=== PATIENT | female | born 1935 | race Caucasian/White ===

== ENCOUNTER 2017-01-25 17:28 | Inpatient (IN) | payer BC, OTHER ==
[2017-01-25] MEDS ORDERED: ASPIRIN COATED 81 MG TABLET.EC PO ONE (17:56)
[2017-01-25] MEDS ORDERED: ASPIRIN 81 MG CHEWABLE TABLETS ONE (18:01)
--- NOTE | 2017-01-25 18:07 | PDOC ---
Attending Attestation - Resident Resident Name: Shivam Abebe - ED Attending Attestation I have performed the following: I have examined & evaluated the patient, The case was reviewed & discussed with the resident, I agree w/resident's findings & plan, Exceptions are as noted - HPI HPI: 01/25/17 18:00 81 yo female dev cp 1 hour prior to arrival.She took 2 SL NTG and then felt weak and was hypotensive when EMS arrived.She received IVF and her SBP was normal upon arrival and she was no longer having any chest pain or dizziness. HPI -she was going down her stairs at home ,dev left parasternal chest pain, nonradiating. It was 10/10 initially.She was sweaty when it happened, She took 2 SL NTG but then felt dizzy.lightheaded and sat down. PMH CAD,cardiac stents ekg nsr @ 79, no signs of ischemia 01/25/17 18:10 - Physicial Exam PE: 01/25/17 19:13 wnwd alert 81 female with no complaints currently.Her SL NTG resolved her chest pain HEENT-nontraumatic normocephalic/eyes brandee,wears eyeglasses/oropharynx no exudates neck supple lungs cta b/l cvs +holosytolic murmer,[id number] abd soft,nontender extremities-no edema neuro axox3,moving all extremities - Medical Decision Making 01/25/17 19:[address] Wynn requests Hospitalist admit for OBS telemetry/Dr Cori Robert (cards) agrees w OBS telemetry
[2017-01-25] MEDS ORDERED: ONDANSETRON 4 MG/2 ML VIAL ONE (18:12)
--- NOTE | 2017-01-25 18:39 | PDOC ---
History of Present Illness - General Chief Complaint: Chest Pain Stated Complaint: CHEST PAIN Time Seen by Provider: 01/25/17 17:34 History Source: Patient, EMS, Family - History of Present Illness Initial Comments: 01/25/17 18:18 The patient is an 81F with a PMH of CAD s/p 1 stent, HTN, DM who presents to the ED via EMS after an episode of CP. The patient states that she was going up the stairs and experienced CP. The pain was retrosternal, not associated with nausea or SOB, but was associated with diaphoresis. She describes the pain as a tightness, 10/10 in severity, does not radiate. The patient states that she then took 2 nitro and as she was going down the stairs, felt lightheaded. She sat down and was found by her family to be dozing into space. EMS was called. BP was 80/40 on arrival. They gave her 1 L of fluid and her BP became 148/86. Past History - Past Medical History Allergies/Adverse Reactions: Allergies Allergy/AdvReac Type Severity Reaction Status Date / Time No Known Allergies Allergy Verified 01/25/17 17:50 Home Medications: Ambulatory Orders Amlodipine Besylate [Norvasc -] 10 mg PO DAILY 01/25/17 Atorvastatin Ca [Lipitor] 40 mg PO HS 01/25/17 Docusate Sodium [Colace -] 100 mg PO DAILY 01/25/17 Doxylamine Succinate [Unisom Sleep Aid] 25 mg PO HS 01/25/17 Esomeprazole Magnesium [Nexium 24Hr] 20 mg PO DAILY 01/25/17 Levothyroxine [Synthroid -] 100 mcg PO DAILY 01/25/17 Losartan Potassium 100 mg PO DAILY 01/25/17 Metoprolol Succinate [Toprol Xl -] 50 mg PO DAILY 01/25/17 Nitroglycerin 0.4 mg SL PRN PRN 01/25/17 Sitagliptin Phos/Metformin HCl [Janumet 50-500 mg Tablet] 1 each PO DAILY Cardiac Disorders: Yes (cardiac stent.) Diabetes: Yes HTN: Yes Hypercholesterolemia: Yes - Surgical History Cardiac Surgery: Yes (cardiac stent) - Psycho/Social/Smoking Cessation Hx Anxiety: No Suicidal Ideation: No Smoking History: Never smoked Have you smoked in the past 12 months: No Information on smoking cessation initiated: No Hx Alcohol Use: No Drug/Substance Use Hx: No Substance Use Type: None Review of Systems - Review of Systems Able to Perform ROS?: Yes Is the patient limited Sammarinese proficient: No Constitutional: No: Chills, Fever HEENTM: No: Blurred Vision Respiratory: No: Cough, Shortness of Breath, Wheezing Cardiac (ROS): No: Chest Pain, Lightheadedness, Palpitations ABD/GI: No: Nausea, Vomiting : No: Burning, Dysuria Neurological: No: Headache, Numbness, Tingling, Weakness *Physical Exam - Vital Signs Last Vital Signs Temp Pulse Resp BP Pulse Ox 97.2 F L 78 18 173/64 100 01/25/17 17:28 01/25/17 17:28 01/25/17 17:28 01/25/17 17:28 01/25/17 17:28 - Physical Exam General Appearance: Yes: Nourished, Appropriately Dressed HEENT: positive: Normal Voice, Hearing Grossly Normal Respiratory/Chest: positive: Lungs Clear, Normal Breath Sounds. negative: Chest Tender, Respiratory Distress, Decreased Breath Sounds, Paradoxal Breathing , Rhonchi, Stridor, Wheezing, Hyperresonant Cardiovascular: positive: Regular Rhythm, Regular Rate, S1, S2. negative: Diastolic Murmur, Systolic Murmur Gastrointestinal/Abdominal: positive: Flat, Soft. negative: Tender, Distended, Guarding, Rebound, Tenderness Integumentary: positive: Dry, Warm. negative: Cold, Clammy Neurologic: positive: manager electronic II-XII NML intact, Fully Oriented, Alert, Normal Mood/ Affect, Normal Response, Motor Strength 5/5, Respond to painful stimul, Responsive, Finger to Nose (normal). negative: Abnormal Cranial NS, EOM Palsy, Facial Droop, Numbness, Sensory Deficit, Confused, Disoriented, Depressed Affect Heart Score/ECG Review - ECG Impressions Normal ECG: Yes ED Treatment Course - LABORATORY CBC & Chemistry Diagram: 01/25/17 18:00 01/25/17 18:00 - Medications Given in the ED: ED Medications Discontinued Medications Generic Name Dose Route Start Last Admin Trade Name Freq PRN Reason Stop Dose Admin Aspirin 162 mg 01/25/17 17:56 01/25/17 18:02 Ecotrin - PO 01/25/17 17:57 162 mg ONCE ONE Administration Medical Decision Making - Medical Decision Making 01/25/17 18:41 The patient is an 81F with a PMH of CAD s/p stent, HTN, DM who presents after a hypotensive episode 2/2 nitro administration. Will order labs to r/o ACS. Low suspicion for stroke with a benign neurologic exam and no FND. Will monitor the patient and speak with her human resources support specialist Dr. Santa and her PCP Dr. Cantu. 01/25/17 18:45 Dr. Santa wants patient admitted for obs tele. Hospitalist paged. 01/25/17 20:10 Labs WNL. K = 3.2 Will replenish with k-dur. Hospitalist accepts admission for tele obs. Order placed. Patient signed out. *DC/Admit/Observation/Transfer Diagnosis at time of Disposition: Chest pain Qualifiers: Chest pain type: unspecified Qualified Code(s): R07.9 - Chest pain, unspecified - Discharge Dispostion Admit: Yes - Referrals Referrals: Tapan Davalos MD [Primary Care Provider] -
[2017-01-25 19:05] LABS: BASOPHIL 0.6 % (0-2.0); EOSINOPHIL 4.1 % (0-4.5); MCH 28.6 pg (25.7-33.7); MCHC 33.5 g/dl (32.0-36.0); MEAN CELL VOLUME 85.6 fl (80-96); MEAN PLT VOLUME 8.8 fl (7.5-11.1); NEUTROPHILS 67.8 % (42.8-82.8); PLATELET COUNT 239 K/MM3 (134-434); RDW 14.4 % (11.6-15.6); WHITE BLOOD COUNT 6.6 K/mm3 (4.0-10.0)
[2017-01-25 19:17] LABS: INR 1.07 (0.82-1.09); PROTHROMBIN TIME (PATIENT) 11.8 SEC (9.98-11.88)
[2017-01-25 19:27] LABS: ALBUMIN 3.4 g/dl (3.4-5.0); ANION GAP 7 (8-16); BILIRUBIN,TOTAL 0.3 mg/dL (0.2-1.0); CALCIUM 9.3 mg/dL (8.5-10.1); CO2 30 mmol/L (21-32); CPK 82 IU/L (26-192); CREATININE 1.3 mg/dL (0.55-1.02); GLUCOSE,RANDOM 234 mg/dL (74-106); SGOT/AST 19 U/L (15-37); SGPT/ALT 14 U/L (12-78); TOT PROT 7.9 g/dl (6.4-8.2)
[2017-01-25 19:29] LABS: ALK PHOS 106 U/L (45-117); TROPONIN I < 0.02 ng/ml (0.00-0.05)
[2017-01-25] MEDS ORDERED: POTASSIUM CHLORIDE TABS 20 MEQ TABLET.ER (FP) PO ONE ×2 (20:08→20:09)
--- NOTE | 2017-01-25 20:16 | PN ---
Teaching Attending Note Name of Resident: Milli Campos ATTENDING PHYSICIAN STATEMENT I saw and evaluated the patient. I reviewed the resident's note and discussed the case with the resident. I agree with the resident's findings and plan as documented. SUBJECTIVE: 81 yo F with pmhx of CAD s/p 1 stent (5 years ago), HTN, DM who presents after chest pain this am. States she had a chest tightness, which felt like squeezing in nature. States she took two nitro oen after another. Notes relief of chest pain. States she has not been taking any of her medications for 3-4 weeks, because she felt that she didn't need them. Notes shortness of breath with exertion. States she had a recent stress test 3-4 months ago, which was normal according to the patient. OBJECTIVE: Physical: VS: Vital Signs Period Temp Pulse Resp BP Sys/Patel Pulse Ox Last 24 Hr 97.2 F 75-80 18-18 134-173/58-67 98-100 GEN: NAD, resting in bed, AA0X3 HEENT: NCAT, PERRL, Throat without any erythema or exudates CARD: RRR S1, S2 II/ JESSIKA RESP: CTAB ABD: BSX4, NTD to palpatio EXT: - C/C/E CBCD WBC 6.6 K/mm3 (4.0-10.0) D 01/25/17 18:00 RBC 4.34 M/mm3 (3.60-5.2) 01/25/17 18:00 Hgb 12.4 GM/dL (10.7-15.3) 01/25/17 18:00 Hct 37.1 % (32.4-45.2) 01/25/17 18:00 MCV 85.6 fl (80-96) 01/25/17 18:00 MCHC 33.5 g/dl (32.0-36.0) 01/25/17 18:00 RDW 14.4 % (11.6-15.6) 01/25/17 18:00 Plt Count 239 K/MM3 (134-434) 01/25/17 18:00 MPV 8.8 fl (7.5-11.1) 01/25/17 18:00 CMP Sodium 137 mmol/L (136-145) 01/25/17 18:00 Potassium 3.2 mmol/L (3.5-5.1) L 01/25/17 18:00 Chloride 100 mmol/L (98-107) 01/25/17 18:00 Carbon Dioxide 30 mmol/L (21-32) 01/25/17 18:00 Anion Gap 7 (8-16) L 01/25/17 18:00 BUN 16 mg/dL (7-18) 01/25/17 18:00 Creatinine 1.3 mg/dL (0.55-1.02) H D 01/25/17 18:00 Creat Clearance w eGFR 39.31 (>60) 01/25/17 18:00 Random Glucose 234 mg/dL (74-106) H D 01/25/17 18:00 Calcium 9.3 mg/dL (8.5-10.1) 01/25/17 18:00 Total Bilirubin 0.3 mg/dL (0.2-1.0) D 01/25/17 18:00 AST 19 U/L (15-37) 01/25/17 18:00 ALT 14 U/L (12-78) 01/25/17 18:00 Alkaline Phosphatase 106 U/L (45-117) D 01/25/17 18:00 Total Protein 7.9 g/dl (6.4-8.2) 01/25/17 18:00 Albumin 3.4 g/dl (3.4-5.0) 01/25/17 18:00 CARDIAC ENZYMES Creatine Kinase 82 IU/L (26-192) 01/25/17 18:00 Troponin I < 0.02 ng/ml (0.00-0.05) 01/25/17 18:00 EKG- NSR- No acute ST-T Changes CXR- N0 acute process- prelim read ASSESSMENT AND PLAN: 81 F with pmhx of CAD (Stent), HTN, DM, HLD who presents with chest pain being admtited for ACS rule out 1.) Chest Pain - RO ACS - HEART 5 - TRend trop/ekg - Consider Echo if not already done outpt. - Cardio consult - Lipid panel - ASA, 02, BB, Morphine/Nitro prn pain 2.) DM - FS -RAISS - Chk. A1c - Hold home meds 3.) HTN - Can resume home meds tomorrow 4.) HLD - Chk. Lipid panel - C/W Statin 5.) Hypothyriodism - CHk. TSH, FT4 - Resume Levothyroxine 6.) GERD - Protonix 7.) MARY KATE - Gentle Hydration - Recheck, Hold Metformin - Avoid Nephrotoxins 8.) Dvt PPX - Mod Risk - Heparin [address] in Obs-Tele
[2017-01-25] MEDS ORDERED: PANTOPRAZOLE SODIUM 100 ML IVPB ONE ×2 (20:56→21:07)
[2017-01-25] MEDS ORDERED: PANTOPRAZOLE SODIUM 40 MG VIAL ONE (21:12)
--- NOTE | 2017-01-25 21:22 | HP ---
CHIEF COMPLAINT: " Left sided chest pain" PCP: Dr. Davalos Poem Writer: Dr. Santa HISTORY OF PRESENT ILLNESS: Patient is an 81-year-old female with significant past medical history of CAD s/ p 1 stent, Hypertension, Hyperlipidemia, Diabetes Mellitus, Hypothyroidism, constipation, low back pain presented to the ED via EMS with the chief complaints of Left sided chest pain. As per the patient, chest pain started this morning, located in the left side, 8/10 in intensity, non radiating, pressure type, associated with SOB, tingling and numbness of right arm and mouth. Since chest pain was persistent she took 2 Nitro that only relieved her pain slightly. Then she started having dizziness, blurring of vision. Her daughter then called 911. When EMS arrived, her BP was 80/ 40 mmHg and blood sugar was 290 mg/dl as per the daughter. She was given 1 L of NS and her BP improved. Denies palpitation, abdominal pain, nausea or vomiting, LOC, headache. Patient's counter clerk is Dr. Santa, stress test was done 3 months ago which was normal as per her daughter. Patient also mentions to have low back pain that started several weeks ago, work up hasn't been done. Daughter mentions that patient is non compliant with her medications, hasn't taken medications since 3-4 weeks. Patient has trouble sleeping at night especially because of her heart burn. Endoscopy and colonoscopy was done 15 years ago which she says was normal. ER course was notable for: (1) Afebrile, hemodynamically stable, troponin x 1 negative, hypokalemia 3.2 (2) CXR-official read pending; EKG: No significant ST changes (3) IV NS; Aspirin 162 mg Recent Travel: None PAST MEDICAL HISTORY: CAD s/p 1 stent, Hypertension, Hyperlipidemia, Diabetes Mellitus, Hypothyroidism, constipation, low back pain presented PAST SURGICAL HISTORY: As mentioned above OCCUPATION: Used to be a staff at [employer] Social History: Smoking: Denies Alcohol: Denies Drugs: Denies Family History: Unknown Allergies No Known Allergies Allergy (Verified 01/25/17 17:50) HOME MEDICATIONS: Home Medications Medication Instructions Recorded Amlodipine Besylate [Norvasc -] 10 mg PO DAILY 01/25/17 Atorvastatin Ca [Lipitor] 40 mg PO HS 01/25/17 Docusate Sodium [Colace -] 100 mg PO DAILY 01/25/17 Doxylamine Succinate [Unisom Sleep 25 mg PO HS 01/25/17 Aid] Esomeprazole Magnesium [Nexium 20 mg PO DAILY 01/25/17 24Hr] Levothyroxine [Synthroid -] 100 mcg PO DAILY 01/25/17 Losartan Potassium 100 mg PO DAILY 01/25/17 Metoprolol Succinate [Toprol Xl -] 50 mg PO DAILY 01/25/17 Nitroglycerin 0.4 mg SL PRN PRN 01/25/17 Sitagliptin Phos/Metformin HCl 1 each PO DAILY 01/25/17 [Janumet 50-500 mg Tablet] REVIEW OF SYSTEMS CONSTITUTIONAL: Absent: fever, chills, diaphoresis, generalized weakness, malaise, loss of appetite, weight change HEENT: Absent: rhinorrhea, nasal congestion, throat pain, throat swelling, difficulty swallowing, mouth swelling, ear pain, eye pain, visual changes CARDIOVASCULAR: Present: chest pain, Absent: syncope, palpitations, irregular heart rate, lightheadedness, peripheral edema RESPIRATORY: Present: shortness of breath, Absent: cough, dyspnea with exertion, orthopnea, wheezing, stridor, hemoptysis GASTROINTESTINAL: Absent: abdominal pain, abdominal distension, nausea, vomiting, diarrhea, constipation, melena, hematochezia GENITOURINARY: Absent: dysuria, frequency, urgency, hesitancy, hematuria, flank pain, genital pain MUSCULOSKELETAL: Present: back pain, Absent: myalgia, arthralgia, joint swelling, neck pain SKIN: Absent: rash, itching, pallor HEMATOLOGIC/IMMUNOLOGIC: Absent: easy bleeding, easy bruising, lymphadenopathy, frequent infections ENDOCRINE: Absent: unexplained weight gain, unexplained weight loss, heat intolerance, cold intolerance NEUROLOGIC: Present: dizziness, Absent: headache, focal weakness or paresthesias, unsteady gait, seizure, mental status changes, bladder or bowel incontinence PSYCHIATRIC: Absent: anxiety, depression, suicidal or homicidal ideation, hallucinations. PHYSICAL EXAMINATION Vital Signs - 24 hr 01/25/17 01/25/17 20:47 20:51 Pulse Rate [ 80 Apical] Respiratory 18 18 Rate Blood Pressure 168/67 [Arm] O2 Sat by Pulse 100 98 Oximetry (%) GENERAL: Elderly female, sitting comfortably in bed, Awake, alert, and fully oriented, in no acute distress. HEAD: Normal with no signs of trauma. EYES: EOM intact, no pallor or icterus. EARS, NOSE, THROAT: Ears normal. Moist mucous membranes. NECK: Supple. LUNGS: B/L Breath sounds equal, clear to auscultation bilaterally. No wheezes, and no crackles. No accessory muscle use. HEART: Regular rate and rhythm, normal S1 and S2 with soft systolic murmur left and right second ICS. ABDOMEN: Soft, nontender, not distended, normoactive bowel sounds, no guarding, no rebound, no masses. No hepatomegaly or splenomegaly. MUSCULOSKELETAL: Normal range of motion at all joints. No bony deformities or tenderness. No CVA tenderness. UPPER EXTREMITIES: 2+ pulses, warm, well-perfused. No cyanosis. No clubbing. No peripheral edema. LOWER EXTREMITIES: 2+ pulses, warm, well-perfused. No calf tenderness. No peripheral edema. NEUROLOGICAL: No facial droop; Power 5/5 in all ext; Reflexes intact; Cranial nerves II-XII intact. Normal speech. Gait not observed. PSYCHIATRIC: Cooperative. Good eye contact. Appropriate mood and affect. SKIN: Warm, dry, normal turgor, no rashes or lesions noted, normal capillary refill. ASSESSMENT/PLAN: Patient is an 81-year-old female with significant past medical history of CAD s/ p 1 stent, Hypertension, Hyperlipidemia, Diabetes Mellitus, Hypothyroidism, constipation, low back pain presented to the ED via EMS with the chief complaints of Left sided chest pain. # Chest pain- R/O ACS Presented with left sided chest pain, pressure type; associated with dizziness, blurring of vision, tingling and numbness of right arm and mouth; not relieved by nitro On arrival, afebrile, hemodynamically stable In the ED, received IV NS; Aspirin 162 mg Chest pain has now resolved Placed on observation Troponin x 1 negative----> repeat troponin at midnight Continuous cardiac monitoring ECHO in am if patient hasn't recently done at her counter clerk Dr. Santa consult requested # Acute Kidney Injury likely prerenal Creatinine 1.3, baseline 0.9 in 2014 Gentle hydration Hold Nephrotoxic drugs. Will repeat creatinine in AM, if MARY KATE continues, would consider a renal ultrasound and urine electrolytes. # Hypokalemia K-3.2, repleted and will repeat in AM Magnesium pending # Hypertension-Now stable Continue home medications from tomorrow: Losartan 100mg Daily; Metoprolol 50mg Daily and Amlodipine 10mg Daily Patient was hypotensive after receiving 2 Nitro, hence holding BP meds today. # Hyperlipidemia Continue Atorvastatin 40mg HS Lipid panel in am # Diabetes Mellitus A1c ordered for AM. Hold Janumet Insulin sliding scale, BGM Watch for hypoglycemic episodes. # Hypothyroidism Continue Levothyroxine 100 mcg TSH ordered for AM. # Constipation Continue Docusate, encourage plenty of oral fluids and high fibre diet # Low back pain If pain continues, would consider imaging of the back as patient has never had any work up done in the past. # Non compliance to home meds Counselled patient, she understands the risks of not taking medication and agrees to be compliant. # FEN IV NS @ 83mls.hr Electrolytes: Hypokalemia, repleted Diabetic diet. # Prophylaxis For DVT: On Hepairn 5000 IU sq For GI: IV Protonix 40mg daily for heart burn # Code Status: Full Code # Dispo: Placed in observation in Tele. If ACS is ruled out, possible discharge in 1-2 days. Illness, Investigation and Plan of care explained to the patient. She verbalized understanding. Case seen and discussed with Dr. Timmons. Visit type - Emergency Visit Emergency Visit: Yes ED Registration Date: 01/25/17 Care time: The patient presented to the Emergency Department on the above date and was hospitalized for further evaluation of their emergent condition. - New Patient This patient is new to me today: Yes Date on this admission: 01/25/17 - Critical Care Critical Care patient: No
[2017-01-25] MEDS ORDERED: NITROGLYCERIN SUBLINGUAL 1/150 0.4 MG TAB SL PRN (21:26)
[2017-01-25] MEDS ORDERED: SODIUM CHLORIDE 1,000 ML IV SCH (21:30)
[2017-01-25] MEDS ORDERED: ATORVASTATIN CA 40 MG TABLET (FP) PO SCH (22:00)
[2017-01-25] MEDS: INSULIN SLIDING SCALE (NOVOLOG) 1 VIAL SQ SCH (22:17)
[2017-01-25] MEDS ORDERED: MAGNESIUM OXIDE 400 MG TABLET (FP) PO ONE (23:19)
[2017-01-26 01:08] VITALS: BMI 24.9
[2017-01-26] MEDS: HEPARIN NA (PORCINE) 5,000 UNITS/ML 1ML VIAL SQ SCH ×3 (06:16→22:09)
[2017-01-26] MEDS: LEVOTHYROXINE NA 100 MCG TABLET (FP) PO SCH (06:17)
[2017-01-26] MEDS: INSULIN SLIDING SCALE (NOVOLOG) 1 VIAL SQ SCH ×4 (06:17→22:15)
[2017-01-26 07:36] LABS: INR 1.03 (0.82-1.09); PROTHROMBIN TIME (PATIENT) 11.3 SEC (9.98-11.88)
[2017-01-26 07:56] LABS: MAGNESIUM 1.8 mg/dL (1.8-2.4)
[2017-01-26 07:58] LABS: CHOLESTEROL 283 mg/dL (50-200)
[2017-01-26] MEDS ORDERED: MAGNESIUM OXIDE 400 MG TABLET (FP) PO ONE (08:30)
[2017-01-26 08:37] LABS: ALBUMIN 3.1 g/dl (3.4-5.0); ANION GAP 5 (8-16); BILIRUBIN,TOTAL 0.3 mg/dL (0.2-1.0); CALCIUM 8.9 mg/dL (8.5-10.1); CO2 28 mmol/L (21-32); CREATININE 0.9 mg/dL (0.55-1.02); GLUCOSE,RANDOM 137 mg/dL (74-106); SGOT/AST 18 U/L (15-37); SGPT/ALT 10 U/L (12-78); TOT PROT 7.2 g/dl (6.4-8.2)
[2017-01-26 08:45] LABS: ALK PHOS 94 U/L (45-117); TROPONIN I < 0.02 ng/ml (0.00-0.05)
[2017-01-26] MEDS: METOPROLOL SUCCINATE 50 MG TAB.SR.24H (FP) PO SCH (09:08)
[2017-01-26] MEDS: LOSARTAN POTASSIUM 50 MG TABLET (FP) PO SCH (09:08)
[2017-01-26] MEDS: DOCUSATE SODIUM 100 MG CAPSULE (FP) PO SCH (09:08)
[2017-01-26] MEDS: amLODIPine BESYLATE 10 MG TABLET (FP) PO SCH (09:08)
[2017-01-26] MEDS ORDERED: PANTOPRAZOLE SODIUM 40 MG in SODIUM CHLORIDE 100 ML IVPB SCH (10:00)
--- NOTE | 2017-01-26 12:15 | PN ---
Progress Note (short form) - Note Progress Note: PULMONARY CONSULTATION DICTATED 01/26/17 IMP CHEST PAIN SYNDROME R/O CARDIAC ASHD S/P STENT HTN DM HLD HYPOTHYROIDISM PLAN CE O2 CARDIOLOG[address] EV[address] RAPP Problem List - Problems (1) Chest pain Code(s): R07.9 - CHEST PAIN, UNSPECIFIED Qualifiers: Chest pain type: unspecified Qualified Code(s): R07.9 - Chest pain, unspecified (2) ASHD (arteriosclerotic heart disease) Code(s): I25.10 - ATHSCL HEART DISEASE OF [place] CORONARY ARTERY W/O ANG PCTRS (3) HTN (hypertension) Code(s): I10 - ESSENTIAL (PRIMARY) HYPERTENSION (4) Diabetes Code(s): E11.9 - TYPE 2 DIABETES MELLITUS WITHOUT COMPLICATIONS (5) HLD (hyperlipidemia) Code(s): E78.5 - HYPERLIPIDEMIA, UNSPECIFIED (6) Hypothyroid Code(s): E03.9 - HYPOTHYROIDISM, UNSPECIFIED
--- NOTE | 2017-01-26 13:57 | EKG ---
Test Reason : Blood Pressure : / mmHG Vent. Rate : 079 BPM Atrial Rate : 079 BPM P-R Int : 202 ms QRS Dur : 092 ms QT Int : 410 ms P-R-T Axes : 052 045 080 degrees QTc Int : 470 ms NORMAL SINUS RHYTHM POSSIBLE LEFT ATRIAL ENLARGEMENT BORDERLINE ECG WHEN COMPARED WITH ECG OF 17-JAN-2009 13:45, NO SIGNIFICANT CHANGE WAS FOUND Confirmed by JERICHO CHANDLER MD ([id number]) on 01/26/2017 1:56:34 PM Referred By: Confirmed By:JERICHO CHANDLER MD
--- NOTE | 2017-01-26 16:33 | PN ---
Physical Exam: SUBJECTIVE: Patient seen and examined at the bedside with her daughter in attendance. As per patient's daughter, patient is non-compliant with all her home medications including Synthroid Patient reports feeling better, denies chest pain or shortness of breath. OBJECTIVE: Patient seen with her daughter at the bedside TSH elevated @ 85.5, likely secondary to Synthroid non compliance. Will not increase Synthroid but since patient is non compliant with her meds, she will need close VNS follow up for medication compliance. This is being set up. Vital Signs Period Temp Pulse Resp BP Sys/Patel Pulse Ox Last 24 Hr 97.9 F-98.7 F 62-80 14-18 145-196/60-80 98-100 GENERAL: The patient is awake, alert, and fully oriented, in no acute distress. HEAD: Normal with no signs of trauma. EYES: PERRL, extraocular movements intact, sclera anicteric, conjunctiva clear. No ptosis. ENT: Ears normal, nares patent, oropharynx clear without exudates, moist mucous membranes. NECK: Trachea midline, full range of motion, supple. LUNGS: Breath sounds equal, clear to auscultation bilaterally, no wheezes, no crackles, no accessory muscle use. HEART: Regular rate and rhythm, S1, S2 without murmur, rub or gallop. ABDOMEN: Soft, nontender, nondistended, normoactive bowel sounds, no guarding, no rebound, no hepatosplenomegaly, no masses. EXTREMITIES: 2+ pulses, warm, well-perfused, no edema. NEUROLOGICAL: . Normal speech, gait not observed. PSYCH: Normal mood, normal affect. SKIN: Warm, dry, normal turgor, no rashes or lesions noted Laboratory Results - last 24 hr 01/25/17 01/25/17 01/25/17 22:14 23:45 Unknown PT with INR INR Sodium Potassium Chloride Carbon Dioxide Anion Gap BUN Creatinine Creat Clearance w eGFR POC Glucometer 215 Random Glucose Hemoglobin A1c % Calcium Phosphorus Magnesium 1.7 L Total Bilirubin AST ALT Alkaline Phosphatase Troponin I < 0.02 Total Protein Albumin Triglycerides Cholesterol Total LDL Cholesterol HDL Cholesterol TSH 01/26/17 01/26/17 01/26/17 05:35 05:35 05:35 PT with INR 11.30 INR 1.03 Sodium 138 Potassium 3.7 Chloride 105 Carbon Dioxide 28 Anion Gap 5 L BUN 12 D Creatinine 0.9 D Creat Clearance w eGFR > 60 POC Glucometer Random Glucose 137 H D Hemoglobin A1c % 8.5 H D Calcium 8.9 Phosphorus 3.0 Magnesium 1.8 Total Bilirubin 0.3 AST 18 ALT 10 L D Alkaline Phosphatase 94 Troponin I < 0.02 Total Protein 7.2 Albumin 3.1 L Triglycerides 270 H D Cholesterol 283 H D Total LDL Cholesterol 176 H HDL Cholesterol 50 D TSH 85.50 H D 01/26/17 01/26/17 01/26/17 05:35 05:35 05:35 PT with INR INR Sodium Cancelled Potassium Cancelled Chloride Cancelled Carbon Dioxide Cancelled Anion Gap Cancelled BUN Cancelled Creatinine Cancelled Creat Clearance w eGFR Cancelled POC Glucometer 135 Random Glucose Cancelled Hemoglobin A1c % Calcium Cancelled Phosphorus Magnesium Total Bilirubin Cancelled AST Cancelled ALT Cancelled Alkaline Phosphatase Cancelled Troponin I Cancelled Total Protein Cancelled Albumin Cancelled Triglycerides Cholesterol Total LDL Cholesterol HDL Cholesterol TSH 01/26/17 11:56 PT with INR INR Sodium Potassium Chloride Carbon Dioxide Anion Gap BUN Creatinine Creat Clearance w eGFR POC Glucometer 170 Random Glucose Hemoglobin A1c % Calcium Phosphorus Magnesium Total Bilirubin AST ALT Alkaline Phosphatase Troponin I Total Protein Albumin Triglycerides Cholesterol Total LDL Cholesterol HDL Cholesterol TSH Active Medications Generic Name Dose Route Start Last Admin Trade Name Freq PRN Reason Stop Dose Admin Amlodipine Besylate 10 mg 01/26/17 10:00 01/26/17 09:08 Norvasc - PO 10 mg DAILY LILLIAN Administration Atorvastatin Calcium 40 mg 01/25/17 22:00 01/25/17 22:14 Lipitor - PO 40 mg HS LILLIAN Administration Docusate Sodium 100 mg 01/26/17 10:00 01/26/17 09:08 Colace - PO 100 mg DAILY LILLIAN Administration Heparin Sodium (Porcine) 5,000 unit 01/26/17 06:00 01/26/17 14:08 Heparin - SQ 5,000 unit TID LILLIAN Administration Pantoprazole Sodium 40 mg/ 100 mls @ 200 mls/hr 01/26/17 10:00 01/26/17 10:32 Sodium Chloride IVPB 200 mls/hr DAILY LILLIAN Administration Insulin Aspart 1 vial 01/25/17 22:00 01/26/17 12:00 Novolog Vial Sliding Scale - SQ 2 units ACHS LILLIAN Administration Protocol Levothyroxine Sodium 100 mcg 01/26/17 07:00 01/26/17 06:17 Synthroid - PO 100 mcg DAILY@0700 LILLIAN Administration Losartan Potassium 100 mg 01/26/17 10:00 01/26/17 09:08 Cozaar - PO 100 mg DAILY LILLIAN Administration Metoprolol Succinate 50 mg 01/26/17 10:00 01/26/17 09:08 Toprol Xl - PO 50 mg DAILY LILLIAN Administration Nitroglycerin 0.4 mg 01/25/17 21:26 Nitrostat - SL PRN PRN chest pain ASSESSMENT/PLAN: Patient is an 81-year-old female with significant past medical history of CAD s/ p 1 stent, hypertension, hyperlipidemia, diabetes mellitus, hypothyroidism, constipation and low back pain. She presented to the ED on 01/25/17 with left sided chest pain. On admission she described her chest pain to be located in the left side, 8/10 in intensity, non radiating, pressure type, associated with SOB, tingling and numbness of right arm and mouth. At home she took 2 Nitro SL that only relieved her pain slightly. Then she started having dizziness, blurring of vision. Her daughter then called 911. When EMS arrived, her BP was 80/ 40 mmHg and blood sugar was 290 mg/dl as per the daughter. She was bloused with IVF and her BP improved. On exam, she denies any further chest pain, shortness of breath or discomfort. Cardiology: Chest pain - R/O ACS - acute A/P: Received NS bolus for hypotension and ASA 162mg Chest pain has now resolved, tolerating room air, appears comfortable at rest Troponin x 3 negative Continuous cardiac monitoring Echo shows LA mod dilated, mild tricuspid regurg, nodular thickening and calcification of the aortic valve w/o evidence of stenosis EKG: SR with possible left atrial enlargement, unchanged EKG when compared to EKG in 2009 Cardiology consulted Hypertension - chronic A/P: On Losartan 100mg Daily, Metoprolol 50mg Daily, Amlodipine 10mg Daily BP elevated this morning, likely secondary to IVF, IVF d/cd Monitor BP Hyperlipidemia: A/P: Elevated lipid panel likely secondary to med non compliance Increase Lipitor to 60mg at HS Endocrine: Diabetes Mellitus - chronic A/P: hmg a1c 8.5 Continue Novolog, on home metformin Hypothyroidism A/P: Continue Levothyroxine 100 mcg TSH elevated likely secondary to home medication non compliance Repeat TSH in 6 weeks F.E.N. Fluids: tolerating PO Electrolytes: monitor electrolytes Nutrition: diabetic diet Prophylaxis: DVT: On Hepairn 5000 IU sq GI: IV Protonix 40mg daily for heart burn Dispo: Placed in observation in Tele. Discharge likely tomorrow once cleared by cardiology. Full code. Visit type - Emergency Visit Emergency Visit: Yes ED Registration Date: 01/25/17 Care time: The patient presented to the Emergency Department on the above date and was hospitalized for further evaluation of their emergent condition. - New Patient This patient is new to me today: Yes Date on this admission: 01/26/17 - Critical Care Critical Care patient: No - Discharge Referral Referred to [facility] No
--- NOTE | 2017-01-26 18:59 | CONS ---
DATE OF CONSULTATION: 01/26/2017 PULMONARY CONSULTATION REFERRING PHYSICIAN: Gaby Amaral N.P. HISTORY OF PRESENT ILLNESS: The patient is an 81-year-old [place] female, past medical history ASHD status post stent, hypertension, non-insulin dependent diabetes mellitus, nonsmoker, admitted to [facility] complaining of chest pain. Patient states she was doing well until yesterday admission when she states she was very active, going up and down the stairs, at which time she experienced chest pain. Describes the pain as pressure like in character, nonradiating, not associated nausea, vomiting, but did have diaphoreses. She states that the pain was 10/10 in severity. She states that she took 2 nitroglycerin when she was going down the stairs and suddenly felt lightheaded. Apparently the patient sat down, the family found her dozing, disoriented. EMS was called. Patient was noted to be hypotensive with blood pressure of 80/40. She was administered normal saline with good clinical response and blood pressure went up to 148/86. She denies any shortness of breath, denies any cough or hemoptysis. She is a nonsmoker. There is no history of occupational exposure to chemicals or fumes. There is no history of recent travel DVT or PE in the past. PAST MEDICAL HISTORY: Again includes ASHD status post stent. Diabetes. Hypertension. SOCIAL HISTORY: Again , nonsmoker. No occupational exposures. 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 MEDICATION: Prior to admission include Norvasc, Lipitor, Colace, Unisom sleep aid, Nexium, Synthroid, Toprol XL, losartan. CURRENT MEDICATIONS: Include Cozaar, heparin, Toprol XL, Colace, Norvasc, Lipitor, Novolog, Nitrostat, pantoprazole, and Synthroid. REVIEW OF SYSTEMS: No orthopnea, no PND. Positive chest pain. No cough. No hemoptysis. No abdominal pain. No nausea. No vomiting . No lower extremity edema. PHYSICAL EXAMINATION: General: The patient is an elderly white female, awake, alert, in no acute distress. Vital signs: She is currently afebrile. Blood pressure 156/74, respiratory rate 14, O2 saturation 98% on room air. HEENT: Head is normocephalic, atraumatic. Neck: Supple. Heart: Regular. S1, S2. Chest: Clear. Abdomen: Soft. Bowel sounds positive. Extremities: No cyanosis, edema. LABORATORY: WBC 6.6, hemoglobin 12.4, hematocrit 37.1, platelet count of 239,000, INR 1.03. Hemoglobin A1c is 8.5, troponin 0.02, cholesterol 283, triglycerides 270, [id number]. Chest x-ray, no infiltrates and no effusions. IMPRESSION: 1. Chest pain syndrome, unstable angina. 2. Atherosclerotic heart disease status post stent. 3. Hypertension. 4. Diabetes. PLAN: Cardiac enzymes. Cardiology evaluation. Continue anticoagulation. Continue current medications. Cardiology consultation. ROXY RAPP M.D. JUDY/[id number]
[2017-01-26] MEDS ORDERED: ACETAMINOPHEN 325 MG TABLET (FP) PO PRN (20:45)
[2017-01-26 21:54] LABS: BASOPHIL 0.6 % (0-2.0); EOSINOPHIL 2.7 % (0-4.5); MCH 28.5 pg (25.7-33.7); MCHC 33.8 g/dl (32.0-36.0); MEAN CELL VOLUME 84.3 fl (80-96); MEAN PLT VOLUME 9.1 fl (7.5-11.1); NEUTROPHILS 79.3 % (42.8-82.8); PLATELET COUNT 232 K/MM3 (134-434); RDW 14.4 % (11.6-15.6)
[2017-01-26] MEDS ORDERED: ATORVASTATIN CA 20 MG TABLET (FP) PO SCH (22:00)
--- NOTE | 2017-01-26 22:11 | CONS ---
DATE OF CONSULTATION: 01/26/2017 TIME OF CONSULTATION: 5 p.m. REQUESTING PHYSICIAN: Consultation requested by hospitalist. REASON FOR CONSULTATION: Cardiology consultation. CHIEF COMPLAINT: 1. Chest pain. 2. Lightheadedness. Dizziness. Associated visual disturbances. HISTORY OF PRESENT ILLNESS: The patient is an 81-year-old female with longstanding history of coronary artery disease, angina pectoris, status post PCI/stenting, non-insulin dependent diabetes mellitus, hypertension, hypertensive cardiovascular disease, hypercholesterolemia, hypothyroidism on replacement therapy, developed sudden onset of anterior pressure-like chest discomfort with picking up on Thursday morning. Pain was promptly relieved by sublingual nitroglycerin. Patient later in the day went out with her daughter and was doing up and down stairs when she suddenly developed recurrence of anterior pressure-like chest pain, took sublingual nitroglycerin without effect, took a second nitroglycerin and after a few minutes started to feel lightheaded, was unsteady, and noticed that her vision was becoming hazy and she sat down. Symptoms persisted, paramedics were called, and was found to be hypotensive and was given IV fluids. She states that the pain subsided after the second nitroglycerin and she did experience paresthesias involving her hand and her lips. There is no history of palpitations, no history of syncope. According to her daughter, she has been mostly pain free in the recent past. There is no history of dyspnea either at rest or with exertion. No history of paroxysmal nocturnal dyspnea or orthopnea. PAST HISTORY: As mentioned in the history of present illness. SURGICAL HISTORY: According to her daughter, she has had no surgeries . SOCIAL HISTORY: She is a , retired [employer] employee, has 2 daughters and a son. Daughter has high blood pressure. No history of smoking or alcohol use. FAMILY HISTORY: Father in his late 70s related to cancer of the bone, mother of pancreatic cancer also in her late 60s. She has 2 brothers and a sister, one of the brothers is hypertensive. ALLERGIES: None reported. MEDICATION: Current medications are as follows. 1. Losartan 100 mg p.o. daily. 2. Metoprolol succinate 50 mg p.o. daily. 3. Amlodipine besylate 10 mg p.o. daily. 4. Lipitor 60 mg p.o. daily at bedtime. 5. Novolog insulin via sliding scale. 6. Nitrostat 0.4 mg sublingually p.r.n. with chest discomfort. 7. 40 mg p.o. daily. 8. Levothyroxine 100 mcg p.o. daily. REVIEW OF SYSTEMS: Constitutional: No history of chills, fever, or night sweats. No history of unintentional weight loss. HEENT: No history of intermittent occipital headaches, history of visual disturbance during current episode. No history of diplopia. No history of epistaxis, hoarseness, tinnitus or deafness reported. Cardiovascular: See history of present illness. Respiratory: No history of cough, expectoration or hemoptysis. No history of tuberculosis. Gastrointestinal: No history of nausea, vomiting, melena or hematemesis. History of epigastric discomfort, no history of change in bowel habits. Neurological: No history of seizures or syncope, no history of focal weakness. See history of present illness. Musculoskeletal: History of arthritis involving the spine. No history of myalgias. Endocrine: See history of present illness. No history of polyuria or polydipsia. No history of intolerance to cold or warm weather. Urinary System: History of increasing frequency, no history of dysuria or hematuria reported. Hematological System: No history of ecchymosis, anemia, or bleeding. PHYSICAL EXAMINATION: General: An 81-year-old alert female was in no acute distress, no pallor, cyanosis, clubbing, or jaundice. Vital signs: Weight 136.3 pounds. Blood pressure 162/78 mmHg, pulse 62 beats per minute and regular, respirations 18 per minute. Patient was afebrile. Oxygen saturation was 98%. Neck: Supple. No jugulovenous distention. Carotids were 2+, upstrokes were normal, no bruits were heard, and no thyromegaly was present. Heart: PMI was in the 5th intercostal space, no heaves or thrills. S1 and S2 were normal. Ejection systolic murmur grade 2/6 was heard at the second right intercostal space and at the left sternal border, ending in early systole. There was a decrescendo apical systolic murmur grade 2/6. No diastolic murmur or gallops were heard. Lungs: Clear on auscultation. Abdomen: Soft. Slightly protuberant, nontender, no hepatosplenomegaly or palpable masses were felt. No bruits were heard, and bowel sounds were active. Extremities: No calf tenderness or dependent edema, femoral pulses were 2+. Posterior tibial pulses could not be palpated. Dorsalis pedis pulse on the left was 1+, on the right was 2+. LABORATORY DATA: CBC: WBC count 6600, hemoglobin 12.4 g/dL. Platelet count 239,000. Differential were grossly normal. Chemistry: Glucose was 135, hemoglobin A1c was 8.5%. Lab data on January 25, 2017, chemistry: sodium 137, potassium 3.2, chloride 100, CO2 of 30 mmol/L. Random glucose was 234. Repeat basic metabolic panel: sodium 138, potassium 3.7, chloride 105, CO2 of 28 mmol/L. BUN 12, creatinine 1.3 mg/dL. Glucose 137 mg/dL. Hemoglobin A1c was 8.5%. Magnesium on admission was 1.7, followup was 1.8. Total cholesterol was 287, triglycerides 270, LDL cholesterol 176, HDL cholesterol 50 mg/dL. TSH 85.50. ECG dated January 25, normal sinus rhythm, slow R wave progression V1 to V3, nonspecific T wave abnormalities. Compared to ECG of January 17, 2009, no significant changes were reported. Echocardiogram, interpretation summary: The left ventricle is normal in size. Left ventricular systolic function is normal. No regional wall motion abnormalities noted. The left atrium is moderately dilated. There is moderate mitral annular calcification. Focal calcification of the anterior mitral leaflet. There is mild tricuspid regurgitation. Nodular thickening and calcification of the aortic valve without evidence of stenosis. No aortic regurgitation is present. There is no pericardial effusion. X-ray chest, impression: No acute pathology. No significant change since January 13, 2009. IMPRESSION: 1. Coronary artery disease, status post percutaneous coronary intervention/stenting, recurrence of angina pectoris. 2. Hypertension, hypertensive cardiovascular disease. 3. Severe hypothyroidism. 4. Non-insulin dependent diabetes mellitus. Poorly controlled. 5. Hypercholesterolemia. 6. Mitral valvular disease. 7. Aortic valve sclerosis. 8. Systolic murmurs secondary to 7. 9. Poor compliance. 10. Dyslipidemia type 2B. RECOMMENDATION: 1. Increase the dose of Toprol to 100 mg p.o. daily as her blood pressure is not controlled. 2. Consider adding lower dose isosorbide nitrate. 3. Consider ENT evaluation in view of significant elevation of TSH. 4. Dipyridamole Myoview stress test. 5. Follow up ECG. 6. Risk modifications. 7. Further suggestions would depend upon the results of the above mentioned tests. 8. Prognosis guarded. Thank you for your referral. GWEN HAMM M.D. CAPRI/[id number]
[2017-01-26 22:20] LABS: ANION GAP 8 (8-16); CALCIUM 8.5 mg/dL (8.5-10.1); CO2 26 mmol/L (21-32); CREATININE 0.9 mg/dL (0.55-1.02); GLUCOSE,RANDOM 169 mg/dL (74-106)
[2017-01-26 22:45] LABS: URINE APPEARANCE CLEAR; URINE BILIRUBIN NEGATIVE (NEGATIVE); URINE BLOOD NEGATIVE (NEGATIVE); URINE COLOR DKYELLOW; URINE GLUCOSE (UA) 1+ (NEGATIVE); URINE KETONE NEGATIVE (NEGATIVE); URINE LEUK ESTERASE TRACE (NEGATIVE); URINE NITRITE NEGATIVE (NEGATIVE); URINE PROTEIN NEGATIVE (NEGATIVE); URINE UROBILINOGEN NEGATIVE mg/dL (0.2-1.0)
[2017-01-26 22:57] LABS: URINE BACTERIA RARE /hpf (NONE SEEN); URINE RBC 1 /hpf (0-3); URINE WBC 9 /hpf (3-5)
[2017-01-27] MEDS: LEVOTHYROXINE NA 100 MCG TABLET (FP) PO SCH (06:06)
[2017-01-27] MEDS: HEPARIN NA (PORCINE) 5,000 UNITS/ML 1ML VIAL SQ SCH (06:06)
[2017-01-27] MEDS: INSULIN SLIDING SCALE (NOVOLOG) 1 VIAL SQ SCH ×4 (06:06→21:17)
[2017-01-27 08:04] LABS: BASOPHIL 0.6 % (0-2.0); EOSINOPHIL 5.6 % (0-4.5); MCH 28.1 pg (25.7-33.7); MEAN CELL VOLUME 85.2 fl (80-96); MEAN PLT VOLUME 9.4 fl (7.5-11.1); NEUTROPHILS 67.6 % (42.8-82.8); PLATELET COUNT 223 K/MM3 (134-434); RDW 14.7 % (11.6-15.6); WHITE BLOOD COUNT 5.6 K/mm3 (4.0-10.0)
[2017-01-27 08:11] LABS: ALK PHOS 147 U/L (45-117); ANION GAP 9 (8-16); BILIRUBIN,TOTAL 2.7 mg/dL (0.2-1.0); CALCIUM 8.7 mg/dL (8.5-10.1); CO2 28 mmol/L (21-32); CREATININE 1.1 mg/dL (0.55-1.02); GLUCOSE,RANDOM 140 mg/dL (74-106); SGOT/AST 228 U/L (15-37); SGPT/ALT 81 U/L (12-78); TOT PROT 6.9 g/dl (6.4-8.2)
[2017-01-27] MEDS ORDERED: SODIUM CHLORIDE 500 ML IV STA (08:15)
[2017-01-27] MEDS ORDERED: POTASSIUM CHLORIDE ORAL LIQUID 20 MEQ/15 ML PO ONE (08:30)
[2017-01-27] MEDS: LOSARTAN POTASSIUM 50 MG TABLET (FP) PO SCH (09:41)
[2017-01-27] MEDS: amLODIPine BESYLATE 10 MG TABLET (FP) PO SCH (09:42)
[2017-01-27] MEDS: DOCUSATE SODIUM 100 MG CAPSULE (FP) PO SCH (09:42)
--- NOTE | 2017-01-27 09:59 | PN ---
Physical Exam: SUBJECTIVE: Patient seen and examined at the bedside. Patient febrile overnight 101.5 Patient denies any fever/chills, coughing or shortness of breath Denies any abdominal pain, diarrhea or nausea. Denies any urinary burning or frequency OBJECTIVE: Fever of 101.5 overnight > blood and urine cultures ordered. Lungs clear to auscultation, no coughing, no respiratory symptoms, chest xray negative, lactic acid 1.6 UA: normal ph, wbc 9 AST, ALT and Bili elevated, will stop Lipitor, Liver u/s pending For stress test today TSH elevated @ 85.5, likely secondary to Synthroid non compliance. Will not increase Synthroid but since patient is non compliant with her meds, she will need close VNS follow up for medication compliance. This is being set up. Vital Signs Period Temp Pulse Resp BP Sys/Patel Pulse Ox Last 24 Hr 98.1 F-101.5 F 56-78 14-20 105-196/49-80 97-98 GENERAL: The patient is awake, alert, and fully oriented, in no acute distress. HEAD: Normal with no signs of trauma. EYES: PERRL, extraocular movements intact, sclera anicteric, conjunctiva clear. No ptosis. ENT: Ears normal, nares patent, oropharynx clear without exudates, moist mucous membranes. NECK: Trachea midline, full range of motion, supple. LUNGS: Breath sounds equal, clear to auscultation bilaterally, no wheezes, no crackles, no accessory muscle use. HEART: Regular rate and rhythm, S1, S2 without murmur, rub or gallop. ABDOMEN: Soft, nontender, nondistended, normoactive bowel sounds, no guarding, no rebound, no hepatosplenomegaly, no masses. EXTREMITIES: 2+ pulses, warm, well-perfused, no edema. NEUROLOGICAL: . Normal speech, gait not observed. PSYCH: Normal mood, normal affect. SKIN: Warm, dry, normal turgor, no rashes or lesions noted Laboratory Results - last 24 hr 01/26/17 01/26/17 01/26/17 11:56 16:34 21:30 WBC 7.0 RBC 4.13 Hgb 11.8 Hct 34.9 MCV 84.3 MCH 28.5 MCHC 33.8 RDW 14.4 Plt Count 232 MPV 9.1 Neutrophils % 79.3 Lymphocytes % 11.6 D Monocytes % 5.8 Eosinophils % 2.7 Basophils % 0.6 Sodium Potassium Chloride Carbon Dioxide Anion Gap BUN Creatinine Creat Clearance w eGFR POC Glucometer 170 177 Random Glucose Lactic Acid Calcium Total Bilirubin AST ALT Alkaline Phosphatase Total Protein Albumin Urine Color Urine Appearance Urine pH Ur Specific [place] Urine Protein Urine Glucose (UA) Urine Ketones Urine Blood Urine Nitrite Urine Bilirubin Urine Urobilinogen Urine RBC Urine WBC Ur Epithelial Cells Urine Bacteria 01/26/17 01/26/17 01/26/17 21:30 22:15 22:30 WBC RBC Hgb Hct MCV MCH MCHC RDW Plt Count MPV Neutrophils % Lymphocytes % Monocytes % Eosinophils % Basophils % Sodium 133 L Potassium 3.5 Chloride 99 Carbon Dioxide 26 Anion Gap 8 BUN 12 Creatinine 0.9 Creat Clearance w eGFR POC Glucometer 167 Random Glucose 169 H D Lactic Acid Calcium 8.5 Total Bilirubin AST ALT Alkaline Phosphatase Total Protein Albumin Urine Color Dkyellow Urine Appearance Clear Urine pH 7.0 Ur Specific [place] 1.015 Urine Protein Negative Urine Glucose (UA) 1+ H Urine Ketones Negative Urine Blood Negative Urine Nitrite Negative Urine Bilirubin Negative Urine Urobilinogen Negative Urine RBC 1 Urine WBC 9 Ur Epithelial Cells Few Urine Bacteria Rare 01/27/17 01/27/17 01/27/17 05:35 05:35 05:58 WBC 5.6 RBC 4.28 Hgb 12.0 Hct 36.4 MCV 85.2 MCH 28.1 MCHC 33.0 RDW 14.7 Plt Count 223 MPV 9.4 Neutrophils % 67.6 Lymphocytes % 18.7 D Monocytes % 7.5 Eosinophils % 5.6 H D Basophils % 0.6 Sodium 135 L Potassium 3.4 L Chloride 98 Carbon Dioxide 28 Anion Gap 9 BUN 15 D Creatinine 1.1 H D Creat Clearance w eGFR 47.67 POC Glucometer 129 Random Glucose 140 H Lactic Acid Calcium 8.7 Total Bilirubin 2.7 H D AST 228 H D ALT 81 H D Alkaline Phosphatase 147 H D Total Protein 6.9 Albumin 3.0 L Urine Color Urine Appearance Urine pH Ur Specific [place] Urine Protein Urine Glucose (UA) Urine Ketones Urine Blood Urine Nitrite Urine Bilirubin Urine Urobilinogen Urine RBC Urine WBC Ur Epithelial Cells Urine Bacteria 01/27/17 09:21 WBC RBC Hgb Hct MCV MCH MCHC RDW Plt Count MPV Neutrophils % Lymphocytes % Monocytes % Eosinophils % Basophils % Sodium Potassium Chloride Carbon Dioxide Anion Gap BUN Creatinine Creat Clearance w eGFR POC Glucometer Random Glucose Lactic Acid 1.6 Calcium Total Bilirubin AST ALT Alkaline Phosphatase Total Protein Albumin Urine Color Urine Appearance Urine pH Ur Specific [place] Urine Protein Urine Glucose (UA) Urine Ketones Urine Blood Urine Nitrite Urine Bilirubin Urine Urobilinogen Urine RBC Urine WBC Ur Epithelial Cells Urine Bacteria Active Medications Generic Name Dose Route Start Last Admin Trade Name Freq PRN Reason Stop Dose Admin Acetaminophen 650 mg 01/26/17 20:45 01/26/17 22:10 Tylenol - PO 650 mg Q6H PRN Administration FEVER OR PAIN Amlodipine Besylate 10 mg 01/26/17 10:00 01/27/17 09:42 Norvasc - PO 10 mg DAILY LILLIAN Administration Atorvastatin Calcium 60 mg 01/26/17 22:00 01/26/17 22:09 Lipitor - PO 60 mg HS LILLIAN Administration Docusate Sodium 100 mg 01/26/17 10:00 01/27/17 09:42 Colace - PO 100 mg DAILY LILLIAN Administration Heparin Sodium (Porcine) 5,000 unit 01/26/17 06:00 01/27/17 06:06 Heparin - SQ 5,000 unit TID LILLIAN Administration Pantoprazole Sodium 40 mg/ 100 mls @ 200 mls/hr 01/26/17 10:00 01/26/17 10:32 Sodium Chloride IVPB 200 mls/hr DAILY LILLIAN Administration Insulin Aspart 1 vial 01/25/17 22:00 01/27/17 06:06 Novolog Vial Sliding Scale - SQ Not Given ACHS [facility] Protocol Levothyroxine Sodium 100 mcg 01/26/17 07:00 01/27/17 06:06 Synthroid - PO 100 mcg DAILY@0700 LILLIAN Administration Losartan Potassium 100 mg 01/26/17 10:00 01/27/17 09:41 Cozaar - PO 100 mg DAILY [facility]ILLIAN Administration Metoprolol Succinate 50 mg 01/26/17 10:00 01/26/17 09:08 Toprol Xl - PO 50 mg DAILY [facility]ILLIAN Administration Nitroglycerin 0.4 mg 01/25/17 21:26 Nitrostat - SL PRN PRN chest pain ASSESSMENT/PLAN: Patient is an 81-year-old female with significant past medical history of CAD s/ p 1 stent, hypertension, hyperlipidemia, diabetes mellitus, hypothyroidism, constipation and low back pain. She presented to the ED on 01/25/17 with left sided chest pain. On admission she described her chest pain to be located in the left side, 8/10 in intensity, non radiating, pressure type, associated with SOB, tingling and numbness of right arm and mouth. At home she took 2 Nitro SL that only relieved her pain slightly. Then she started having dizziness, blurring of vision. Her daughter then called 911. When EMS arrived, her BP was 80/40 mmHg and blood sugar was 290 mg/dl as per the daughter. She was bloused with IVF and her BP improved. On exam, she denies any further chest pain, shortness of breath or discomfort. Cardiology: Chest pain - R/O ACS - acute A/P: In ED received NS bolus for hypotension and ASA 162mg Chest pain has now resolved, tolerating room air, appears comfortable at rest Troponin x 3 negative, Continuous cardiac monitoring Echo shows LA mod dilated, mild tricuspid regurg, nodular thickening and calcification of the aortic valve w/o evidence of stenosis EKG: SR with possible left atrial enlargement, unchanged EKG when compared to EKG in 2008 Cardiology following/stress test ordered Hypertension - controlled A/P: On Losartan 100mg Daily, Metoprolol 50mg Daily, Amlodipine 10mg Daily Monitor BP Hyperlipidemia: A/P: Elevated lipid panel likely secondary to med non compliance Increased Lipitor to 60mg yesterday, Lipitor now on hold secondary to elevated ast/alt and bili GI: Elevated Ast/Alt/Bili A/P: Abdominal exam negative Lipitor d/c for elevated liver enzymes, Protonix also stopped for elevated ast/ alt (dose given this morning) Liver ultrasound now, trend liver enzymes If elevation continues, consider GI consult Fever of Unknown Origin - acute A/P: Febrile overnight: tmax 101.5F, chest xray negative, wbc within normal limits, not hypotensive, not tachycardic No signs of systemic sepsis, but will need close monitoring blood and urine cultures sent, UA with WBC 9, no signs of urinary urgency/ frequency/burning Will swab for influenza Monitor labs and cultures Endocrine: Diabetes Mellitus - chronic A/P: hmg a1c 8.5 Continue Novolog Hypothyroidism/elevated TSH A/P: Continue Levothyroxine 100 mcg TSH elevated likely secondary to home medication non compliance Will not increase home Synthroid dose as daughter confirmed that patient was not taking this medication at home Repeat TSH in 6 weeks F.E.N. Fluids: tolerating PO Nutrition: diabetic diet Electrolyte Imbalance: A/P: mild hyponatremia this morning, now resolved after 500cc bolus of NS Monitor CMP in am. Hypokalemia - now resolved A/P: Given Kdur 40meq x 1 Monitor CMP in a.m. Prophylaxis: DVT: On Hepairn 5000 IU sq GI: deferred Dispo: Patient was initially OBS but transitioned to inpatient. Full code. Visit type - Emergency Visit Emergency Visit: Yes ED Registration Date: 01/25/17 Care time: The patient presented to the Emergency Department on the above date and was hospitalized for further evaluation of their emergent condition. - New Patient This patient is new to me today: No - Critical Care Critical Care patient: No - Discharge Referral Referred to [facility] No
--- NOTE | 2017-01-27 10:20 | PN ---
Progress Note, Physician History of Present Illness: pulmonary alert,feeling better,-cp,-sob - Current Medication List Current Medications: Active Medications Acetaminophen (Tylenol -) 650 mg PO Q6H PRN PRN Reason: FEVER OR PAIN Last Admin: 01/26/17 22:10 Dose: 650 mg Amlodipine Besylate (Norvasc -) 10 mg PO DAILY [facility] Last Admin: 01/27/17 09:42 Dose: 10 mg Atorvastatin Calcium (Lipitor -) 60 mg PO HS [facility] Last Admin: 01/26/17 22:09 Dose: 60 mg Docusate Sodium (Colace -) 100 mg PO DAILY [facility] Last Admin: 01/27/17 09:42 Dose: 100 mg Heparin Sodium (Porcine) (Heparin -) 5,000 unit SQ TID [facility] Last Admin: 01/27/17 06:06 Dose: 5,000 unit Pantoprazole Sodium 40 mg/ (Sodium Chloride) 100 mls @ 200 mls/hr IVPB DAILY [facility] Last Admin: 01/26/17 10:32 Dose: 200 mls/hr Insulin Aspart (Novolog Vial Sliding Scale -) 1 vial SQ ACHS [facility] PRN Reason: Protocol Last Admin: 01/27/17 06:06 Dose: Not Given Levothyroxine Sodium (Synthroid -) 100 mcg PO DAILY@0700 [facility] Last Admin: 01/27/17 06:06 Dose: 100 mcg Losartan Potassium (Cozaar -) 100 mg PO DAILY [facility] Last Admin: 01/27/17 09:41 Dose: 100 mg Metoprolol Succinate (Toprol Xl -) 50 mg PO DAILY [facility] Last Admin: 01/26/17 09:08 Dose: 50 mg Nitroglycerin (Nitrostat -) 0.4 mg SL PRN PRN PRN Reason: chest pain - Objective Vital Signs: Vital Signs Temperature 98.2 F 01/27/17 06:00 Pulse Rate 64 01/27/17 06:00 Respiratory Rate 20 01/27/17 06:00 Blood Pressure 129/68 01/27/17 06:00 O2 Sat by Pulse Oximetry (%) 97 01/26/17 21:00 Constitutional: Yes: Well Nourished, Calm Eyes: Yes: WNL HENT: Yes: WNL Neck: Yes: WNL Cardiovascular: Yes: Regular Rate and Rhythm, S1, S2 Respiratory: Yes: CTA Bilaterally Gastrointestinal: Yes: Normal Bowel Sounds, Soft Extremities: Yes: WNL Edema: No Labs: CBC, BMP 01/27/17 05:35 INR, PTT INR 1.03 (0.82-1.09) 01/26/17 05:35 Problem List - Problems (1) Chest pain Code(s): R07.9 - CHEST PAIN, UNSPECIFIED Qualifiers: Chest pain type: unspecified Qualified Code(s): R07.9 - Chest pain, unspecified (2) ASHD (arteriosclerotic heart disease) Code(s): I25.10 - ATHSCL HEART DISEASE OF [place] CORONARY ARTERY W/O ANG PCTRS (3) HTN (hypertension) Code(s): I10 - ESSENTIAL (PRIMARY) HYPERTENSION (4) Diabetes Code(s): E11.9 - TYPE 2 DIABETES MELLITUS WITHOUT COMPLICATIONS (5) HLD (hyperlipidemia) Code(s): E78.5 - HYPERLIPIDEMIA, UNSPECIFIED (6) Hypothyroid Code(s): E03.9 - HYPOTHYROIDISM, UNSPECIFIED Assessment/Plan IMP CHEST PAIN SYNDROME R/O CARDIAC ASHD S/P STENT HTN DM HLD HYPOTHYROIDISM PLAN CARDIAC W/U IN PROGRESS O2 TOPROL ENDO EVAL DR RAPP Problem List - Problems (1) Chest pain Code(s): R07.9 - CHEST PAIN, UNSPECIFIED Qualifiers: Chest pain type: unspecified Qualified Code(s): R07.9 - Chest pain, unspecified (2) ASHD (arteriosclerotic heart disease) Code(s): I25.10 - ATHSCL HEART DISEASE OF [place] CORONARY ARTERY W/O ANG PCTRS (3) HTN (hypertension) Code(s): I10 - ESSENTIAL (PRIMARY) HYPERTENSION (4) Diabetes Code(s): E11.9 - TYPE 2 DIABETES MELLITUS WITHOUT COMPLICATIONS (5) HLD (hyperlipidemia) Code(s): E78.5 - HYPERLIPIDEMIA, UNSPECIFIED (6) Hypothyroid Code(s): E03.9 - HYPOTHYROIDISM, UNSPECIFIED
[2017-01-27 10:45] LABS: ALBUMIN 2.7 g/dl (3.4-5.0); ALK PHOS 134 U/L (45-117); ANION GAP 7 (8-16); BILIRUBIN,TOTAL 2.7 mg/dL (0.2-1.0); CO2 26 mmol/L (21-32); GLUCOSE,RANDOM 183 mg/dL (74-106); SGOT/AST 204 U/L (15-37); SGPT/ALT 77 U/L (12-78); TOT PROT 6.5 g/dl (6.4-8.2)
[2017-01-27] MEDS ORDERED: DIPYRIDAMOLE 50 MG/10 ML VIAL IVPB ONE (12:30)
--- NOTE | 2017-01-27 16:26 | CONSULT ---
Consult Consult Specialty:: Endocrinology Referred by:: Dr Knowles Reason for Consultation:: Hypothyroidism - History of Present Illness Chief Complaint: Chest Pain History of Present Illness: This is an 81 y/o female with history of CAD s/p 1 stent, Hypertension, Hyperlipidemia, Diabetes Mellitus, Hypothyroidism, constipation, low back pain who presented to the ED via EMS with complaints of Left sided chest pain which started in the morning. She took 2 Nitro which relieved her pain slightly. Then she started having dizziness, blurring of vision. Her daughter then called 911. When EMS arrived, her BP was 80/ 40 mmHg and blood sugar was 290 mg/dl as per the daughter. She was given 1 L of NS with improvement in blood pressure. Pt found to have high TSH and referred for management. Pt says she hasn't taken Synthroid for the last 3 weeks as she has been not been staying at her home. - History Source History Provided By: Patient, Medical Record Limitations to Obtaining History: Poor Historian - Past Medical History ...: No Endocrine: Yes: Diabetes Mellitus, Hypothyroidism - Alcohol/Substance Use Hx Alcohol Use: No - Smoking History Smoking history: Never smoked Have you smoked in the past 12 months: No Home Medications - Allergies Allergies/Adverse Reactions: Allergies Allergy/AdvReac Type Severity Reaction Status Date / Time No Known Allergies Allergy Verified 01/25/17 17:50 - Home Medications Home Medications: Ambulatory Orders Amlodipine Besylate [Norvasc -] 10 mg PO DAILY 01/25/17 Atorvastatin Ca [Lipitor] 40 mg PO HS 01/25/17 Docusate Sodium [Colace -] 100 mg PO DAILY 01/25/17 Doxylamine Succinate [Unisom Sleep Aid] 25 mg PO HS 01/25/17 Esomeprazole Magnesium [Nexium 24Hr] 20 mg PO DAILY 01/25/17 Levothyroxine [Synthroid -] 100 mcg PO DAILY 01/25/17 Losartan Potassium 100 mg PO DAILY 01/25/17 Metoprolol Succinate [Toprol Xl -] 50 mg PO DAILY 01/25/17 Nitroglycerin 0.4 mg SL PRN PRN 01/25/17 Sitagliptin Phos/Metformin HCl [Janumet 50-500 mg Tablet] 1 each PO DAILY Review of Systems - Review of Systems Constitutional: reports: No Symptoms Eyes: reports: No Symptoms HENT: reports: No Symptoms Neck: reports: No Symptoms Cardiovascular: reports: No Symptoms Respiratory: reports: No Symptoms Gastrointestinal: reports: No Symptoms Genitourinary: reports: No Symptoms Musculoskeletal: reports: No Symptoms Neurological: reports: No Symptoms Endocrine: reports: No Symptoms Physical Exam Vital Signs: Vital Signs Temperature 98.2 F 01/27/17 10:00 Pulse Rate 61 01/27/17 10:00 Respiratory Rate 18 01/27/17 10:00 Blood Pressure 145/67 01/27/17 10:00 O2 Sat by Pulse Oximetry (%) 97 01/26/17 21:00 Constitutional: Yes: No Distress, Calm Eyes: Yes: Conjunctiva Clear, EOM Intact HENT: Yes: Atraumatic, Normocephalic Neck: Yes: Supple, Trachea Midline Cardiovascular: Yes: Regular Rate and Rhythm Respiratory: Yes: Regular, CTA Bilaterally Gastrointestinal: Yes: Normal Bowel Sounds, Soft Musculoskeletal: Yes: WNL Extremities: Yes: WNL Edema: No Neurological: Yes: Alert, Oriented Imaging - Results Chest X-ray: Report Reviewed Ultrasound: Report Reviewed Problem List - Problems (1) ASHD (arteriosclerotic heart disease) Code(s): I25.10 - ATHSCL HEART DISEASE OF [place] CORONARY ARTERY W/O ANG PCTRS (2) Chest pain Code(s): R07.9 - CHEST PAIN, UNSPECIFIED Qualifiers: Chest pain type: unspecified Qualified Code(s): R07.9 - Chest pain, unspecified (3) Diabetes Code(s): E11.9 - TYPE 2 DIABETES MELLITUS WITHOUT COMPLICATIONS (4) HLD (hyperlipidemia) Code(s): E78.5 - HYPERLIPIDEMIA, UNSPECIFIED (5) HTN (hypertension) Code(s): I10 - ESSENTIAL (PRIMARY) HYPERTENSION (6) Hypothyroid Code(s): E03.9 - HYPOTHYROIDISM, UNSPECIFIED Assessment/Plan AP: T2DM Hypothyroidism secondary to noncompliance with medication CAD Chest Pain Choledocholithiasis BGM QACHS Novolog SS coverage Increase LT4 to 125mcg Qd for now Discussed case with pt and daughter at bedside. Explained increased perioperative complications if pt needs anesthesia or surgery as she currently has severe hypothyroidism. If emergent procedure requiring anesthesia and or surgery is necessary, will start IV thyroid hormone replacement provided stress test is normal. Will F/U
--- NOTE | 2017-01-27 16:50 | CON.GI ---
Consult Consult Specialty:: Gastroenterology Referred by:: HALEIGH Amaral Reason for Consultation:: Gallstones - History of Present Illness Chief Complaint: Chest and epigastric pain History of Present Illness: 81F is admitted for chest and epigastric pain. It is not related to exertion. It does occur after eating,. It does not radiate. No N/V. Sonogram revealed gallstones and a thickened GB wall. Sharan reports having had a fever. She has a h/o CAD with stenting and awaits the results of an EST. She does have elevations of her LFTs and reports sidra colored urine. Her TB is 2.9. She has never had an EGD or a colonoscopy. - History Source History Provided By: Patient Limitations to Obtaining History: No Limitations - Past Medical History Cardio/Vascular: Yes: CAD (with stenting), HTN, Hyperlipdemia Hepatobiliary: Yes: Cholelithiasis, Cholecystitis, Other (fatty liver) ...: No Endocrine: Yes: Diabetes Mellitus, Hypothyroidism - Past Surgical History Past Surgical History: Yes: None - Alcohol/Substance Use Hx Alcohol Use: No History of Substance Use: reports: None - Smoking History Smoking history: Never smoked Have you smoked in the past 12 months: No - Social History Usual Living Arrangement: Alone ADL: Independent Occupation: retired nurses aid Place of : Other ([employer]) Came to [place] (year[place] 22 History of Recent Travel: No Home Medications - Allergies Allergies/Adverse Reactions: Allergies Allergy/AdvReac Type Severity Reaction Status Date / Time No Known Allergies Allergy Verified 01/25/17 17:50 - Home Medications Home Medications: Ambulatory Orders Amlodipine Besylate [Norvasc -] 10 mg PO DAILY 01/25/17 Atorvastatin Ca [Lipitor] 40 mg PO HS 01/25/17 Docusate Sodium [Colace -] 100 mg PO DAILY 01/25/17 Doxylamine Succinate [Unisom Sleep Aid] 25 mg PO HS 01/25/17 Esomeprazole Magnesium [Nexium 24Hr] 20 mg PO DAILY 01/25/17 Levothyroxine [Synthroid -] 100 mcg PO DAILY 01/25/17 Losartan Potassium 100 mg PO DAILY 01/25/17 Metoprolol Succinate [Toprol Xl -] 50 mg PO DAILY 01/25/17 Nitroglycerin 0.4 mg SL PRN PRN 01/25/17 Sitagliptin Phos/Metformin HCl [Janumet 50-500 mg Tablet] 1 each PO DAILY Family Disease History - Family Disease History Family Disease History: CA: Father ( 63 of bone cancer), Mother ( 74 pancreatic cancer) Review of Systems - Review of Systems Constitutional: reports: Chills, Fever Eyes: reports: No Symptoms HENT: reports: No Symptoms Neck: reports: No Symptoms Cardiovascular: reports: Chest Pain Respiratory: reports: No Symptoms Gastrointestinal: reports: Abdominal Pain Musculoskeletal: reports: Joint Pain Physical Exam-GI Vital Signs: Vital Signs Temperature 98.2 F 01/27/17 10:00 Pulse Rate 61 01/27/17 10:00 Respiratory Rate 18 01/27/17 10:00 Blood Pressure 145/67 01/27/17 10:00 O2 Sat by Pulse Oximetry (%) 97 01/26/17 21:00 CBC,CMP WBC 5.6 K/mm3 (4.0-10.0) 01/27/17 05:35 RBC 4.28 M/mm3 (3.60-5.2) 01/27/17 05:35 Hgb 12.0 GM/dL (10.7-15.3) 01/27/17 05:35 Hct 36.4 % (32.4-45.2) 01/27/17 05:35 MCV 85.2 fl (80-96) 01/27/17 05:35 MCH 28.1 pg (25.7-33.7) 01/27/17 05:35 MCHC 33.0 g/dl (32.0-36.0) 01/27/17 05:35 RDW 14.7 % (11.6-15.6) 01/27/17 05:35 Plt Count 223 K/MM3 (134-434) 01/27/17 05:35 MPV 9.4 fl (7.5-11.1) 01/27/17 05:35 Neutrophils % 67.6 % (42.8-82.8) 01/27/17 05:35 Lymphocytes % 18.7 % (8-40) D 01/27/17 05:35 Monocytes % 7.5 % (3.8-10.2) 01/27/17 05:35 Eosinophils % 5.6 % (0-4.5) H D 01/27/17 05:35 Basophils % 0.6 % (0-2.0) 01/27/17 05:35 Sodium 136 mmol/L (136-145) 01/27/17 09:40 Potassium 4.4 mmol/L (3.5-5.1) D 01/27/17 09:40 Chloride 103 mmol/L (98-107) 01/27/17 09:40 Carbon Dioxide 26 mmol/L (21-32) 01/27/17 09:40 Anion Gap 7 (8-16) L 01/27/17 09:40 BUN 14 mg/dL (7-18) 01/27/17 09:40 Creatinine 1.0 mg/dL (0.55-1.02) 01/27/17 09:40 Creat Clearance w eGFR 53.21 (>60) 01/27/17 09:40 POC Glucometer 129 UNITS (()) 01/27/17 05:58 Random Glucose 183 mg/dL (74-106) H D 01/27/17 09:40 Hemoglobin A1c % 8.5 % (4.8-6.0) H D 01/26/17 05:35 Lactic Acid 1.6 mmol/L (0.4-2.0) 01/27/17 09:21 Calcium 8.0 mg/dL (8.5-10.1) L 01/27/17 09:40 Phosphorus 3.0 mg/dL (2.5-4.9) 01/26/17 05:35 Magnesium 1.8 mg/dL (1.8-2.4) 01/26/17 05:35 Total Bilirubin 2.7 mg/dL (0.2-1.0) H 01/27/17 09:40 AST 204 U/L (15-37) H 01/27/17 09:40 ALT 77 U/L (12-78) 01/27/17 09:40 Alkaline Phosphatase 134 U/L (45-117) H 01/27/17 09:40 Creatine Kinase 82 IU/L (26-192) 01/25/17 18:00 Troponin I < 0.02 ng/ml (0.00-0.05) 01/26/17 05:35 Total Protein 6.5 g/dl (6.4-8.2) 01/27/17 09:40 Albumin 2.7 g/dl (3.4-5.0) L 01/27/17 09:40 Triglycerides 270 mg/dL (35-160) H D 01/26/17 05:35 Cholesterol 283 mg/dL (50-200) H D 01/26/17 05:35 Total LDL Cholesterol 176 mg/dL (5-100) H 01/26/17 05:35 HDL Cholesterol 50 mg/dL (40-60) D 01/26/17 05:35 TSH 85.50 uIU/ml (0.358-3.74) H D 01/26/17 05:35 Current Medications Generic Name Dose Route Start Last Admin Trade Name Freq PRN Reason Stop Dose Admin Acetaminophen 650 mg 01/26/17 20:45 01/26/17 22:10 Tylenol - PO 650 mg Q6H PRN Administration FEVER OR PAIN Amlodipine Besylate 10 mg 01/26/17 10:00 01/27/17 09:42 Norvasc - PO 10 mg DAILY [facility] Administration Docusate Sodium 100 mg 01/26/17 10:00 01/27/17 09:42 Colace - PO 100 mg DAILY [facility] Administration Insulin Aspart 1 vial 01/25/17 22:00 01/27/17 06:06 Novolog Vial Sliding Scale - SQ Not Given ACHS [facility] Protocol Levothyroxine Sodium 125 mcg 01/28/17 07:00 Synthroid - PO DAILY@0700 [facility] Losartan Potassium 100 mg 01/26/17 10:00 01/27/17 09:41 Cozaar - PO 100 mg DAILY [facility] Administration Metoprolol Succinate 50 mg 01/26/17 10:00 01/26/17 09:08 Toprol Xl - PO 50 mg DAILY [facility] Administration Nitroglycerin 0.4 mg 01/25/17 21:26 Nitrostat - SL PRN PRN chest pain Constitutional: Yes: Calm Eyes: Yes: Sclera Icterus HENT: Yes: Normocephalic Neck: Yes: Trachea Midline Cardiovascular: Yes: Regular Rate and Rhythm Respiratory: Yes: CTA Bilaterally Gastrointestinal Inspection: Yes: WNL ...Auscultate: Yes: Normoactive Bowel Sounds ...Palpate: Yes: Soft, Other (mild right epigastric tenderness) ...Rectal Exam: Yes: Deferred (until unstable angina is excluded) Extremities: Yes: WNL Edema: No Labs: INR, PTT INR 1.03 (0.82-1.09) 01/26/17 05:35 Imaging - Results Ultrasound: Report Reviewed ( Show Printer-Friendly Version without images Patient Name: Sharan Stephens : 1935 ID: [id number] Study Date: 11:44 [facility] Name: [facility] STEPH[facility] DEPARTMENT OF RADIOLOGY Phys: Gaby Amaral NP : 1935 Age: 81 Sex: F [facility] Acct: [id number] Loc: J [address] [facility] Exam Date: 01/27/17 Status: [place] [address] Unit Number: [id number] EXAM#: TYPE/EXAM : RESULT: [id number] US/ABDOMEN US -LIMITED HISTORY PROVIDED: Elevated liver function tests. Real time examination of the abdomen demonstrates the following: The gallbladder is thick-walled with a trace amount of pericholecystic fluid. There are multiple echogenic foci within the gallbladder that are nonmobile and do not exhibit posterior shadowing. Therefore, these foci are consistent with polyps. The riveter pneumatic denies a positive Delvalle's sign. If acute cholecystitis is clinically suspected, a follow-up HIDA scan may be warranted. There is no evidence of intra or extrahepatic biliary duct dilatation. The liver is normal in size. It is slightly hyperechoic in texture suspicious for diffuse fatty infiltration. No discrete intrahepatic masses are identified. The pancreas is normal in size and texture with no pancreatic masses identified. The spleen is not enlarged. There is no evidence of hydronephrosis or acute renal abnormalities. There is no evidence of AAA. The IVC is patent. IMPRESSION: 1. Thick-walled gallbladder with pericholecystic fluid and multiple gallbladder polyps. Clinical correlation and follow-up recommended. 2. Probable mild diffuse fatty infiltration of the liver. Please see above discussion. Reported By: Clint Walsh MD 01/27/17 1253 Gaby Menendez Technologist: Cheyenne Dia Transcribed Date/Time : 01/27/17 1253 Sales Account Representative: Clint Walsh Printed Date/Time: [ rep prt dt last] [ rep prt tm last] By: [ rep prt user last] Signed by: Clint Walsh Signed on: 27-Jan-2017 12:55) Problem List - Problems (1) Cholecystitis with cholelithiasis Code(s): K80.10 - CALCULUS OF GALLBLADDER W CHRONIC CHOLECYST W/O OBSTRUCTION (2) Jaundice Code(s): R17 - UNSPECIFIED JAUNDICE Assessment/Plan I believe that Sharan's pain is due to acute cholecystitis but given bilirubin and other LFTs elevations a CBD stones needs to eb excluded. I have discussed the likely need for an ERCP. I explained the risks associated with ERCP including perforation, hemorrhage and pancreatitis leading to multisystem failure with Sharan and her daughter. She has granted an informed consent. I will pursue an MRCP to exclude a CBD stones. I will obtain blood cultures and start antibiotics to protect against ascending cholangitis and sepsis. I await the results of her EST as well. She will need cardiac clearance for the ERCP and subsequent cholecystectomy.
[2017-01-27] MEDS ORDERED: LEVOFLOXACIN 500 MG IVPB 100 ML IVPB ONE (17:15)
[2017-01-27] MEDS: METOPROLOL SUCCINATE 50 MG TAB.SR.24H (FP) PO SCH (17:22)
[2017-01-27] MEDS: METRONIDAZOLE 500 MG PREMIXED 100 ML IVPB SCH (17:48)
--- NOTE | 2017-01-27 18:20 | PN ---
Progress Note (short form) - Note Progress Note: 81 year old female admitted exertional chest pain,known case of CAD/s/p PCI/ stenting,angina pectoris,NIDDM,hypertension,poorly cotrolled and abnormal LFTS. Patient has had no further chest pain ,is normotensive.Had persantine myoview stress test that was normal. Active Medications Acetaminophen (Tylenol -) 650 mg PO Q6H PRN PRN Reason: FEVER OR PAIN Last Admin: 01/26/17 22:10 Dose: 650 mg Amlodipine Besylate (Norvasc -) 10 mg PO DAILY [facility] Last Admin: 01/27/17 09:42 Dose: 10 mg Docusate Sodium (Colace -) 100 mg PO DAILY [facility] Last Admin: 01/27/17 09:42 Dose: 100 mg Metronidazole (Flagyl 500mg Premixed Ivpb -) 100 mls @ 100 mls/hr IVPB Q8H-IV [facility] Last Admin: 01/27/17 17:48 Dose: 100 mls/hr Insulin Aspart (Novolog Vial Sliding Scale -) 1 vial SQ ACHS [facility] PRN Reason: Protocol Last Admin: 01/27/17 17:32 Dose: 4 units Levothyroxine Sodium (Synthroid -) 125 mcg PO DAILY@0700 [facility] Losartan Potassium (Cozaar -) 100 mg PO DAILY [facility] Last Admin: 01/27/17 09:41 Dose: 100 mg Metoprolol Succinate (Toprol Xl -) 50 mg PO DAILY [facility] Last Admin: 01/27/17 17:22 Dose: 50 mg Nitroglycerin (Nitrostat -) 0.4 mg SL PRN PRN PRN Reason: chest pain Pt. is in no distress,no pallor or cyanosis. Vital Signs Temperature 98.2 F 01/27/17 10:00 Pulse Rate 61 01/27/17 10:00 Respiratory Rate 18 01/27/17 10:00 Blood Pressure 145/67 01/27/17 10:00 O2 Sat by Pulse Oximetry (%) 97 01/26/17 21:00 NECK:Supple,noJVD,carotids 2+ upstrokes were normal,no bruits were heard , no thyromegaly. HEART:PMI in the 5th ICS,no heaves or thrills,S1& S2 were normal,JESSIKA II/ at the 2nd Rt.ICS,grade II/ descrescendo systolic murmur at the apex.No diastolic murmur or gallops heard. LUNGS:Clear on auscultation. ADBDOMEN:Soft,nontender,no organomegaly or palpable masses. EXTREMITIES:No calf tenderness or dependent edema. LAB DATA:Dipyridamole myoview stress test:No ischemia was detected.(detailed report to follow). Impression: 1.CAD,s/p PCI/Stenting,angina pectoris. 2.NIDDM. 3.Hypertension,poorly controlled. 4.Hypercholestrolemia. 5.Aortic valvular disease. 6.Poor compliance. 7.Abdominal pain,etiology is to be determined. Recommendations: 1.Continue current therapy. 2.Workup for abdominal pain in progress. 3.Counceled regarding diet and takinf her medications as prescribed
[2017-01-28] MEDS: METRONIDAZOLE 500 MG PREMIXED 100 ML IVPB SCH ×3 (01:31→17:52)
[2017-01-28] MEDS: LEVOTHYROXINE NA 125 MCG TABLET (FP) PO SCH (06:01)
[2017-01-28] MEDS: INSULIN SLIDING SCALE (NOVOLOG) 1 VIAL SQ SCH ×4 (06:01→23:09)
[2017-01-28 08:06] LABS: BASOPHIL 0.7 % (0-2.0); EOSINOPHIL 8.7 % (0-4.5); MCH 28.3 pg (25.7-33.7); MCHC 32.9 g/dl (32.0-36.0); MEAN CELL VOLUME 86.1 fl (80-96); MEAN PLT VOLUME 8.9 fl (7.5-11.1); NEUTROPHILS 61.2 % (42.8-82.8); PLATELET COUNT 222 K/MM3 (134-434); RDW 14.7 % (11.6-15.6)
[2017-01-28 08:20] LABS: BILIRUBIN,DIRECT 1.5 mg/dL (0.0-0.2)
[2017-01-28 08:23] LABS: BILIRUBIN,DIRECT 1.7 mg/dL (0.0-0.2)
[2017-01-28 08:53] LABS: ANION GAP 11 (8-16); CALCIUM 8.7 mg/dL (8.5-10.1); CO2 25 mmol/L (21-32); GLUCOSE,RANDOM 143 mg/dL (74-106)
[2017-01-28 08:56] LABS: ALK PHOS 154 U/L (45-117); BILIRUBIN,TOTAL 3.1 mg/dL (0.2-1.0); SGOT/AST 126 U/L (15-37); SGPT/ALT 58 U/L (12-78); TOT PROT 7.1 g/dl (6.4-8.2)
[2017-01-28 09:04] LABS: BILIRUBIN,DIRECT 2.4 mg/dL (0.0-0.2); C-REACTIVE PROTEIN 3.8 MG/DL (0.00-0.3)
--- NOTE | 2017-01-28 09:35 | PN ---
Progress Note (short form) - Note Progress Note: GI NOte: MRCP reveals that the stone has passes so will defer ERCP. Elevated bilirubin may reflect the cholecystitis. Advise proceeding with cholecystectomy if cardiologically cleared. Problem List - Problems (1) Cholecystitis with cholelithiasis Code(s): K80.10 - CALCULUS OF GALLBLADDER W CHRONIC CHOLECYST W/O OBSTRUCTION (2) Jaundice Code(s): R17 - UNSPECIFIED JAUNDICE
[2017-01-28] MEDS: LOSARTAN POTASSIUM 50 MG TABLET (FP) PO SCH (09:43)
[2017-01-28] MEDS: DOCUSATE SODIUM 100 MG CAPSULE (FP) PO SCH (09:44)
[2017-01-28] MEDS: amLODIPine BESYLATE 10 MG TABLET (FP) PO SCH (09:44)
[2017-01-28] MEDS: METOPROLOL SUCCINATE 50 MG TAB.SR.24H (FP) PO SCH (09:44)
[2017-01-28] MEDS: LEVOFLOXACIN 500 MG IVPB 100 ML IVPB SCH (09:45)
--- NOTE | 2017-01-28 11:45 | PN ---
Physical Exam: SUBJECTIVE: Patient seen and examined she feels "clear" now. Denies cp, abd pain , nausea, vomiting. daughter at bedside. OBJECTIVE: Vital Signs Period Temp Pulse Resp BP Sys/Patel Pulse Ox Last 24 Hr 98.3 F-98.5 F 67-78 18-18 123-153/52-96 98 PE Neuro: alert, awake, cn 2-12intact Pulm: L base rhonci, R clear CV: s1 s2 rrr 3/6 systolic murmur Abd: no RUQ or pain, s nt nd +bs Ext: warm, no le edema CBCD WBC 4.0 K/mm3 (4.0-10.0) 01/28/17 05:46 RBC 4.36 M/mm3 (3.60-5.2) 01/28/17 05:46 Hgb 12.4 GM/dL (10.7-15.3) 01/28/17 05:46 Hct 37.6 % (32.4-45.2) 01/28/17 05:46 MCV 86.1 fl (80-96) 01/28/17 05:46 MCHC 32.9 g/dl (32.0-36.0) 01/28/17 05:46 RDW 14.7 % (11.6-15.6) 01/28/17 05:46 Plt Count 222 K/MM3 (134-434) 01/28/17 05:46 MPV 8.9 fl (7.5-11.1) 01/28/17 05:46 CMP Sodium 140 mmol/L (136-145) 01/28/17 05:46 Potassium 3.9 mmol/L (3.5-5.1) 01/28/17 05:46 Chloride 104 mmol/L (98-107) 01/28/17 05:46 Carbon Dioxide 25 mmol/L (21-32) 01/28/17 05:46 Anion Gap 11 (8-16) 01/28/17 05:46 BUN 13 mg/dL (7-18) 01/28/17 05:46 Creatinine 1.0 mg/dL (0.55-1.02) 01/28/17 05:46 Creat Clearance w eGFR 53.21 (>60) 01/28/17 05:46 Calcium 8.7 mg/dL (8.5-10.1) 01/28/17 05:46 Total Bilirubin 3.1 mg/dL (0.2-1.0) H 01/28/17 05:46 AST 126 U/L (15-37) H D 01/28/17 05:46 ALT 58 U/L (12-78) D 01/28/17 05:46 Alkaline Phosphatase 154 U/L (45-117) H 01/28/17 05:46 Total Protein 7.1 g/dl (6.4-8.2) 01/28/17 05:46 Albumin 3.0 g/dl (3.4-5.0) L 01/28/17 05:46 01/26/17 01/28/17 01/28/17 05:35 05:46 05:46 Total Bilirubin 3.1 H Direct Bilirubin C-Reactive Protein Total Amylase TSH 85.50 H D Pending Free T4 0.82 D 01/28/17 05:46 Total Bilirubin Direct Bilirubin 2.4 H D C-Reactive Protein 3.8 H Total Amylase 60 TSH Free T4 Active Medications Generic Name Dose Route Start Last Admin Trade Name Freq PRN Reason Stop Dose Admin Acetaminophen 650 mg 01/26/17 20:45 01/26/17 22:10 Tylenol - PO 650 mg Q6H PRN Administration FEVER OR PAIN Amlodipine Besylate 10 mg 01/26/17 10:00 01/28/17 09:44 Norvasc - PO 10 mg DAILY [facility] Administration Docusate Sodium 100 mg 01/26/17 10:00 01/28/17 09:44 Colace - PO 100 mg DAILY [facility] Administration Metronidazole 100 mls @ 100 mls/hr 01/27/17 18:00 01/28/17 09:37 Flagyl 500mg Premixed Ivpb - IVPB 100 mls/hr Q8H-IV [facility] Administration Levofloxacin 100 mls @ 100 mls/hr 01/28/17 10:00 01/28/17 09:45 Levaquin 500 Mg Premixed Ivpb - IVPB 100 mls/hr DAILY [facility] Administration Insulin Aspart 1 vial 01/28/17 07:00 01/28/17 06:01 Novolog Vial Sliding Scale - SQ Not Given TIDAC [facility] Protocol Insulin Aspart 1 vial 01/27/17 22:00 01/27/17 21:17 Novolog Vial Sliding Scale - SQ Not Given HS [facility] Protocol Levothyroxine Sodium 125 mcg 01/28/17 07:00 01/28/17 06:01 Synthroid - PO Not Given DAILY@0700 [facility] Losartan Potassium 100 mg 01/26/17 10:00 01/28/17 09:43 Cozaar - PO 100 mg DAILY [facility] Administration Metoprolol Succinate 50 mg 01/26/17 10:00 01/28/17 09:44 Toprol Xl - PO 50 mg DAILY [facility] Administration Nitroglycerin 0.4 mg 01/25/17 21:26 Nitrostat - SL PRN PRN chest pain Imaging: ECHO: LA mod dilated, mild tricuspid regurg, nodular thickening and calcification of the aortic valve w/o evidence of stenosis Assessment: 81 year old female with pmhx CAD s/p stent 5 years ago, HTN, HLD, DM II, hypothyroidism, admitted with chest pain, sob, and numbness and RUE tingling. Plan: 1. Acute choleycystitis - MRCP shows passed stone, no ERCP - Will need cholecystectomy, however due to elevates TSH levels, unless emergent would hold off on surgery until levels decreased in 4 weeks per d/w endocrine - Continue levaquin (day 2) - Continue flagyl (day 2) - Will discuss with Dr. Hermosillo, as has been cleared by cardiology - Surgery Consulted 2. Chest Pain - ACS ruled out - Continue ASA - Stress test negative for ischemia - Likely due to elevated blood pressure 3. HTN - BP stable currently - Losartan 100mg qday - Toprol xl 50mg qday - Amlodipine 10mg qday 4. HLD - Lipid panel noted - Increase lipitor 80mg HS once LFT's improved 5. DM II - ISS, BGM - Hgb a1c 8.5 - PO meds on hold 6. Hypothyroidism - Increased Synthroid 125mcg daily - T4 wnl indicating subclinical hypothyroid - Awaiting TSH level from today Visit type - Emergency Visit Emergency Visit: Yes ED Registration Date: 01/27/17 Care time: The patient presented to the Emergency Department on the above date and was hospitalized for further evaluation of their emergent condition. - New Patient This patient is new to me today: Yes Date on this admission: 01/28/17 - Critical Care Critical Care patient: No
--- NOTE | 2017-01-28 12:14 | PN ---
Progress Note, Physician History of Present Illness: pulmonary alert,nad,-cp,-sob - Current Medication List Current Medications: Active Medications Acetaminophen (Tylenol -) 650 mg PO Q6H PRN PRN Reason: FEVER OR PAIN Last Admin: 01/26/17 22:10 Dose: 650 mg Amlodipine Besylate (Norvasc -) 10 mg PO DAILY [facility] Last Admin: 01/28/17 09:44 Dose: 10 mg Docusate Sodium (Colace -) 100 mg PO DAILY [facility] Last Admin: 01/28/17 09:44 Dose: 100 mg Metronidazole (Flagyl 500mg Premixed Ivpb -) 100 mls @ 100 mls/hr IVPB Q8H-IV [facility] Last Admin: 01/28/17 09:37 Dose: 100 mls/hr Levofloxacin (Levaquin 500 Mg Premixed Ivpb -) 100 mls @ 100 mls/hr IVPB DAILY [facility] Last Admin: 01/28/17 09:45 Dose: 100 mls/hr Insulin Aspart (Novolog Vial Sliding Scale -) 1 vial SQ TIDAC [facility] PRN Reason: Protocol Last Admin: 01/28/17 06:01 Dose: Not Given Insulin Aspart (Novolog Vial Sliding Scale -) 1 vial SQ HS [facility] PRN Reason: Protocol Last Admin: 01/27/17 21:17 Dose: Not Given Levothyroxine Sodium (Synthroid -) 125 mcg PO DAILY@0700 [facility] Last Admin: 01/28/17 06:01 Dose: Not Given Losartan Potassium (Cozaar -) 100 mg PO DAILY [facility] Last Admin: 01/28/17 09:43 Dose: 100 mg Metoprolol Succinate (Toprol Xl -) 50 mg PO DAILY [facility] Last Admin: 01/28/17 09:44 Dose: 50 mg Nitroglycerin (Nitrostat -) 0.4 mg SL PRN PRN PRN Reason: chest pain - Objective Vital Signs: Vital Signs Temperature 98.5 F 01/28/17 06:00 Pulse Rate 67 01/28/17 06:00 Respiratory Rate 18 01/28/17 06:00 Blood Pressure 123/59 01/28/17 06:00 O2 Sat by Pulse Oximetry (%) 98 01/27/17 21:00 Constitutional: Yes: Well Nourished, Calm Eyes: Yes: WNL HENT: Yes: WNL Neck: Yes: WNL Cardiovascular: Yes: Regular Rate and Rhythm, S1, S2 Respiratory: Yes: CTA Bilaterally Gastrointestinal: Yes: Normal Bowel Sounds, Soft Extremities: Yes: WNL Edema: No Labs: CBC, BMP 01/28/17 05:46 01/28/17 05:46 INR, PTT INR 1.03 (0.82-1.09) 01/26/17 05:35 - ....Imaging MRI: Report Reviewed Problem List - Problems (1) Chest pain Code(s): R07.9 - CHEST PAIN, UNSPECIFIED Qualifiers: Qualified Code(s): R07.9 - Chest pain, unspecified (2) ASHD (arteriosclerotic heart disease) Code(s): I25.10 - ATHSCL HEART DISEASE OF [place] CORONARY ARTERY W/O ANG PCTRS (3) HTN (hypertension) Code(s): I10 - ESSENTIAL (PRIMARY) HYPERTENSION (4) Diabetes Code(s): E11.9 - TYPE 2 DIABETES MELLITUS WITHOUT COMPLICATIONS (5) HLD (hyperlipidemia) Code(s): E78.5 - HYPERLIPIDEMIA, UNSPECIFIED (6) Hypothyroid Code(s): E03.9 - HYPOTHYROIDISM, UNSPECIFIED Assessment/Plan IMP ACUTE CHOLECYSTITIS CHEST PAIN SYNDROME Resolved ASHD S/P STENT HTN DM HLD HYPOTHYROIDISM PLAN O2 TOPROL MONITOR LFTS SURGERY CONSULT DR GUME RAPP Problem List - Problems (1) Chest pain Code(s): R07.9 - CHEST PAIN, UNSPECIFIED Qualifiers: Chest pain type: unspecified Qualified Code(s): R07.9 - Chest pain, unspecified (2) ASHD (arteriosclerotic heart disease) Code(s): I25.10 - ATHSCL HEART DISEASE OF [place] CORONARY ARTERY W/O ANG PCTRS (3) HTN (hypertension) Code(s): I10 - ESSENTIAL (PRIMARY) HYPERTENSION (4) Diabetes Code(s): E11.9 - TYPE 2 DIABETES MELLITUS WITHOUT COMPLICATIONS (5) HLD (hyperlipidemia) Code(s): E78.5 - HYPERLIPIDEMIA, UNSPECIFIED (6) Hypothyroid Code(s): E03.9 - HYPOTHYROIDISM, UNSPECIFIED
--- NOTE | 2017-01-28 18:17 | PN ---
Progress Note (short form) - Note Progress Note: 81 year old female with H/O CaD,PCI/Stenting,hypertension,NIDDM,abdominal pain,h /o severe hypothyroidism,diagnosed to have GB disease. No chest pain or discomfort,no SUAREZ,PND or orthopnea, no further abdominal discomfort.Patient is being considered for cholecystectomy. Active Medications Acetaminophen (Tylenol -) 650 mg PO Q6H PRN PRN Reason: FEVER OR PAIN Last Admin: 01/26/17 22:10 Dose: 650 mg Amlodipine Besylate (Norvasc -) 10 mg PO DAILY [facility] Last Admin: 01/28/17 09:44 Dose: 10 mg Docusate Sodium (Colace -) 100 mg PO DAILY [facility] Last Admin: 01/28/17 09:44 Dose: 100 mg Metronidazole (Flagyl 500mg Premixed Ivpb -) 100 mls @ 100 mls/hr IVPB Q8H-IV [facility] Last Admin: 01/28/17 17:52 Dose: 100 mls/hr Levofloxacin (Levaquin 500 Mg Premixed Ivpb -) 100 mls @ 100 mls/hr IVPB DAILY [facility] Last Admin: 01/28/17 09:45 Dose: 100 mls/hr Insulin Aspart (Novolog Vial Sliding Scale -) 1 vial SQ TIDAC [facility] PRN Reason: Protocol Last Admin: 01/28/17 17:39 Dose: Not Given Insulin Aspart (Novolog Vial Sliding Scale -) 1 vial SQ HS [facility] PRN Reason: Protocol Last Admin: 01/27/17 21:17 Dose: Not Given Levothyroxine Sodium (Synthroid -) 125 mcg PO DAILY@0700 [facility] Last Admin: 01/28/17 06:01 Dose: Not Given Losartan Potassium (Cozaar -) 100 mg PO DAILY [facility] Last Admin: 01/28/17 09:43 Dose: 100 mg Metoprolol Succinate (Toprol Xl -) 50 mg PO DAILY [facility] Last Admin: 01/28/17 09:44 Dose: 50 mg Nitroglycerin (Nitrostat -) 0.4 mg SL PRN PRN PRN Reason: chest pain 81 year old female in no distress, no pallor,cyanosis,clubbing or jaundice. Vital Signs 01/28/17 01/28/17 14:45 18:00 Temperature 97.9 F 98.6 F Pulse Rate 69 74 Respiratory 18 Rate Blood Pressure 155/66 139/87 NECK:Supple,noJVD,carotids equal,no bruits or thyromegaly. HEART:PMI in the 5th ICS,JESSIKA II/ 2nd right ICS,ending in early systole and II/ decrescendo systolic murmur at the apex.No diastolic murmur or gallops. LUNGS:Clear on auscultation. EXTERMITIES:NO pedal edema or calf tenderness. CBC, BMP 01/28/17 05:46 01/28/17 05:46 IMPRESSION: 1.CAD,anginapectoris,S/P PCI/Stenting 2.NIDDM. 3.Hypertension/HCVD. 4.Cholecystitis, Recommendation 1.Continue current therapy. 2.If surgery is being contemplated, there appears to be no absolute contraindication to the surgical procedure. 3.F/U CBC and CMP.
[2017-01-29] MEDS: METRONIDAZOLE 500 MG PREMIXED 100 ML IVPB SCH ×3 (03:20→18:05)
[2017-01-29] MEDS: LEVOTHYROXINE NA 125 MCG TABLET (FP) PO SCH (06:11)
[2017-01-29 08:03] LABS: BASOPHIL 0.8 % (0-2.0); EOSINOPHIL 8.6 % (0-4.5); MCH 28.4 pg (25.7-33.7); MCHC 32.7 g/dl (32.0-36.0); MEAN CELL VOLUME 86.8 fl (80-96); MEAN PLT VOLUME 8.8 fl (7.5-11.1); NEUTROPHILS 45.3 % (42.8-82.8); PLATELET COUNT 267 K/MM3 (134-434); RDW 14.8 % (11.6-15.6); WHITE BLOOD COUNT 6.3 K/mm3 (4.0-10.0)
[2017-01-29 08:31] LABS: ALBUMIN 3.3 g/dl (3.4-5.0); ANION GAP 9 (8-16); BILIRUBIN,DIRECT 1.5 mg/dL (0.0-0.2); CALCIUM 9.3 mg/dL (8.5-10.1); CO2 25 mmol/L (21-32); CREATININE 1.2 mg/dL (0.55-1.02); SGOT/AST 102 U/L (15-37); SGPT/ALT 54 U/L (12-78); TOT PROT 7.8 g/dl (6.4-8.2)
[2017-01-29 08:37] LABS: ALK PHOS 192 U/L (45-117); AMYLASE 72 U/L (25-115); BILIRUBIN,TOTAL 1.9 mg/dL (0.2-1.0); GLUCOSE,RANDOM 147 mg/dL (74-106)
--- NOTE | 2017-01-29 09:11 | PN ---
Progress Note (short form) - Note Progress Note: Denies any complaints Vital Signs Period Temp Pulse Resp BP Sys/Patel Pulse Ox Last 24 Hr 97.9 F-98.6 F 69-74 18-20 133-155/57-87 98 PE: AOx3 Neck: Supple, No JVD HEENT: PERRL, EOMI Lungs: CTA CVS: S1S2 Abd: Benign EXt: No Edema Neuro: No focal deficit CMP Sodium 138 mmol/L (136-145) 01/29/17 05:47 Potassium 3.8 mmol/L (3.5-5.1) 01/29/17 05:47 Chloride 104 mmol/L (98-107) 01/29/17 05:47 Carbon Dioxide 25 mmol/L (21-32) 01/29/17 05:47 Anion Gap 9 (8-16) 01/29/17 05:47 BUN 10 mg/dL (7-18) D 01/29/17 05:47 Creatinine 1.2 mg/dL (0.55-1.02) H 01/29/17 05:47 Creat Clearance w eGFR 43.12 (>60) 01/29/17 05:47 POC Glucometer 136 UNITS (()) 01/29/17 06:11 Random Glucose 147 mg/dL (74-106) H 01/29/17 05:47 Hemoglobin A1c % 8.5 % (4.8-6.0) H D 01/26/17 05:35 Lactic Acid 1.6 mmol/L (0.4-2.0) 01/27/17 09:21 Calcium 9.3 mg/dL (8.5-10.1) 01/29/17 05:47 Phosphorus 3.0 mg/dL (2.5-4.9) 01/26/17 05:35 Magnesium 1.8 mg/dL (1.8-2.4) 01/26/17 05:35 Total Bilirubin 1.9 mg/dL (0.2-1.0) H D 01/29/17 05:47 Direct Bilirubin 1.5 mg/dL (0.0-0.2) H D 01/29/17 05:47 AST 102 U/L (15-37) H 01/29/17 05:47 ALT 54 U/L (12-78) 01/29/17 05:47 Alkaline Phosphatase 192 U/L (45-117) H D 01/29/17 05:47 Creatine Kinase 82 IU/L (26-192) 01/25/17 18:00 Troponin I < 0.02 ng/ml (0.00-0.05) 01/26/17 05:35 C-Reactive Protein 2.0 MG/DL (0.00-0.3) H D 01/29/17 05:47 Total Protein 7.8 g/dl (6.4-8.2) 01/29/17 05:47 Albumin 3.3 g/dl (3.4-5.0) L 01/29/17 05:47 Triglycerides 270 mg/dL (35-160) H D 01/26/17 05:35 Cholesterol 283 mg/dL (50-200) H D 01/26/17 05:35 Total LDL Cholesterol 176 mg/dL (5-100) H 01/26/17 05:35 HDL Cholesterol 50 mg/dL (40-60) D 01/26/17 05:35 Total Amylase 72 U/L (25-115) 01/29/17 05:47 Lipase 420 U/L (73-393) H 01/29/17 05:47 TSH 52.60 uIU/ml (0.358-3.74) H D 01/28/17 05:46 Free T4 0.82 ng/dl (0.76-1.46) D 01/28/17 05:46 Current Medications Generic Name Dose Route Start Last Admin Trade Name Freq PRN Reason Stop Dose Admin Acetaminophen 650 mg 01/26/17 20:45 01/26/17 22:10 Tylenol - PO 650 mg Q6H PRN Administration FEVER OR PAIN Amlodipine Besylate 10 mg 01/26/17 10:00 01/28/17 09:44 Norvasc - PO 10 mg DAILY [facility]IAN Administration Docusate Sodium 100 mg 01/26/17 10:00 01/28/17 09:44 Colace - PO 100 mg DAILY [facility] Administration Metronidazole 100 mls @ 100 mls/hr 01/27/17 18:00 01/29/17 03:20 Flagyl 500mg Premixed Ivpb - IVPB 100 mls/hr Q8H-IV [facility]IAN Administration Levofloxacin 100 mls @ 100 mls/hr 01/28/17 10:00 01/28/17 09:45 Levaquin 500 Mg Premixed Ivpb - IVPB 100 mls/hr DAILY [facility] Administration Insulin Aspart 1 vial 01/28/17 07:00 01/28/17 17:39 Novolog Vial Sliding Scale - SQ Not Given TIDAC [facility] Protocol Insulin Aspart 1 vial 01/27/17 22:00 01/28/17 23:09 Novolog Vial Sliding Scale - SQ Not Given HS [facility] Protocol Levothyroxine Sodium 125 mcg 01/28/17 07:00 01/29/17 06:11 Synthroid - PO 125 mcg DAILY@0700 [facility] Administration Losartan Potassium 100 mg 01/26/17 10:00 01/28/17 09:43 Cozaar - PO 100 mg DAILY [facility] Administration Metoprolol Succinate 50 mg 01/26/17 10:00 01/28/17 09:44 Toprol Xl - PO 50 mg DAILY [facility] Administration Nitroglycerin 0.4 mg 01/25/17 21:26 Nitrostat - SL PRN PRN chest pain AP: T2DM HYpothyroidism Cholelithiasis HTN Improving LFTs Improving TFT Continue LT4 125 If pt needs urgent procedure, she may go for it. Increased perioperative risks because of uncorrected hypothyroidism discussed with pt and daughter again today. Problem List - Problems (1) ASHD (arteriosclerotic heart disease) Code(s): I25.10 - ATHSCL HEART DISEASE OF [place] CORONARY ARTERY W/O ANG PCTRS (2) Chest pain Code(s): R07.9 - CHEST PAIN, UNSPECIFIED Qualifiers: Chest pain type: unspecified Qualified Code(s): R07.9 - Chest pain, unspecified (3) Diabetes Code(s): E11.9 - TYPE 2 DIABETES MELLITUS WITHOUT COMPLICATIONS (4) HLD (hyperlipidemia) Code(s): E78.5 - HYPERLIPIDEMIA, UNSPECIFIED (5) HTN (hypertension) Code(s): I10 - ESSENTIAL (PRIMARY) HYPERTENSION (6) Hypothyroid Code(s): E03.9 - HYPOTHYROIDISM, UNSPECIFIED
[2017-01-29] MEDS: INSULIN SLIDING SCALE (NOVOLOG) 1 VIAL SQ SCH ×3 (09:32→17:36)
[2017-01-29] MEDS: DOCUSATE SODIUM 100 MG CAPSULE (FP) PO SCH (09:33)
[2017-01-29] MEDS: LOSARTAN POTASSIUM 50 MG TABLET (FP) PO SCH (09:34)
[2017-01-29] MEDS: METOPROLOL SUCCINATE 50 MG TAB.SR.24H (FP) PO SCH (09:38)
[2017-01-29] MEDS: amLODIPine BESYLATE 10 MG TABLET (FP) PO SCH (09:38)
[2017-01-29] MEDS: LEVOFLOXACIN 500 MG IVPB 100 ML IVPB SCH (09:38)
[2017-01-29] MEDS ORDERED: MIDAZOLAM HCL 2 MG/2 ML SINGLE DOSE VIAL ONE (09:47)
[2017-01-29] MEDS ORDERED: ROCURONIUM BROMIDE 50 MG/5 ML VIAL ONE (09:47)
[2017-01-29] MEDS ORDERED: DEXAMETHASONE SOD PHOSPHATE 4 MG/1 ML VIAL ONE (09:47)
--- NOTE | 2017-01-29 11:00 | CONS ---
SURGICAL CONSULTATION DATE OF CONSULTATION: 01/28/2017 REFERRING PHYSICIAN: Jesus Knowles MD REASON FOR REFERRAL: Cholecystitis. BRIEF HISTORY: This is an 81-year-old female admitted with epigastric and chest pain. It was thought that her pain was not cardiac related but related to her gallbladder. She underwent an ultrasound of the abdomen, that demonstrated gallbladder wall to be thickened with a trace amount of pericholecystic fluid. There were multiple echogenic foci within the gallbladder, but they were non-mobile and did not exhibit posterior shadowing. Therefore, they were thought to be polyps. There were no obvious stones identified in the gallbladder. The patient also had a negative sonographic Delvalle's. In any event, given her blood work and her presentation, it was thought that she had calculous cholecystitis, and she was being ruled out for a CBD stone. She underwent an MRCP. The MRCP demonstrated no evidence of a CBD stone, and it was thought by GI that the patient had passed a stone. At this point, I have been asked to see this patient for consideration of a cholecystectomy. At the time of admission, the patient had a bilirubin of 2.7, and today's repeat is 3.1. Her initial AST was 204, and today is 126. At the time of admission, her alkaline phosphatase was 134. However, today, it is 154. PAST MEDICAL HISTORY: Significant for coronary artery disease status post stent, hypertension, hyperlipidemia, fatty liver, diabetes. PAST SURGICAL HISTORY: None. MEDICATIONS: Amlodipine, atorvastatin, Nexium, Synthroid, losartan, metoprolol, metformin. ALLERGIES: None. SOCIAL HISTORY: Patient denies tobacco and alcohol use. PHYSICAL EXAMINATION: HEENT: There is no obvious icterus. Abdomen: Soft. It is nontender, nondistended. No peritoneal findings. IMPRESSION/PLAN: History of right upper quadrant abdominal pain, epigastric pain, cholecystitis. This is an 81-year-old female admitted with upper abdominal pain that was thought to be related to her gallbladder. The ultrasound demonstrated no gallstones but multiple gallbladder polyps. The LFTs at the time of admission are more consistent with cholelithiasis and acute cholecystitis and a possible CBD stone. She underwent an MRCP that demonstrated no evidence of a stone, and it has been recommended that she undergo a laparoscopic cholecystectomy. It is thought at this time that the patient has passed a stone, and I would be happy to perform a laparoscopic cholecystectomy. However, the bilirubin has trended in the wrong direction. It is 3.1, and at the time of admission, it had been 2.7. Her alkaline phosphatase, which has also been elevated at the time of admission, however, is trending in the wrong direction and has become more elevated at 154. This may be related to her just passing the stone. However, a floating CBD stone cannot be entirely excluded, and therefore, I would hold on performing a laparoscopic cholecystectomy at this time until her LFTs are repeated and it demonstrates that the bilirubin as well as the alkaline phosphatase trend in the normalizing direction. We will continue to follow this patient. Thank you for allowing me to participate in the care of your patient. ELADIO DUNAWAY M.D. [id number] cc: MD Calvin Rodriguez MD Alysha Koorji, [facility] Titi Robert MD
[2017-01-29] MEDS ORDERED: NEOSTIGMINE METHYLSULFATE 0.5 MG/ML - 10 ML MDV ONE (11:30)
[2017-01-29] MEDS ORDERED: GLYCOPYRROLATE 0.2 MG/1 ML VIAL ONE (11:31)
[2017-01-29] MEDS ORDERED: ONDANSETRON 4 MG/2 ML VIAL IVPUSH PRN ×2 (12:03→12:54)
[2017-01-29] MEDS ORDERED: LACTATED RINGERS SOLUTION 1,000 ML IV SCH ×2 (12:15→12:54)
[2017-01-29] MEDS ORDERED: ACETAMINOPHEN 325 MG TABLET (FP) PO PRN ×2 (12:54→14:29)
[2017-01-29] MEDS ORDERED: NITROGLYCERIN SUBLINGUAL 1/150 0.4 MG TAB SL PRN (12:54)
--- NOTE | 2017-01-29 13:40 | OP ---
DATE OF OPERATION: 01/29/2017 PREOPERATIVE DIAGNOSIS: Acute cholecystitis. POSTOPERATIVE DIAGNOSIS: Acute cholecystitis. PROCEDURE PERFORMED: Laparoscopic cholecystectomy, peritoneal lavage. SURGEON: Marcel Harry M.D. ADMINISTRATIVE SUPPORT CLERK: None. ANESTHESIA: General. ANESTHESIOLOGIST: Timi Mesa M.D. ESTIMATED BLOOD LOSS: Minimal. SPECIMEN: Gallbladder. INDICATIONS FOR PROCEDURE: This is an 81-year-old female admitted to the hospital with epigastric and chest pain thought to be related to a biliary cause. Workup consistent with findings of acute cholecystitis, with thickened gallbladder wall, and pericholecystic fluid. The ultrasound demonstrated no obvious stones. However, the patient's clinical presentation and laboratory data suggest calculus cholecystitis with elevated bilirubin, alkaline phosphatase and AST. The trend over the next several days demonstrated the bilirubin as well as AST to trend down. However, the alkaline phosphatase remained mildly elevated, which would possibly suggest a floating stone versus catching the alkaline phosphatase on the up-trend and not prior to the down-trend. In any event, the patient is here today for a laparoscopic cholecystectomy. DESCRIPTION OF PROCEDURE: The patient was identified and appropriately positioned on the operating room table. After the placement of anesthesia, the abdomen was prepped and draped in the usual sterile fashion with ChloraPrep. An infraumbilical incision was made and deepened through the subcutaneous tissue. The fascia was divided sharply. The peritoneum was incised under direct vision. The structural needle was placed. Also under direct vision, the remaining 3 ports placed. The gallbladder was identified in the right upper quadrant. There was omentum that was plastered to the body and surrounding liver. The omentum was with blunt and sharp dissection as needed. The gallbladder was thick-walled and had changes consistent with acute cholecystitis. The gallbladder was reflected over the dome of the liver in standard fashion. Going from lateral to medial, the neck and infundibulum of the gallbladder were identified, followed by the cystic duct. Due to the possibility of the alkaline phosphatase being elevated secondary to a floating stone, the cystic duct was subsequently stapled and not clipped. An Endo [place] 2.5-mm stapler was used. The artery itself was clipped and then divided. The gallbladder itself was removed from the liver bed with electrocautery. Prior to complete removal, the liver was irrigated. The operative field was examined and noted to be hemostatic. The specimen was brought out through the umbilical port site. All ports were removed under direct vision. The port sites were hemostatic. The fascia at the umbilical port site was reapproximated with interrupted 0 Vicryl suture. All skin was closed with 4-0 subcuticular Biosyn followed by Dermabond. At the conclusion of the case, sponge and instrument counts were correct. ATTESTATION: Brief operative note handwritten on the preprinted form. Sharon FRAGOSO [id number]
[2017-01-29] MEDS ORDERED: morphine CARPU-JECT 2 MG/1 ML DISP.SYRIN IVPUSH PRN (14:30)
[2017-01-29] MEDS ORDERED: traMADol HCL 50 MG TABLET PO PRN (15:15)
--- NOTE | 2017-01-29 16:57 | PN ---
Physical Exam: SUBJECTIVE: Patient seen and examined after surgery. She is doing well, some pain reported OBJECTIVE: Vital Signs Period Temp Pulse Resp BP Sys/Patel Pulse Ox Last 24 Hr 97.7 F-98.6 F 59-79 15-20 127-168/47-87 98-100 PE Neuro: alert, awake, cn 2-12intact Pulm: clear anteriorly CV: s1 s2 rrr 3/6 systolic murmur Abd: x3 incision CDI, mild distention soft Ext: warm, no le edema Laboratory Results - last 24 hr 01/28/17 01/28/17 01/29/17 17:39 22:23 05:47 WBC RBC Hgb Hct MCV MCH MCHC RDW Plt Count MPV Neutrophils % Lymphocytes % Monocytes % Eosinophils % Basophils % Sodium 138 Potassium 3.8 Chloride 104 Carbon Dioxide 25 Anion Gap 9 BUN 10 D Creatinine 1.2 H Creat Clearance w eGFR 43.12 POC Glucometer 135 177 Random Glucose 147 H Calcium 9.3 Total Bilirubin 1.9 H D Direct Bilirubin 1.5 H D AST 102 H ALT 54 Alkaline Phosphatase 192 H D C-Reactive Protein 2.0 H D Total Protein 7.8 Albumin 3.3 L Total Amylase 72 Lipase 420 H 01/29/17 01/29/17 01/29/17 05:47 06:11 09:31 WBC 6.3 D RBC 4.43 Hgb 12.6 Hct 38.5 MCV 86.8 MCH 28.4 MCHC 32.7 RDW 14.8 Plt Count 267 D MPV 8.8 Neutrophils % 45.3 D Lymphocytes % 37.7 D Monocytes % 7.6 Eosinophils % 8.6 H Basophils % 0.8 Sodium Potassium Chloride Carbon Dioxide Anion Gap BUN Creatinine Creat Clearance w eGFR POC Glucometer 136 152 Random Glucose Calcium Total Bilirubin Direct Bilirubin AST ALT Alkaline Phosphatase C-Reactive Protein Total Protein Albumin Total Amylase Lipase Active Medications Generic Name Dose Route Start Last Admin Trade Name Freq PRN Reason Stop Dose Admin Acetaminophen 650 mg 01/29/17 14:29 Tylenol - PO Q4H PRN FEVER OR PAIN Amlodipine Besylate 10 mg 01/30/17 10:00 Norvasc - PO DAILY LILLIAN Docusate Sodium 100 mg 01/30/17 10:00 Colace - PO DAILY LILLIAN Fentanyl 25 mcg 01/29/17 14:34 01/29/17 12:55 Sublimaze Injection - IVPUSH 02/01/17 14:35 25 mcg [id number] PRN Administration PAIN Metronidazole 100 mls @ 100 mls/hr 01/29/17 18:00 Flagyl 500mg Premixed Ivpb - IVPB Q8H-IV LILLIAN Lactated Ringer's 1,000 mls @ 125 mls/hr 01/29/17 12:54 Lactated Ringers Solution IV ASDIR [facility]IAN Levofloxacin 50 mls @ 50 mls/hr 01/30/17 10:00 Levaquin 250 Mg Premixed Ivpb - IVPB DAILY [facility] Insulin Aspart 1 vial 01/29/17 16:30 Novolog Vial Sliding Scale - SQ TIDAC [facility] Protocol Insulin Aspart 1 vial 01/29/17 22:00 Novolog Vial Sliding Scale - SQ HS [facility] Protocol Levothyroxine Sodium 125 mcg 01/30/17 07:00 Synthroid - PO DAILY@0700 [facility] Losartan Potassium 100 mg 01/30/17 10:00 Cozaar - PO DAILY [facility] Metoprolol Succinate 50 mg 01/30/17 10:00 Toprol Xl - PO DAILY [facility] Morphine Sulfate 2 mg 01/29/17 14:30 01/29/17 14:51 Morphine Injection - IVPUSH 2 mg Q4H PRN Administration PAIN Nitroglycerin 0.4 mg 01/29/17 12:54 Nitrostat - SL PRN PRN chest pain Ondansetron HCl 4 mg 01/29/17 12:54 01/29/17 15:21 Zofran Injection IVPUSH 01/29/17 18:04 4 mg Q6H PRN Administration NAUSEA AND/OR VOMITING Tramadol HCl 50 mg 01/29/17 15:15 Ultram - PO Q6H PRN PAIN Imaging: ECHO: LA mod dilated, mild tricuspid regurg, nodular thickening and calcification of the aortic valve w/o evidence of stenosis Assessment: 81 year old female with pmhx CAD s/p stent 5 years ago, HTN, HLD, DM II, hypothyroidism, admitted with chest pain, sob, and numbness and RUE tingling. Plan: 1. Acute choleycystitis - Cholecystectomy today - Ultram prn pain - levaquin/flagyl (day 3) 2. Chest Pain - ACS ruled out - Continue ASA - Stress test negative for ischemia - Likely due to elevated blood pressure 3. HTN - BP stable currently - Losartan 100mg qday - Toprol xl 50mg qday - Amlodipine 10mg qday 4. HLD - Lipid panel noted - Increase lipitor 80mg HS once LFT's improved 5. DM II - ISS, BGM - Hgb a1c 8.5 - PO meds on hold 6. Hypothyroidism - Increased Synthroid 125mcg daily - T4 wnl indicating subclinical hypothyroid - Repeat TSH improved, will need close outpt follow up Visit type - Emergency Visit Emergency Visit: Yes ED Registration Date: 01/27/17 Care time: The patient presented to the Emergency Department on the above date and was hospitalized for further evaluation of their emergent condition. - New Patient This patient is new to me today: No - Critical Care Critical Care patient: No
[2017-01-29] MEDS ORDERED: PT OWN MED DRAWER 7, Y5N ONE (19:58)
[2017-01-29] MEDS ORDERED: INSULIN (NOVOLOG) ASPART 100 UNITS/ML 10ML VIAL ONE (21:45)
[2017-01-29] MEDS ORDERED: INSULIN SLIDING SCALE (NOVOLOG) 1 VIAL SQ SCH (22:00)
[2017-01-30 00:06] LABS: HEP B SURFACE AB Non Reactive (.)
[2017-01-30] MEDS: METRONIDAZOLE 500 MG PREMIXED 100 ML IVPB SCH ×3 (01:47→09:14)
[2017-01-30] MEDS: INSULIN SLIDING SCALE (NOVOLOG) 1 VIAL SQ SCH ×2 (06:51→11:51)
[2017-01-30] MEDS ORDERED: LEVOTHYROXINE NA 125 MCG TABLET (FP) PO SCH (07:00)
[2017-01-30 07:01] VITALS: PULSE 62
[2017-01-30 07:31] LABS: BASOPHIL 0.1 % (0-2.0); EOSINOPHIL 1.3 % (0-4.5); MCH 28.3 pg (25.7-33.7); MCHC 33.1 g/dl (32.0-36.0); MEAN CELL VOLUME 85.3 fl (80-96); MEAN PLT VOLUME 9.1 fl (7.5-11.1); NEUTROPHILS 73.1 % (42.8-82.8); PLATELET COUNT 209 K/MM3 (134-434); WHITE BLOOD COUNT 8.7 K/mm3 (4.0-10.0)
[2017-01-30 08:10] LABS: ALBUMIN 2.6 g/dl (3.4-5.0); ALK PHOS 152 U/L (45-117); ANION GAP 9 (8-16); BILIRUBIN,TOTAL 0.9 mg/dL (0.2-1.0); CALCIUM 8.5 mg/dL (8.5-10.1); CO2 23 mmol/L (21-32); GLUCOSE,RANDOM 129 mg/dL (74-106); SGOT/AST 76 U/L (15-37); SGPT/ALT 38 U/L (12-78); TOT PROT 6.3 g/dl (6.4-8.2)
[2017-01-30 08:41] VITALS: BP 130/56; TEMP 99
[2017-01-30] MEDS: amLODIPine BESYLATE 10 MG TABLET (FP) PO SCH ×2 (08:42→09:14)
[2017-01-30] MEDS: DOCUSATE SODIUM 100 MG CAPSULE (FP) PO SCH ×2 (08:42→09:14)
[2017-01-30] MEDS: METOPROLOL SUCCINATE 50 MG TAB.SR.24H (FP) PO SCH ×2 (08:42→10:18)
[2017-01-30] MEDS: LOSARTAN POTASSIUM 50 MG TABLET (FP) PO SCH ×2 (08:42→09:14)
[2017-01-30] MEDS: LEVOFLOXACIN 250 MG IVPB 50 ML IVPB SCH ×2 (08:43→09:14)
--- NOTE | 2017-01-30 09:21 | PN ---
Progress Note (short form) - Note Progress Note: Denies any complaints s/p Cholecystectomy Vital Signs Period Temp Pulse Resp BP Sys/Patel Pulse Ox Last 24 Hr 97.4 F-99.1 F 55-81 10-20 116-168/45-85 95-100 PE: AOx3 Neck: Supple, No JVD HEENT: PERRL, EOMI Lungs: CTA CVS: S1S2 Abd: Benign EXt: No Edema Neuro: No focal deficit CMP Sodium 138 mmol/L (136-145) 01/30/17 05:35 Potassium 4.2 mmol/L (3.5-5.1) 01/30/17 05:35 Chloride 106 mmol/L (98-107) 01/30/17 05:35 Carbon Dioxide 23 mmol/L (21-32) 01/30/17 05:35 Anion Gap 9 (8-16) 01/30/17 05:35 BUN 12 mg/dL (7-18) 01/30/17 05:35 Creatinine 1.0 mg/dL (0.55-1.02) 01/30/17 05:35 Creat Clearance w eGFR 53.21 (>60) 01/30/17 05:35 POC Glucometer 115 UNITS (()) 01/30/17 05:57 Random Glucose 129 mg/dL (74-106) H 01/30/17 05:35 Hemoglobin A1c % 8.5 % (4.8-6.0) H D 01/26/17 05:35 Lactic Acid 1.6 mmol/L (0.4-2.0) 01/27/17 09:21 Calcium 8.5 mg/dL (8.5-10.1) 01/30/17 05:35 Phosphorus 3.0 mg/dL (2.5-4.9) 01/26/17 05:35 Magnesium 1.8 mg/dL (1.8-2.4) 01/26/17 05:35 Total Bilirubin 0.9 mg/dL (0.2-1.0) D 01/30/17 05:35 Direct Bilirubin 1.5 mg/dL (0.0-0.2) H D 01/29/17 05:47 AST 76 U/L (15-37) H D 01/30/17 05:35 ALT 38 U/L (12-78) D 01/30/17 05:35 Alkaline Phosphatase 152 U/L (45-117) H D 01/30/17 05:35 Creatine Kinase 82 IU/L (26-192) 01/25/17 18:00 Troponin I < 0.02 ng/ml (0.00-0.05) 01/26/17 05:35 C-Reactive Protein 2.0 MG/DL (0.00-0.3) H D 01/29/17 05:47 Total Protein 6.3 g/dl (6.4-8.2) L 01/30/17 05:35 Albumin 2.6 g/dl (3.4-5.0) L D 01/30/17 05:35 Triglycerides 270 mg/dL (35-160) H D 01/26/17 05:35 Cholesterol 283 mg/dL (50-200) H D 01/26/17 05:35 Total LDL Cholesterol 176 mg/dL (5-100) H 01/26/17 05:35 HDL Cholesterol 50 mg/dL (40-60) D 01/26/17 05:35 Total Amylase 72 U/L (25-115) 01/29/17 05:47 Lipase 420 U/L (73-393) H 01/29/17 05:47 TSH 52.60 uIU/ml (0.358-3.74) H D 01/28/17 05:46 Free T4 0.82 ng/dl (0.76-1.46) D 01/28/17 05:46 Current Medications Generic Name Dose Route Start Last Admin Trade Name Freq PRN Reason Stop Dose Admin Acetaminophen 650 mg 01/29/17 14:29 Tylenol - PO Q4H PRN FEVER OR PAIN Amlodipine Besylate 10 mg 01/30/17 10:00 01/30/17 09:14 Norvasc - PO Not Given DAILY [facility] Docusate Sodium 100 mg 01/30/17 10:00 01/30/17 09:14 Colace - PO Not Given DAILY [facility] Fentanyl 25 mcg 01/29/17 14:34 01/29/17 12:55 Sublimaze Injection - IVPUSH 02/01/17 14:35 25 mcg [id number] PRN Administration PAIN Metronidazole 100 mls @ 100 mls/hr 01/29/17 18:00 09/22/17 09:14 Flagyl 500mg Premixed Ivpb - IVPB Not Given Q8H-IV [facility] Lactated Ringer's 1,000 mls @ 125 mls/hr 01/29/17 12:54 01/29/17 22:33 Lactated Ringers Solution IV 125 mls/hr ASDIR [facility] Administration Levofloxacin 50 mls @ 50 mls/hr 01/30/17 10:00 01/30/17 09:14 Levaquin 250 Mg Premixed Ivpb - IVPB Not Given DAILY [facility] Insulin Aspart 1 vial 01/29/17 16:30 01/30/17 06:51 Novolog Vial Sliding Scale - SQ Not Given TIDAC [facility] Protocol Insulin Aspart 1 vial 01/29/17 22:00 01/29/17 21:51 Novolog Vial Sliding Scale - SQ 2 unit HS [facility] Administration Protocol Levothyroxine Sodium 125 mcg 01/30/17 07:00 01/30/17 06:51 Synthroid - PO 125 mcg DAILY@0700 [facility] Administration Losartan Potassium 100 mg 01/30/17 10:00 01/30/17 09:14 Cozaar - PO Not Given DAILY [facility] Metoprolol Succinate 50 mg 01/30/17 10:00 Toprol Xl - PO DAILY [facility] Morphine Sulfate 2 mg 01/29/17 14:30 01/29/17 14:51 Morphine Injection - IVPUSH 2 mg Q4H PRN Administration PAIN Nitroglycerin 0.4 mg 01/29/17 12:54 Nitrostat - SL PRN PRN chest pain Tramadol HCl 50 mg 01/29/17 15:15 01/29/17 21:54 Ultram - PO 50 mg Q6H PRN Administration PAIN AP: S/P Cholecystectomy T2DM HYpothyroidism Cholelithiasis HTN Improving LFTs, Bilirubin normal Improving TFT Continue LT4 125 Restart Metformin at home once able to take regular food Problem List - Problems (1) ASHD (arteriosclerotic heart disease) Code(s): I25.10 - ATHSCL HEART DISEASE OF [place] CORONARY ARTERY W/O ANG PCTRS (2) Chest pain Code(s): R07.9 - CHEST PAIN, UNSPECIFIED Qualifiers: Chest pain type: unspecified Qualified Code(s): R07.9 - Chest pain, unspecified (3) Diabetes Code(s): E11.9 - TYPE 2 DIABETES MELLITUS WITHOUT COMPLICATIONS (4) HLD (hyperlipidemia) Code(s): E78.5 - HYPERLIPIDEMIA, UNSPECIFIED (5) HTN (hypertension) Code(s): I10 - ESSENTIAL (PRIMARY) HYPERTENSION (6) Hypothyroid Code(s): E03.9 - HYPOTHYROIDISM, UNSPECIFIED
--- NOTE | 2017-01-30 10:13 | PN ---
Progress Note (short form) - Note Progress Note: S: 81 year old female with history of CAD, s/p PCI/stenting, hypothyroidism, cholecystitis, NIDDM, underwent cholecystectomy. No history of chest pain or discomfort, no dyspnea, paroxysmal nocturnal dyspnea or orthopnea. Continues to tolerate her medicines, and no side effects have been reported. Active Medications Generic Name Dose Route Start Last Admin Trade Name Freq PRN Reason Stop Dose Admin Acetaminophen 650 mg 01/29/17 14:29 Tylenol - PO Q4H PRN FEVER OR PAIN Amlodipine Besylate 10 mg 01/30/17 10:00 01/30/17 09:14 Norvasc - PO Not Given DAILY [facility] Docusate Sodium 100 mg 01/30/17 10:00 01/30/17 09:14 Colace - PO Not Given DAILY [facility] Fentanyl 25 mcg 01/29/17 14:34 01/29/17 12:55 Sublimaze Injection - IVPUSH 02/01/17 14:35 25 mcg [id number] PRN Administration PAIN Metronidazole 100 mls @ 100 mls/hr 01/29/17 18:00 01/30/17 09:14 Flagyl 500mg Premixed Ivpb - IVPB Not Given Q8H-IV [facility] Lactated Ringer's 1,000 mls @ 125 mls/hr 01/29/17 12:54 01/29/17 22:33 Lactated Ringers Solution IV 125 mls/hr ASDIR [facility] Administration Levofloxacin 50 mls @ 50 mls/hr 01/30/17 10:00 01/30/17 09:14 Levaquin 250 Mg Premixed Ivpb - IVPB Not Given DAILY [facility] Insulin Aspart 1 vial 01/29/17 16:30 01/30/17 06:51 Novolog Vial Sliding Scale - SQ Not Given TIDAC [facility] Protocol Insulin Aspart 1 vial 01/29/17 22:00 01/29/17 21:51 Novolog Vial Sliding Scale - SQ 2 unit HS [facility] Administration Protocol Levothyroxine Sodium 125 mcg 01/30/17 07:00 01/30/17 06:51 Synthroid - PO 125 mcg DAILY@0700 [facility] Administration Losartan Potassium 100 mg 01/30/17 10:00 01/30/17 09:14 Cozaar - PO Not Given DAILY [facility] Metoprolol Succinate 50 mg 01/30/17 10:00 Toprol Xl - PO DAILY [facility] Morphine Sulfate 2 mg 01/29/17 14:30 01/29/17 14:51 Morphine Injection - IVPUSH 2 mg Q4H PRN Administration PAIN Nitroglycerin 0.4 mg 01/29/17 12:54 Nitrostat - SL PRN PRN chest pain Tramadol HCl 50 mg 01/29/17 15:15 01/29/17 21:54 Ultram - PO 50 mg Q6H PRN Administration PAIN O: 81 year old female was in no acute distress, no pallor, cyanosis, clubbing, or jaundice. Low grade temperature. Last Vital Signs Temp Pulse Resp BP Pulse Ox 99.0 F 62 18 130/56 97 01/30/17 08:41 01/30/17 08:41 01/30/17 08:41 01/30/17 08:41 01/29/17 21:00 Neck: Supple, no JVD, negative HJR, carotids were equal and upstrokes were normal, no thyromegaly appreciated. Heart: PMI was in the 5th intercostal space, no heaves or thrills, S1 and S2 were normal. JESSIKA II/ 2nd right ICS, ending in early systole. II/ decrescendo systolic murmur at the apex. No diastolic murmurs or gallops were appreciated. Lungs: Clear on auscultation bilaterally. Abdomen: Soft, nontender, surgical wound, no hepatosplenomegaly appreciated, and no palpable masses were felt. Extremities: No calf tenderness or dependent edema. Pulses are normal. Laboratory Results - last 24 hr 01/27/17 01/29/17 01/29/17 11:00 17:35 21:18 WBC RBC Hgb Hct MCV MCH MCHC RDW Plt Count MPV Neutrophils % Lymphocytes % Monocytes % Eosinophils % Basophils % Sodium Potassium Chloride Carbon Dioxide Anion Gap BUN Creatinine Creat Clearance w eGFR POC Glucometer 335 220 Random Glucose Calcium Total Bilirubin AST ALT Alkaline Phosphatase Total Protein Albumin Hep A IgM Ab Confirm Negative Hepatitis A Ab Total Positive H Hep Bs Antigen Negative Hep Bs Antibody Non reactive Hep B Core Total Ab Negative 01/30/17 01/30/17 01/30/17 05:35 05:35 05:57 WBC 8.7 D RBC 3.91 Hgb 11.0 D Hct 33.3 MCV 85.3 MCH 28.3 MCHC 33.1 RDW 15.0 Plt Count 209 D MPV 9.1 Neutrophils % 73.1 D Lymphocytes % 17.7 D Monocytes % 7.8 Eosinophils % 1.3 D Basophils % 0.1 Sodium 138 Potassium 4.2 Chloride 106 Carbon Dioxide 23 Anion Gap 9 BUN 12 Creatinine 1.0 Creat Clearance w eGFR 53.21 POC Glucometer 115 Random Glucose 129 H Calcium 8.5 Total Bilirubin 0.9 D AST 76 H D ALT 38 D Alkaline Phosphatase 152 H D Total Protein 6.3 L Albumin 2.6 L D Hep A IgM Ab Confirm Hepatitis A Ab Total Hep Bs Antigen Hep Bs Antibody Hep B Core Total Ab Impression: 1. Coronary artery disease, s/p PCI/stenting, stable angina pectoris. 2. NIDDM. 3. Hypertension, hypertensive cardiovascular disease. 4. Hypercholesterolemia. 5. S/p laparoscopic cholecystectomy. 6. Aortic valve sclerosis. Recommendations: 1. Continue current medications. 2. Increase ambulation. 3. Discharge when surgically stable. Attestation: Documentation prepared by Bere Sanchez, acting as medical records custodian for Titi Robert MD.
--- NOTE | 2017-01-30 10:43 | PN ---
Progress Note (short form) - Note Progress Note: surgery pt seen and examined. feels well. ambulating and voiding and tolerating diet. afebrile abd- soft, nt, incisons clean plan- surgically stable for d/c. elevated lfts per gi. will follow in about 2 weeks. ok to shower. no lifting. no need for narcotic or abx. [phone]
--- NOTE | 2017-01-30 11:45 | PN ---
Progress Note, Physician History of Present Illness: PULMONARY ALERT,NAD S/P LAP DEJAH,-RESP DISTRESS - Current Medication List Current Medications: Active Medications Acetaminophen (Tylenol -) 650 mg PO Q4H PRN PRN Reason: FEVER OR PAIN Amlodipine Besylate (Norvasc -) 10 mg PO DAILY [facility] Last Admin: 01/30/17 09:14 Dose: Not Given Docusate Sodium (Colace -) 100 mg PO DAILY [facility] Last Admin: 01/30/17 09:14 Dose: Not Given Fentanyl (Sublimaze Injection -) 25 mcg IVPUSH [id number] PRN PRN Reason: PAIN Stop: 02/01/17 14:35 Last Admin: 01/29/17 12:55 Dose: 25 mcg Metronidazole (Flagyl 500mg Premixed Ivpb -) 100 mls @ 100 mls/hr IVPB Q8H-IV [facility] Last Admin: 01/30/17 09:14 Dose: Not Given Lactated Ringer's (Lactated Ringers Solution) 1,000 mls @ 125 mls/hr IV ASDIR [facility] Last Admin: 01/29/17 22:33 Dose: 125 mls/hr Levofloxacin (Levaquin 250 Mg Premixed Ivpb -) 50 mls @ 50 mls/hr IVPB DAILY [facility] Last Admin: 01/30/17 09:14 Dose: Not Given Insulin Aspart (Novolog Vial Sliding Scale -) 1 vial SQ TIDAC LILLIAN PRN Reason: Protocol Last Admin: 01/30/17 06:51 Dose: Not Given Insulin Aspart (Novolog Vial Sliding Scale -) 1 vial SQ HS [facility] PRN Reason: Protocol Last Admin: 01/29/17 21:51 Dose: 2 unit Levothyroxine Sodium (Synthroid -) 125 mcg PO DAILY@0700 [facility] Last Admin: 01/30/17 06:51 Dose: 125 mcg Losartan Potassium (Cozaar -) 100 mg PO DAILY [facility] Last Admin: 01/30/17 09:14 Dose: Not Given Metoprolol Succinate (Toprol Xl -) 50 mg PO DAILY [facility] Last Admin: 01/30/17 10:18 Dose: Not Given Morphine Sulfate (Morphine Injection -) 2 mg IVPUSH Q4H PRN PRN Reason: PAIN Last Admin: 01/29/17 14:51 Dose: 2 mg Nitroglycerin (Nitrostat -) 0.4 mg SL PRN PRN PRN Reason: chest pain Tramadol HCl (Ultram -) 50 mg PO Q6H PRN PRN Reason: PAIN Last Admin: 01/29/17 21:54 Dose: 50 mg - Objective Vital Signs: Vital Signs Temperature 99.0 F 01/30/17 08:41 Pulse Rate 62 01/30/17 08:41 Respiratory Rate 18 01/30/17 10:00 Blood Pressure 130/56 01/30/17 08:41 O2 Sat by Pulse Oximetry (%) 98 01/30/17 10:00 Constitutional: Yes: Well Nourished, Calm Eyes: Yes: WNL HENT: Yes: WNL Neck: Yes: WNL Cardiovascular: Yes: Regular Rate and Rhythm, S1, S2 Respiratory: Yes: Diminished Gastrointestinal: Yes: Normal Bowel Sounds, Soft Extremities: Yes: WNL Edema: No Labs: CBC, BMP 01/30/17 05:35 01/30/17 05:35 INR, PTT INR 1.03 (0.82-1.09) 01/26/17 05:35 Problem List - Problems (1) Chest pain Code(s): R07.9 - CHEST PAIN, UNSPECIFIED Qualifiers: Chest pain type: unspecified Qualified Code(s): R07.9 - Chest pain, unspecified (2) ASHD (arteriosclerotic heart disease) Code(s): I25.10 - ATHSCL HEART DISEASE OF [place] CORONARY ARTERY W/O ANG PCTRS (3) HTN (hypertension) Code(s): I10 - ESSENTIAL (PRIMARY) HYPERTENSION (4) Diabetes Code(s): E11.9 - TYPE 2 DIABETES MELLITUS WITHOUT COMPLICATIONS (5) HLD (hyperlipidemia) Code(s): E78.5 - HYPERLIPIDEMIA, UNSPECIFIED (6) Hypothyroid Code(s): E03.9 - HYPOTHYROIDISM, UNSPECIFIED Assessment/Plan IMP ACUTE CHOLECYSTITIS S/P LAP CHOLECYSTECTOMY CHEST PAIN SYNDROME Resolved ASHD S/P STENT HTN DM HLD HYPOTHYROIDISM PLAN TOPROL MONITOR LFTS D/C HOME PER SURGERY INCENTVE SPIROMETER DR RAPP Problem List - Problems (1) Chest pain Code(s): R07.9 - CHEST PAIN, UNSPECIFIED Qualifiers: Chest pain type: unspecified Qualified Code(s): R07.9 - Chest pain, unspecified (2) ASHD (arteriosclerotic heart disease) Code(s): I25.10 - ATHSCL HEART DISEASE OF [place] CORONARY ARTERY W/O ANG PCTRS (3) HTN (hypertension) Code(s): I10 - ESSENTIAL (PRIMARY) HYPERTENSION (4) Diabetes Code(s): E11.9 - TYPE 2 DIABETES MELLITUS WITHOUT COMPLICATIONS (5) HLD (hyperlipidemia) Code(s): E78.5 - HYPERLIPIDEMIA, UNSPECIFIED (6) Hypothyroid Code(s): E03.9 - HYPOTHYROIDISM, UNSPECIFIED
--- NOTE | 2017-01-30 12:30 | DS ---
Physical Exam: SUBJECTIVE: Patient seen and examined. She has no complaints, ambulating well, denies fever, chills, nausea, vomiting. OBJECTIVE: Vital Signs Period Temp Pulse Resp BP Sys/Patel Pulse Ox Last 24 Hr 97.7 F-99.1 F 55-70 10-20 116-142/47-68 97-100 PE Neuro: alert, awake, cn 2-12intact Pulm: clear anteriorly CV: s1 s2 rrr 3/6 systolic murmur Abd: x3 incision CDI, mild distention soft Ext: warm, no le edema Laboratory Results - last 24 hr 01/29/17 01/29/17 01/30/17 17:35 21:18 05:35 WBC 8.7 D RBC 3.91 Hgb 11.0 D Hct 33.3 MCV 85.3 MCH 28.3 MCHC 33.1 RDW 15.0 Plt Count 209 D MPV 9.1 Neutrophils % 73.1 D Lymphocytes % 17.7 D Monocytes % 7.8 Eosinophils % 1.3 D Basophils % 0.1 Sodium Potassium Chloride Carbon Dioxide Anion Gap BUN Creatinine Creat Clearance w eGFR POC Glucometer 335 220 Random Glucose Calcium Total Bilirubin AST ALT Alkaline Phosphatase Total Protein Albumin 01/30/17 01/30/17 01/30/17 05:35 05:57 11:50 WBC RBC Hgb Hct MCV MCH MCHC RDW Plt Count MPV Neutrophils % Lymphocytes % Monocytes % Eosinophils % Basophils % Sodium 138 Potassium 4.2 Chloride 106 Carbon Dioxide 23 Anion Gap 9 BUN 12 Creatinine 1.0 Creat Clearance w eGFR 53.21 POC Glucometer 115 147 Random Glucose 129 H Calcium 8.5 Total Bilirubin 0.9 D AST 76 H D ALT 38 D Alkaline Phosphatase 152 H D Total Protein 6.3 L Albumin 2.6 L D HOSPITAL COURSE: Date of Admission:01/27/17 Date of Discharge: 01/30/17 Minutes to complete discharge: 37 Discharge Summary Reason For Visit: CHEST PAIN Current Active Problems ASHD (arteriosclerotic heart disease) (Acute) Chest pain (Acute) Cholecystitis with cholelithiasis (Acute) Diabetes (Acute) HLD (hyperlipidemia) (Acute) HTN (hypertension) (Acute) Hypothyroid (Acute) Jaundice (Acute) Hospital Course: Initial Hospital Course: Briefly, this 81 year old female with significant past medical history of CAD s/ p 1 stent, Hypertension, Hyperlipidemia, Diabetes Mellitus, Hypothyroidism, constipation, low back pain admitted with Left sided chest pain. CP started in AM, located in the left side, 8/10 in intensity, non radiating, pressure type, associated with SOB, tingling and numbness of right arm and mouth. She took 2 Nitro that only relieved her pain slightly. Then c/o dizziness, blurring of vision. Her daughter then called 911. When EMS arrived, her BP was 80/ 40 mmHg and blood sugar was 290 mg/dl as per the daughter. She was given 1 L of NS and her BP improved. Daughter mentions that patient is non compliant with her medications, hasn't taken medications since 3-4 weeks. Patient has trouble sleeping at night especially because of her heart burn. Endoscopy and colonoscopy was done 15 years ago which she says was normal. Imaging: ECHO: LA mod dilated, mild tricuspid regurg, nodular thickening and calcification of the aortic valve w/o evidence of stenosis Subsequent Hospital Course/Progress Note/DC summary: Assessment: 81 year old female with pmhx CAD s/p stent 5 years ago, HTN, HLD, DM II, hypothyroidism, admitted with chest pain, sob, and numbness and RUE tingling. Hospital course complicated by fever and elevated LFT's. MRCP showed stone had passed, due to rising bili pt underwent cholecystectomy 01/29/17. Plan: 1. Acute choleycystitis - s/p Cholecystectomy 01/29 - Office followup in 2 weeks for bx (referral enclosed) - No abx on dc - Clears for 3 days, daughter aware 2. Chest Pain - ACS ruled out - Continue ASA - Stress test negative for ischemia - Likely due to elevated blood pressure 3. HTN - Losartan 100mg qday - Toprol xl 50mg qday - Amlodipine 10mg qday 4. HLD - Lipid panel noted - Lipitor 40mg HS, increase per PCP once stable post op 5. DM II - Hgb a1c 8.5 - Resume home po meds 6. Hypothyroidism - Increased Synthroid 125mcg daily - T4 wnl indicating subclinical hypothyroid - Repeat TSH improved, will need close outpt follow up - Daughter aware to follow up in [address] Gunderson 7. GERD - Resume Nexium - Discussed diet control Dispo: - Home with above plan and follow up - Meds as above - Daughter and pt aware and agree to above plan Condition: Stable - Instructions Diet, Activity, Other Instructions: Please return to the ED for any new, persistent, or worsening symptoms. Follow up with your PCP in 1 week Clear liquids diet for 3 days Advance diet slowly with bland foods, low acid Take home medication as directed New synthroid dose: 125mcg daily, follow up with Dr Gunderson in 2 weeks Follow up with surgery Dr. Harry in 2 weeks (referral information enclosed) Referrals: Tapan Davalos MD [Primary Care Provider] - 1 Week Marcel Harry MD [Staff Physician] - 2 Weeks Ttii Robert MD [Staff Physician] - Johnson Lopez MD [Staff Physician] - 2 Weeks Disposition: HOME - Home Medications Comprehensive Discharge Medication List: Ambulatory Orders Amlodipine Besylate [Norvasc -] 10 mg PO DAILY 01/25/17 Atorvastatin Ca [Lipitor] 40 mg PO HS 01/25/17 Docusate Sodium [Colace -] 100 mg PO DAILY 01/25/17 Doxylamine Succinate [Unisom Sleep Aid] 25 mg PO HS 01/25/17 Esomeprazole Magnesium [Nexium 24Hr] 20 mg PO DAILY 01/25/17 Losartan Potassium 100 mg PO DAILY 01/25/17 Metoprolol Succinate [Toprol XL -] 50 mg PO DAILY 01/25/17 Nitroglycerin 0.4 mg SL PRN PRN 01/25/17 Sitagliptin Phos/Metformin HCl [Janumet 50-500 mg Tablet] 1 each PO DAILY Levothyroxine [Synthroid -] 125 mcg PO DAILY@0700 #30 tablet 01/30/17 This patient is new to me today: No Emergency Visit: Yes ED Registration Date: 01/27/17 Care time: The patient presented to the Emergency Department on the above date and was hospitalized for further evaluation of their emergent condition. Critical Care patient: No - Discharge Referral Referred to [facility] No
--- NOTE | 2017-01-30 13:38 | PATH ---
Surgical Pathology Report Patient Name: SHARAN STEPHENS [facility]. Rec. #: [id number] /Age/Gender: 1935 (Age: 81) / F Account: [id number] Location: 4 W TELEMETRY U Taken: 01/29/2017 Received: 01/29/2017 Reported: 01/30/2017 Physicians: Marcel Harry Specimen(s) Received GALLBLADDER Clinical History Cholecystitis Final Diagnosis GALLBLADDER, CHOLECYSTECTOMY: CHRONIC CHOLECYSTITIS AND CHOLELITHIASIS. Electronically Signed Tarun Chavez M.D. Gross Description Received in formalin, labeled "gallbladder," is a 6.4 x 2.3 x 2.1 cm. gallbladder with a 0.2 cm. in length stapled portion of cystic duct attached. The outer surface is costa-pink and varies from smooth to shaggy. The lumen contains green, tenacious bile as well as 3 black, irregular choleliths averaging 0.1 cm greatest dimension. The mucosa is costa and velvety. The wall of the gallbladder averages 0.2 cm. in thickness. Nurse'S Assistant sections are submitted in one cassette. /01/29/2017 [facility]01/29/2017
== END 2017-01-30 14:14 | disposition home health service (06) | DRG 418 ==
LOC: JER 17:28 → JERBED 20:09 → J4W 21:31 → OBSVTOIN 01-27 14:38
PROVIDERS: ADMIT Internal Medicine; ATTEND Nurse Practitioner Acute Care
PROC: 0FT44ZZ Resection of Gallbladder, Percutaneous Endoscopic Approach (ICD-10-PCS; principal; 2017-01-27)
PROC: 3E1M38Z Irrigation of Peritoneal Cavity using Irrigating Substance, Percutaneous Approach (ICD-10-PCS; 2017-01-27)
DX: K81.0 Acute cholecystitis (principal); N17.9 Acute kidney failure, unspecified; E87.1 Hypo-osmolality and hyponatremia; I25.10 Atherosclerotic heart disease of native coronary artery without angina pectoris; Z95.5 Presence of coronary angioplasty implant and graft; I10 Essential (primary) hypertension; E11.9 Type 2 diabetes mellitus without complications; Z79.84 Long term (current) use of oral hypoglycemic drugs; E87.6 Hypokalemia; E78.5 Hyperlipidemia, unspecified; E03.9 Hypothyroidism, unspecified; K21.9 Gastro-esophageal reflux disease without esophagitis; K59.00 Constipation, unspecified; M54.5 Low back pain; Z91.14 Patient's other noncompliance with medication regimen; R50.9 Fever, unspecified; I35.8 Other nonrheumatic aortic valve disorders
CPT/HCPCS: 36415; 71010-TC; 74181-TC; 76705-TC; 78452-TC; 80048; 80053; 80061; 80076; 81003; 81015; 82150; 82248; 83036; 83605; 83690; 83721; 83735; 84100; 84439; 84443; 84484; 85025; 85610; 85730; 86140; 86704; 86706; 86708; 87040; 87086; 87340; 88304-TC; 93005; 93010; 93017; 93306-TC; 94760; 99284-25; A9502; G0378; J1644

== ENCOUNTER 2020-09-01 13:13 | Observation (INO) | payer BC, OTHER ==
[2020-09-01 14:29] LABS: BASO % 1.2 % (0-2.0); EOS % 8.3 % (0-4.5); HEMATOCRIT 36.2 % (32.4-45.2); LYMPH % 30.8 % (8-40); MCH 29.7 pg (25.7-33.7); MCHC 33.3 g/dl (32.0-36.0); MEAN CELL VOLUME 89.5 fl (80-96); MEAN PLT VOLUME 8.3 fl (7.5-11.1); MONO % 8.5 % (3.8-10.2); NEUT % 51.2 % (42.8-82.8); PLATELET COUNT 270 K/MM3 (134-434); RBC 4.05 M/mm3 (3.60-5.2); WHITE BLOOD COUNT 6.1 K/mm3 (4.0-10.0)
[2020-09-01 14:46] LABS: CHLORIDE 98 mmol/L (98-107); SODIUM 134 mmol/L (136-145)
[2020-09-01 14:48] LABS: CALCIUM 9.7 mg/dL (8.5-10.1)
[2020-09-01 14:49] LABS: ALBUMIN 3.6 g/dl (3.4-5.0); ANION GAP 5 MMOL/L (8-16); BLOOD UREA NITROGEN 11.4 mg/dL (7-18); CO2 31 mmol/L (21-32); GLUCOSE,RANDOM 146 mg/dL (74-106)
[2020-09-01 14:52] LABS: CREATININE 1.3 mg/dL (0.55-1.3); SGOT/AST 45 U/L (15-37); SGPT/ALT 14 U/L (13-61)
[2020-09-01 14:53] LABS: BILIRUBIN,TOTAL 0.5 mg/dL (0.2-1)
[2020-09-01 14:55] LABS: ALK PHOS 101 U/L (45-117)
[2020-09-01] MEDS ORDERED: LABETALOL HCL 5 MG/1 ML (100MG/20 ML VIAL) IVPUSH ONE (16:57)
[2020-09-01] MEDS ORDERED: LABETALOL HCL 5 MG/1 ML (100MG/20 ML VIAL) ONE (17:00)
[2020-09-01 17:10] LABS: PH,URINE 8.5 (5.0-8.0); URINE APPEARANCE CLEAR; URINE BILIRUBIN NEGATIVE (NEGATIVE); URINE COLOR YELLOW; URINE GLUCOSE (UA) NEGATIVE (NEGATIVE); URINE KETONE NEGATIVE (NEGATIVE); URINE LEUK ESTERASE NEGATIVE (NEGATIVE); URINE NITRITE NEGATIVE (NEGATIVE); URINE PROTEIN TRACE (NEGATIVE); URINE UROBILINOGEN 0.2 mg/dL (0.2-1.0)
[2020-09-01] MEDS ORDERED: hydrALAZINE HCL 20 MG/ML VIAL IVPUSH ONE (18:07)
[2020-09-01] MEDS ORDERED: hydrALAZINE HCL 20 MG/ML VIAL ONE (18:28)
[2020-09-01] MEDS ORDERED: LABETALOL HCL 100 MG TABLET (FP) PO ONE (23:08)
[2020-09-01] MEDS ORDERED: amLODIPine BESYLATE 5 MG TABLET (FP) PO ONE (23:12)
[2020-09-01] MEDS ORDERED: amLODIPine BESYLATE 5 MG TABLET (FP) ONE (23:36)
[2020-09-02 04:43] VITALS: BMI 22.8
[2020-09-02] MEDS: HEPARIN NA (PORCINE) 5,000 UNITS/ML 1ML VIAL SQ SCH ×3 (06:16→21:21)
[2020-09-02] MEDS: INSULIN SLIDING SCALE (NOVOLOG) 1 VIAL SQ SCH ×4 (06:16→21:22)
[2020-09-02 08:20] LABS: HEMOGLOBIN 11.6 GM/dL (10.7-15.3); MCH 30.3 pg (25.7-33.7); MCHC 34.2 g/dl (32.0-36.0); MEAN CELL VOLUME 88.6 fl (80-96); MEAN PLT VOLUME 8.7 fl (7.5-11.1); PLATELET COUNT 268 K/MM3 (134-434); RBC 3.84 M/mm3 (3.60-5.2); RDW 14.7 % (11.6-15.6); WHITE BLOOD COUNT 5.4 K/mm3 (4.0-10.0)
[2020-09-02 08:39] LABS: CHLORIDE 100 mmol/L (98-107); SODIUM 136 mmol/L (136-145)
[2020-09-02 08:44] LABS: CHOLESTEROL 334 mg/dL (50-200)
[2020-09-02 08:45] LABS: TRIGLYCERIDES 259 mg/dL (0-150)
[2020-09-02 08:46] LABS: CALCIUM 9.5 mg/dL (8.5-10.1); LDL CHOLESTEROL (ONLY SJRH) 219 mg/dL (5-100)
[2020-09-02 08:47] LABS: ANION GAP 6 MMOL/L (8-16); BLOOD UREA NITROGEN 18.2 mg/dL (7-18); CO2 30 mmol/L (21-32); GLUCOSE,RANDOM 132 mg/dL (74-106); HDL CHOLESTEROL 48 mg/dL (40-60); MAGNESIUM 2.4 mg/dL (1.8-2.4)
[2020-09-02 08:50] LABS: CREATININE 1.4 mg/dL (0.55-1.3); PHOSPHOROUS 4.8 mg/dL (2.5-4.9)
[2020-09-02] MEDS: LOSARTAN POTASSIUM 50 MG TABLET PO SCH (09:36)
[2020-09-02] MEDS ORDERED: PATIENT'S OWN MEDICATION (NON-FORMULARY) (Olmesartan Medoxomil 40 MG Tablet) PO SCH (10:00)
[2020-09-03] MEDS: INSULIN SLIDING SCALE (NOVOLOG) 1 VIAL SQ SCH ×4 (06:16→22:27)
[2020-09-03] MEDS: HEPARIN NA (PORCINE) 5,000 UNITS/ML 1ML VIAL SQ SCH ×2 (06:18→21:23)
[2020-09-03] MEDS: metFORMIN HCL 500 MG TABLET (FP) PO SCH (06:32)
[2020-09-03] MEDS ORDERED: LEVOTHYROXINE NA 50 MCG TABLET (FP) PO SCH (07:00)
[2020-09-03 07:44] LABS: HEMATOCRIT 34.4 % (32.4-45.2); HEMOGLOBIN 11.6 GM/dL (10.7-15.3); MCH 29.9 pg (25.7-33.7); MCHC 33.7 g/dl (32.0-36.0); MEAN CELL VOLUME 88.6 fl (80-96); MEAN PLT VOLUME 8.5 fl (7.5-11.1); PLATELET COUNT 265 K/MM3 (134-434); RBC 3.88 M/mm3 (3.60-5.2); RDW 14.7 % (11.6-15.6); WHITE BLOOD COUNT 5.3 K/mm3 (4.0-10.0)
[2020-09-03 08:21] LABS: ALBUMIN 3.2 g/dl (3.4-5.0); CALCIUM 9.5 mg/dL (8.5-10.1)
[2020-09-03 08:22] LABS: BLOOD UREA NITROGEN 18.3 mg/dL (7-18)
[2020-09-03 08:25] LABS: CREATININE 1.5 mg/dL (0.55-1.3)
[2020-09-03 08:26] LABS: BILIRUBIN,TOTAL 0.5 mg/dL (0.2-1)
[2020-09-03] MEDS: LOSARTAN POTASSIUM 50 MG TABLET PO SCH (09:27)
[2020-09-03] MEDS: amLODIPine BESYLATE 5 MG TABLET (FP) PO SCH (15:10)
[2020-09-03] MEDS: ASPIRIN 81 MG CHEWABLE TABLETS PO SCH (15:10)
[2020-09-03] MEDS ORDERED: ROSUVASTATIN CA 10 MG TABLET (FP) PO SCH (22:00)
[2020-09-04] MEDS: metFORMIN HCL 500 MG TABLET (FP) PO SCH (06:31)
[2020-09-04] MEDS: INSULIN SLIDING SCALE (NOVOLOG) 1 VIAL SQ SCH ×2 (06:34→11:48)
[2020-09-04 07:48] LABS: EOS % 8.3 % (0-4.5); HEMATOCRIT 32.7 % (32.4-45.2); HEMOGLOBIN 11.2 GM/dL (10.7-15.3); LYMPH % 48.7 % (8-40); MCH 30.4 pg (25.7-33.7); MCHC 34.1 g/dl (32.0-36.0); MEAN CELL VOLUME 88.9 fl (80-96); MEAN PLT VOLUME 8.4 fl (7.5-11.1); MONO % 8.4 % (3.8-10.2); NEUT % 33.6 % (42.8-82.8); PLATELET COUNT 245 K/MM3 (134-434); RBC 3.68 M/mm3 (3.60-5.2); RDW 14.8 % (11.6-15.6); WHITE BLOOD COUNT 5.1 K/mm3 (4.0-10.0)
[2020-09-04 08:02] LABS: BLOOD UREA NITROGEN 17.2 mg/dL (7-18); CALCIUM 8.9 mg/dL (8.5-10.1)
[2020-09-04 08:05] LABS: CREATININE 1.4 mg/dL (0.55-1.3)
[2020-09-04] MEDS ORDERED: PT OWN MED DRAWER 7, Y5N ONE (09:10)
[2020-09-04] MEDS: amLODIPine BESYLATE 5 MG TABLET (FP) PO SCH (09:41)
[2020-09-04] MEDS: LOSARTAN POTASSIUM 50 MG TABLET PO SCH (09:41)
[2020-09-04] MEDS: HEPARIN NA (PORCINE) 5,000 UNITS/ML 1ML VIAL SQ SCH (09:41)
[2020-09-04] MEDS: ASPIRIN 81 MG CHEWABLE TABLETS PO SCH (09:41)
[2020-09-04] MEDS ORDERED: LEVOTHYROXINE SODIUM 100 MCG VIAL IVPUSH SCH (10:00)
[2020-09-04] MEDS ORDERED: CYANOCOBALAMIN (VITAMIN B-12) 1000 MCG/1 ML VIAL IM ONE (11:30)
[2020-09-04 14:24] VITALS: BP 148/78; PULSE 74; TEMP 97.9
== END 2020-09-04 17:19 | disposition home or self-care (01) ==
LOC: SUPCPDRO 13:13 → JER 13:13 → JERBED 18:15 → INTOOBSV 18:15 → J4W 09-02 06:46
PROVIDERS: ADMIT Internal Medicine; ATTEND Family Medicine
PROC: 3E023GC Introduction of Other Therapeutic Substance into Muscle, Percutaneous Approach (ICD-10-PCS; principal; 2020-09-01)
PROC: 3E033GC Introduction of Other Therapeutic Substance into Peripheral Vein, Percutaneous Approach (ICD-10-PCS; 2020-09-01)
DX: I25.10 Atherosclerotic heart disease of native coronary artery without angina pectoris (principal); I11.9 Hypertensive heart disease without heart failure; K21.9 Gastro-esophageal reflux disease without esophagitis; I16.0 Hypertensive urgency; E03.9 Hypothyroidism, unspecified; Z29.9 Encounter for prophylactic measures, unspecified
CPT/HCPCS: 36415; 70450-TC; 71046-TC-FY; 80048; 80053; 80061; 81003; 82272; 82550; 82553; 82607; 82962; 83036; 83721; 83735; 84100; 84443; 84484; 85025; 85027; 93005; 93010; 93880-TC; 96372; 96374; 96375; 99285-25; C9803; G0378; J1644; U0003; U0005

== ENCOUNTER 2021-09-18 18:23 | Observation (INO) | payer BC ==
[2021-09-18 20:40] LABS: BASO % 0.5 % (0-2.0); EOS % 3.2 % (0-4.5); HEMATOCRIT 35.6 % (32.4-45.2); HEMOGLOBIN 11.8 GM/dL (10.7-15.3); LYMPH % 37.3 % (8-40); MCH 29.6 pg (25.7-33.7); MCHC 33.3 g/dl (32.0-36.0); MEAN PLT VOLUME 8.6 fl (7.5-11.1); MONO % 7.6 % (3.8-10.2); NEUT % 51.4 % (42.8-82.8); PLATELET COUNT 278 10^3/uL (134-434); WHITE BLOOD COUNT 5.5 K/mm3 (4.0-10.0)
[2021-09-18 20:43] LABS: EPI CELLS 14 /uL (0-25.1); HYALINE CASTS 0 /uL (0-3.1); URINE APPEARANCE CLEAR; URINE BACTERIA 297 /uL (0-1359); URINE BILIRUBIN NEGATIVE (NEGATIVE); URINE COLOR YELLOW; URINE GLUCOSE (UA) NEGATIVE (NEGATIVE); URINE KETONE NEGATIVE (NEGATIVE); URINE LEUK ESTERASE TRACE (NEGATIVE); URINE NITRITE NEGATIVE (NEGATIVE); URINE PROTEIN 1+ (NEGATIVE); URINE RBC 11 /uL (0-23.9); URINE UROBILINOGEN 0.2 mg/dL (0.2-1.0); URINE WBC 39 /uL (0-25.8)
[2021-09-18 20:48] LABS: PROTHROMBIN TIME (PATIENT) 11.5 SEC (9.7-13.0)
[2021-09-18 20:50] LABS: ACTIVATED PTT 34.8 SECONDS (25.2-36.5)
[2021-09-18 21:06] LABS: MAGNESIUM 2.3 mg/dL (1.8-2.4)
[2021-09-18 21:13] LABS: ALBUMIN 3.9 g/dl (3.4-5.0); BLOOD UREA NITROGEN 19.3 mg/dL (7-18); CALCIUM 9.5 mg/dL (8.5-10.1)
[2021-09-18 21:16] LABS: CREATININE 1.3 mg/dL (0.55-1.3)
[2021-09-18 21:18] LABS: BILIRUBIN,TOTAL 0.4 mg/dL (0.2-1)
[2021-09-19] MEDS: LEVOTHYROXINE 100 MCG, LEVOTHYROXINE 75 MCG PO SCH (06:50)
[2021-09-19] MEDS ORDERED: LEVOTHYROXINE NA 150 MCG TABLET PO SCH (07:00)
[2021-09-19] MEDS: INSULIN SLIDING SCALE (NOVOLOG) 1 VIAL SQ SCH ×4 (07:15→21:13)
[2021-09-19 17:14] VITALS: BMI 24.4
[2021-09-19] MEDS: VALSARTAN 160 MG TABLET PO SCH (17:19)
[2021-09-19] MEDS: ROSUVASTATIN CA 10 MG TABLET PO SCH (21:13)
[2021-09-20] MEDS ORDERED: LEVOTHYROXINE NA 100 MCG TABLET (FP) ONE (06:07)
[2021-09-20] MEDS ORDERED: LEVOTHYROXINE NA 75 MCG TABLET (FP) ONE (06:07)
[2021-09-20] MEDS: LEVOTHYROXINE 100 MCG, LEVOTHYROXINE 75 MCG PO SCH (06:15)
[2021-09-20] MEDS: INSULIN SLIDING SCALE (NOVOLOG) 1 VIAL SQ SCH ×4 (06:15→21:17)
[2021-09-20] MEDS: amLODIPine BESYLATE 5 MG TABLET (FP) PO SCH (09:19)
[2021-09-20] MEDS: VALSARTAN 160 MG TABLET PO SCH (09:19)
[2021-09-20] MEDS ORDERED: INSULIN (NOVOLOG) ASPART 100 UNITS/ML 10ML VIAL ONE ×3 (17:30→21:09)
[2021-09-20] MEDS: ROSUVASTATIN CA 10 MG TABLET PO SCH (21:17)
[2021-09-21] MEDS ORDERED: LEVOTHYROXINE NA 100 MCG TABLET (FP) ONE ×2 (06:03)
[2021-09-21] MEDS ORDERED: LEVOTHYROXINE NA 75 MCG TABLET (FP) ONE ×2 (06:03→06:04)
[2021-09-21] MEDS: INSULIN SLIDING SCALE (NOVOLOG) 1 VIAL SQ SCH ×4 (06:23→21:39)
[2021-09-21] MEDS: LEVOTHYROXINE 100 MCG, LEVOTHYROXINE 75 MCG PO SCH (06:23)
[2021-09-21] MEDS: VALSARTAN 160 MG TABLET PO SCH (09:29)
[2021-09-21] MEDS: amLODIPine BESYLATE 5 MG TABLET (FP) PO SCH (09:29)
[2021-09-21] MEDS ORDERED: INSULIN (NOVOLOG) ASPART 100 UNITS/ML 10ML VIAL ONE ×2 (11:23→17:32)
[2021-09-21] MEDS ORDERED: ACETAMINOPHEN 325 MG TABLET (FP) PO PRN (17:16)
[2021-09-21] MEDS: ROSUVASTATIN CA 10 MG TABLET PO SCH (21:38)
[2021-09-22] MEDS ORDERED: LEVOTHYROXINE NA 100 MCG TABLET (FP) ONE (05:31)
[2021-09-22] MEDS ORDERED: LEVOTHYROXINE NA 75 MCG TABLET (FP) ONE (05:32)
[2021-09-22] MEDS: LEVOTHYROXINE 100 MCG, LEVOTHYROXINE 75 MCG PO SCH (06:05)
[2021-09-22] MEDS: INSULIN SLIDING SCALE (NOVOLOG) 1 VIAL SQ SCH ×4 (06:07→22:18)
[2021-09-22] MEDS ORDERED: LIOTHYRONINE SODIUM 5 MCG TABLET PO SCH (07:00)
[2021-09-22] MEDS: amLODIPine BESYLATE 5 MG TABLET (FP) PO SCH (09:07)
[2021-09-22] MEDS: VALSARTAN 160 MG TABLET PO SCH (09:07)
[2021-09-22] MEDS: ROSUVASTATIN CA 10 MG TABLET PO SCH (22:08)
[2021-09-23] MEDS ORDERED: LEVOTHYROXINE NA 100 MCG TABLET (FP) ONE (05:14)
[2021-09-23] MEDS ORDERED: LEVOTHYROXINE NA 75 MCG TABLET (FP) ONE (05:14)
[2021-09-23] MEDS: LEVOTHYROXINE 100 MCG, LEVOTHYROXINE 75 MCG PO SCH (06:24)
[2021-09-23] MEDS: INSULIN SLIDING SCALE (NOVOLOG) 1 VIAL SQ SCH ×2 (06:25→11:45)
[2021-09-23] MEDS: VALSARTAN 160 MG TABLET PO SCH (09:56)
[2021-09-23] MEDS: amLODIPine BESYLATE 5 MG TABLET (FP) PO SCH (09:57)
[2021-09-23] MEDS ORDERED: INSULIN (NOVOLOG) ASPART 100 UNITS/ML 10ML VIAL ONE ×2 (11:07→11:32)
[2021-09-23 15:32] VITALS: BP 152/83; PULSE 80; TEMP 98.3
[2021-09-25 11:09] LABS: IGG QN IMMUNOGLOBULIN 1902 mg/dL (586-1602); IGG SUBCLASS 1 1105 mg/dL (248-810); IGG SUBCLASS 2 348 mg/dL (130-555); IGG SUBCLASS 3 49 mg/dL (15-102)
== END 2021-09-23 18:27 | disposition home health service (06) ==
LOC: JER 18:23 → UNDOADMOB 23:19 → JERBED 23:19 → INTOOBSV 23:19 → JERBED 09-19 12:51 → J8W 09-19 15:46
PROVIDERS: ADMIT Internal Medicine; ATTEND Family Medicine
DX: I25.10 Atherosclerotic heart disease of native coronary artery without angina pectoris (principal); I11.9 Hypertensive heart disease without heart failure; G62.9 Polyneuropathy, unspecified; I35.0 Nonrheumatic aortic (valve) stenosis; M50.10 Cervical disc disorder with radiculopathy, unspecified cervical region; R55 Syncope and collapse
CPT/HCPCS: 0241U-QW; 36415; 70450-TC; 71045-TC-FY; 72125-TC; 72141-TC; 80053; 81003; 82607; 82784; 82787; 82962; 83036; 83735; 83883; 84443; 84484; 85025; 85610; 85730; 87086; 93005; 93010; 93306-TC; 93880-TC; 97116-GP; 97161-GP; 99285-25; C9803-CS; G0378; U0003; U0005

== ENCOUNTER 2023-02-02 17:05 | Inpatient (IN) | payer BC ==
[2023-02-02 18:41] LABS: BASO % 0.3 % (0-2.0); EOS % 0.7 % (0-4.5); HEMATOCRIT 37.4 % (32.4-45.2); HEMOGLOBIN 12.6 GM/dL (10.7-15.3); MCH 29.4 pg (25.7-33.7); MCHC 33.7 g/dl (32.0-36.0); MEAN CELL VOLUME 87.4 fl (80-96); MEAN PLT VOLUME 9.1 fl (7.5-11.1); MONO % 4.3 % (3.8-10.2); NEUT % 71.7 % (42.8-82.8); PLATELET COUNT 384 10^3/uL (134-434); RBC 4.28 M/mm3 (3.60-5.2); RDW 20.5 % (11.6-15.6); WHITE BLOOD COUNT 9.5 K/mm3 (4.0-10.0)
[2023-02-02 18:51] LABS: INR 1.57 (0.83-1.09); PROTHROMBIN TIME (PATIENT) 18.1 SEC (9.7-13.0)
[2023-02-02 18:52] LABS: EPI CELLS 3 /uL (0-25.1); HYALINE CASTS 0 /uL (0-3.1); URINE APPEARANCE CLEAR; URINE BACTERIA 3206 /uL (0-1359); URINE BILIRUBIN NEGATIVE (NEGATIVE); URINE COLOR YELLOW; URINE GLUCOSE (UA) NEGATIVE (NEGATIVE); URINE KETONE NEGATIVE (NEGATIVE); URINE LEUK ESTERASE 2+ (NEGATIVE); URINE NITRITE NEGATIVE (NEGATIVE); URINE PROTEIN TRACE (NEGATIVE); URINE RBC 11 /uL (0-23.9); URINE UROBILINOGEN 0.2 mg/dL (0.2-1.0); URINE WBC 185 /uL (0-25.8)
[2023-02-02 18:53] LABS: ACTIVATED PTT 30.3 SECONDS (25.2-36.5)
[2023-02-02] MEDS ORDERED: SODIUM CHLORIDE 0.9% 500 ML INFUS.BAG IV ONE ×2 (18:59→19:32)
[2023-02-02 19:07] LABS: LACTIC ACID 3.8 mmol/L (0.4-2.0)
[2023-02-02 19:10] LABS: POTASSIUM 3.2 mmol/L (3.5-5.1)
[2023-02-02 19:13] LABS: BLOOD UREA NITROGEN 14.1 mg/dL (7-18); CALCIUM 8.8 mg/dL (8.5-10.1)
[2023-02-02 19:14] LABS: ALBUMIN 2.9 g/dl (3.4-5.0)
[2023-02-02 19:18] LABS: BILIRUBIN,TOTAL 0.5 mg/dL (0.2-1); TOT PROT 7.4 g/dl (6.4-8.2)
[2023-02-02] MEDS ORDERED: CEFTRIAXONE 1 GM/50 ML BAG ONE (19:28)
[2023-02-02 20:14] LABS: ANISOCYTOSIS 1+; MACROCYTOSIS 1+; TEAR DROP CELLS 1+
[2023-02-02 21:55] LABS: LACTIC ACID 2.5 mmol/L (0.4-2.0)
[2023-02-02] MEDS ORDERED: AZITHROMYCIN IVPB 500 MG in DEXTROSE 5%-WATER - 250 ML IVPB ONE (22:13)
[2023-02-02] MEDS ORDERED: AZITHROMYCIN IVPB 500 MG/250 ML BAG IVPB ONE (22:36)
[2023-02-03] MEDS ORDERED: POTASSIUM CHLORIDE ORAL LIQUID 20 MEQ/15 ML PO ONE ×2 (03:30→11:06)
[2023-02-03] MEDS: INSULIN SLIDING SCALE (NOVOLOG) 1 VIAL SQ SCH ×4 (07:10→21:58)
[2023-02-03 09:06] LABS: HEMATOCRIT 35.6 % (32.4-45.2); HEMOGLOBIN 11.5 GM/dL (10.7-15.3); MCH 28.3 pg (25.7-33.7); MCHC 32.4 g/dl (32.0-36.0); MEAN CELL VOLUME 87.4 fl (80-96); MEAN PLT VOLUME 9.4 fl (7.5-11.1); PLATELET COUNT 346 10^3/uL (134-434); RBC 4.07 M/mm3 (3.60-5.2); WHITE BLOOD COUNT 15.5 K/mm3 (4.0-10.0)
[2023-02-03 09:27] LABS: POTASSIUM 3.2 mmol/L (3.5-5.1)
[2023-02-03 09:29] LABS: CALCIUM 8.6 mg/dL (8.5-10.1)
[2023-02-03 09:30] LABS: BLOOD UREA NITROGEN 17.8 mg/dL (7-18); MAGNESIUM 1.1 mg/dL (1.8-2.4)
[2023-02-03 09:33] LABS: CREATININE 0.9 mg/dL (0.55-1.3); PHOSPHOROUS 3.2 mg/dL (2.5-4.9)
[2023-02-03 09:34] LABS: BILIRUBIN,TOTAL 0.4 mg/dL (0.2-1); TOT PROT 7.5 g/dl (6.4-8.2)
[2023-02-03] MEDS: APIXABAN 2.5 MG TABLET PO SCH ×2 (10:08→21:54)
[2023-02-03] MEDS: LEVOTHYROXINE NA 112 MCG TABLET (FP) PO SCH (10:08)
[2023-02-03] MEDS: AMIODARONE HCL 200 MG TABLET PO SCH (10:09)
[2023-02-03] MEDS: CEFTRIAXONE 1 GM in DEXTROSE 5%-WATER - 50 ML IVPB SCH (11:48)
[2023-02-03 12:59] LABS: LACTIC ACID 2.1 mmol/L (0.4-2.0)
[2023-02-03] MEDS ORDERED: ONDANSETRON 4 MG/2 ML VIAL IVPUSH PRN (13:25)
[2023-02-03] MEDS: SODIUM CHLORIDE 0.45%/POT 20 MEQ/1,000 ML INFUS.BAG IV SCH (15:42)
[2023-02-03] MEDS: ATORVASTATIN CA 40 MG TABLET (FP) PO SCH (21:54)
[2023-02-04] MEDS ORDERED: MAGNESIUM SULF 50% (8.12 MEQ/2 ML-1 GM VIAL) IVPB ONE ×2 (00:26→08:45)
[2023-02-04] MEDS: LEVOTHYROXINE NA 112 MCG TABLET (FP) PO SCH (06:14)
[2023-02-04] MEDS: INSULIN SLIDING SCALE (NOVOLOG) 1 VIAL SQ SCH ×4 (06:15→21:46)
[2023-02-04 07:28] LABS: BASO % 0.1 % (0-2.0); EOS % 0.1 % (0-4.5); HEMATOCRIT 34.5 % (32.4-45.2); HEMOGLOBIN 11.3 GM/dL (10.7-15.3); MCH 28.6 pg (25.7-33.7); MCHC 32.7 g/dl (32.0-36.0); MEAN CELL VOLUME 87.3 fl (80-96); MEAN PLT VOLUME 8.9 fl (7.5-11.1); MONO % 5.2 % (3.8-10.2); NEUT % 84.6 % (42.8-82.8); PLATELET COUNT 309 10^3/uL (134-434); RBC 3.95 M/mm3 (3.60-5.2); RDW 20.2 % (11.6-15.6); WHITE BLOOD COUNT 11.4 K/mm3 (4.0-10.0)
[2023-02-04 07:37] LABS: POTASSIUM 3.2 mmol/L (3.5-5.1)
[2023-02-04 07:40] LABS: BLOOD UREA NITROGEN 11.5 mg/dL (7-18); CALCIUM 8.4 mg/dL (8.5-10.1)
[2023-02-04 07:41] LABS: ALBUMIN 2.7 g/dl (3.4-5.0); MAGNESIUM 1.7 mg/dL (1.8-2.4)
[2023-02-04 07:44] LABS: CREATININE 0.7 mg/dL (0.55-1.3)
[2023-02-04 07:45] LABS: BILIRUBIN,TOTAL 0.5 mg/dL (0.2-1); TOT PROT 6.9 g/dl (6.4-8.2)
[2023-02-04] MEDS ORDERED: POTASSIUM CHLORIDE ORAL LIQUID 20 MEQ/15 ML PO ONE (09:00)
[2023-02-04] MEDS: APIXABAN 2.5 MG TABLET PO SCH ×2 (11:02→21:46)
[2023-02-04] MEDS: MAGNESIUM OXIDE 400 MG TABLET (FP) PO SCH ×2 (11:02→21:46)
[2023-02-04] MEDS: PANTOPRAZOLE 40 MG TABLET PO SCH (11:02)
[2023-02-04] MEDS: CEFTRIAXONE 1 GM in DEXTROSE 5%-WATER - 50 ML IVPB SCH (11:03)
[2023-02-04] MEDS: POLYETHYLENE GLYCOL (HEALTHYLAX) 3350 17 GM PACKET PO SCH ×2 (11:09→21:46)
[2023-02-04] MEDS: AMIODARONE HCL 200 MG TABLET PO SCH (11:11)
[2023-02-04] MEDS: SODIUM CHLORIDE 0.45%/POT 20 MEQ/1,000 ML INFUS.BAG IV SCH (17:59)
[2023-02-04] MEDS: ATORVASTATIN CA 40 MG TABLET (FP) PO SCH (21:46)
[2023-02-05] MEDS: INSULIN SLIDING SCALE (NOVOLOG) 1 VIAL SQ SCH ×4 (06:35→22:23)
[2023-02-05] MEDS: LEVOTHYROXINE NA 112 MCG TABLET (FP) PO SCH (06:41)
[2023-02-05] MEDS ORDERED: INSULIN (NOVOLOG) ASPART 100 UNITS/ML 10ML VIAL ONE (07:30)
[2023-02-05] MEDS ORDERED: INSULIN (LEVEMIR) 100 UNITS/ML UNITS SQ ONE (07:30)
[2023-02-05 09:01] LABS: BASO % 0.2 % (0-2.0); EOS % 0.3 % (0-4.5); HEMOGLOBIN 10.3 GM/dL (10.7-15.3); LYMPH % 11.7 % (8-40); MCH 28.3 pg (25.7-33.7); MCHC 32.1 g/dl (32.0-36.0); MEAN CELL VOLUME 88.1 fl (80-96); MEAN PLT VOLUME 9.6 fl (7.5-11.1); MONO % 6.9 % (3.8-10.2); NEUT % 80.9 % (42.8-82.8); PLATELET COUNT 291 10^3/uL (134-434); RBC 3.63 M/mm3 (3.60-5.2); RDW 20.5 % (11.6-15.6); WHITE BLOOD COUNT 10.2 K/mm3 (4.0-10.0)
[2023-02-05 09:28] LABS: POTASSIUM 3.6 mmol/L (3.5-5.1)
[2023-02-05 09:31] LABS: CALCIUM 8.4 mg/dL (8.5-10.1)
[2023-02-05 09:32] LABS: ALBUMIN 2.6 g/dl (3.4-5.0); BLOOD UREA NITROGEN 9.2 mg/dL (7-18)
[2023-02-05 09:35] LABS: CREATININE 0.6 mg/dL (0.55-1.3)
[2023-02-05 09:37] LABS: BILIRUBIN,TOTAL 0.3 mg/dL (0.2-1); TOT PROT 6.8 g/dl (6.4-8.2)
[2023-02-05] MEDS: POLYETHYLENE GLYCOL (HEALTHYLAX) 3350 17 GM PACKET PO SCH ×2 (10:41→22:20)
[2023-02-05] MEDS: CEFTRIAXONE 1 GM in DEXTROSE 5%-WATER - 50 ML IVPB SCH (10:41)
[2023-02-05] MEDS: PANTOPRAZOLE 40 MG TABLET PO SCH (10:42)
[2023-02-05] MEDS: AMIODARONE HCL 200 MG TABLET PO SCH (10:42)
[2023-02-05] MEDS: MAGNESIUM OXIDE 400 MG TABLET (FP) PO SCH ×2 (10:42→22:23)
[2023-02-05] MEDS: APIXABAN 2.5 MG TABLET PO SCH ×2 (10:42→22:20)
[2023-02-05] MEDS: SODIUM CHLORIDE 0.45%/POT 20 MEQ/1,000 ML INFUS.BAG IV SCH (14:09)
[2023-02-05] MEDS: MULTIVITAMINS (DAILY MVI) TABLET (FP) PO SCH (14:09)
[2023-02-05] MEDS: ASCORBIC ACID 250 MG TABLET (FP) PO SCH (14:09)
[2023-02-05] MEDS: ATORVASTATIN CA 40 MG TABLET (FP) PO SCH (22:20)
[2023-02-06] MEDS: SODIUM CHLORIDE 0.45%/POT 20 MEQ/1,000 ML INFUS.BAG IV SCH ×3 (02:15→23:38)
[2023-02-06] MEDS: LEVOTHYROXINE NA 112 MCG TABLET (FP) PO SCH (06:35)
[2023-02-06] MEDS: INSULIN SLIDING SCALE (NOVOLOG) 1 VIAL SQ SCH ×4 (06:35→22:09)
[2023-02-06] MEDS: AMIODARONE HCL 200 MG TABLET PO SCH (10:44)
[2023-02-06] MEDS: LOSARTAN POTASSIUM 50 MG TABLET PO SCH (10:45)
[2023-02-06] MEDS: PANTOPRAZOLE 40 MG TABLET PO SCH (10:45)
[2023-02-06] MEDS: ASCORBIC ACID 250 MG TABLET (FP) PO SCH (10:45)
[2023-02-06] MEDS: APIXABAN 2.5 MG TABLET PO SCH ×2 (10:45→21:38)
[2023-02-06] MEDS: CEFTRIAXONE 1 GM in DEXTROSE 5%-WATER - 50 ML IVPB SCH (10:45)
[2023-02-06] MEDS: MAGNESIUM OXIDE 400 MG TABLET (FP) PO SCH ×2 (10:45→21:38)
[2023-02-06] MEDS: POLYETHYLENE GLYCOL (HEALTHYLAX) 3350 17 GM PACKET PO SCH ×2 (10:46→21:38)
[2023-02-06] MEDS: MULTIVITAMINS (DAILY MVI) TABLET (FP) PO SCH (10:52)
[2023-02-06] MEDS: ATORVASTATIN CA 40 MG TABLET (FP) PO SCH (21:38)
[2023-02-07] MEDS: INSULIN SLIDING SCALE (NOVOLOG) 1 VIAL SQ SCH ×4 (06:23→21:56)
[2023-02-07] MEDS: LEVOTHYROXINE NA 112 MCG TABLET (FP) PO SCH (06:26)
[2023-02-07] MEDS: CEFTRIAXONE 1 GM in DEXTROSE 5%-WATER - 50 ML IVPB SCH (10:24)
[2023-02-07] MEDS: AMIODARONE HCL 200 MG TABLET PO SCH (10:25)
[2023-02-07] MEDS: POLYETHYLENE GLYCOL (HEALTHYLAX) 3350 17 GM PACKET PO SCH ×2 (10:25→21:09)
[2023-02-07] MEDS: ASCORBIC ACID 250 MG TABLET (FP) PO SCH (10:25)
[2023-02-07] MEDS: APIXABAN 2.5 MG TABLET PO SCH ×2 (10:25→21:09)
[2023-02-07] MEDS: PANTOPRAZOLE 40 MG TABLET PO SCH (10:25)
[2023-02-07] MEDS: LOSARTAN POTASSIUM 50 MG TABLET PO SCH (10:31)
[2023-02-07] MEDS: MAGNESIUM OXIDE 400 MG TABLET (FP) PO SCH ×2 (11:16→21:09)
[2023-02-07] MEDS: MULTIVITAMINS (DAILY MVI) TABLET (FP) PO SCH (11:42)
[2023-02-07] MEDS: SODIUM CHLORIDE 0.45%/POT 20 MEQ/1,000 ML INFUS.BAG IV SCH (13:08)
[2023-02-07] MEDS: ATORVASTATIN CA 40 MG TABLET (FP) PO SCH (21:09)
[2023-02-07] MEDS ORDERED: INSULIN (NOVOLOG) ASPART 100 UNITS/ML 10ML VIAL ONE (21:54)
[2023-02-08 02:56] VITALS: RESP 18
[2023-02-08] MEDS: INSULIN SLIDING SCALE (NOVOLOG) 1 VIAL SQ SCH ×4 (06:06→22:09)
[2023-02-08] MEDS: SODIUM CHLORIDE 0.45%/POT 20 MEQ/1,000 ML INFUS.BAG IV SCH (06:07)
[2023-02-08] MEDS: LEVOTHYROXINE NA 112 MCG TABLET (FP) PO SCH (06:08)
[2023-02-08] MEDS: CEFTRIAXONE 1 GM in DEXTROSE 5%-WATER - 50 ML IVPB SCH (10:12)
[2023-02-08] MEDS: POLYETHYLENE GLYCOL (HEALTHYLAX) 3350 17 GM PACKET PO SCH ×2 (10:13→22:09)
[2023-02-08] MEDS: MAGNESIUM OXIDE 400 MG TABLET (FP) PO SCH ×2 (10:14→22:09)
[2023-02-08] MEDS: ASCORBIC ACID 250 MG TABLET (FP) PO SCH (10:14)
[2023-02-08] MEDS: LOSARTAN POTASSIUM 50 MG TABLET PO SCH (10:14)
[2023-02-08] MEDS: PANTOPRAZOLE 40 MG TABLET PO SCH (10:14)
[2023-02-08] MEDS: MULTIVITAMINS (DAILY MVI) TABLET (FP) PO SCH (10:14)
[2023-02-08] MEDS: AMIODARONE HCL 200 MG TABLET PO SCH (10:15)
[2023-02-08] MEDS: APIXABAN 2.5 MG TABLET PO SCH ×2 (10:15→22:09)
[2023-02-08 10:23] LABS: BASO % 0.5 % (0-2.0); EOS % 2.7 % (0-4.5); HEMATOCRIT 28.8 % (32.4-45.2); HEMOGLOBIN 9.5 GM/dL (10.7-15.3); MCH 29.1 pg (25.7-33.7); MCHC 33.1 g/dl (32.0-36.0); MEAN CELL VOLUME 87.9 fl (80-96); MEAN PLT VOLUME 8.6 fl (7.5-11.1); MONO % 9.4 % (3.8-10.2); NEUT % 60.4 % (42.8-82.8); PLATELET COUNT 263 10^3/uL (134-434); RBC 3.28 M/mm3 (3.60-5.2); RDW 20.5 % (11.6-15.6); WHITE BLOOD COUNT 5.6 K/mm3 (4.0-10.0)
[2023-02-08 11:16] LABS: ANISOCYTOSIS 1+; MACROCYTOSIS 0; OVALOCYTE 1+
[2023-02-08 16:44] LABS: BASO % 0.2 % (0-2.0); EOS % 3.2 % (0-4.5); HEMOGLOBIN 9.9 GM/dL (10.7-15.3); LYMPH % 31.2 % (8-40); MCH 29.3 pg (25.7-33.7); MEAN CELL VOLUME 86.3 fl (80-96); MEAN PLT VOLUME 8.6 fl (7.5-11.1); MONO % 10.3 % (3.8-10.2); NEUT % 55.1 % (42.8-82.8); PLATELET COUNT 233 10^3/uL (134-434); RBC 3.36 M/mm3 (3.60-5.2); RDW 20.4 % (11.6-15.6); WHITE BLOOD COUNT 4.7 K/mm3 (4.0-10.0)
[2023-02-08 17:06] LABS: POTASSIUM 3.5 mmol/L (3.5-5.1)
[2023-02-08 17:07] LABS: CALCIUM 8.4 mg/dL (8.5-10.1)
[2023-02-08 17:09] LABS: ALBUMIN 2.5 g/dl (3.4-5.0); BLOOD UREA NITROGEN 6.5 mg/dL (7-18)
[2023-02-08 17:12] LABS: CREATININE 0.6 mg/dL (0.55-1.3)
[2023-02-08 17:13] LABS: BILIRUBIN,TOTAL 0.3 mg/dL (0.2-1); TOT PROT 6.3 g/dl (6.4-8.2)
[2023-02-08] MEDS ORDERED: IRON SUCROSE INJECTION 200 MG in SODIUM CHLORIDE 90 ML IVPB ONE (22:00)
[2023-02-08] MEDS: ATORVASTATIN CA 40 MG TABLET (FP) PO SCH (22:09)
[2023-02-08] MEDS ORDERED: INSULIN (NOVOLOG) ASPART 100 UNITS/ML 10ML VIAL ONE (22:18)
[2023-02-09] MEDS: LEVOTHYROXINE NA 112 MCG TABLET (FP) PO SCH (07:03)
[2023-02-09] MEDS: INSULIN SLIDING SCALE (NOVOLOG) 1 VIAL SQ SCH ×4 (07:03→22:20)
[2023-02-09 07:37] LABS: BASO % 0.5 % (0-2.0); EOS % 2.8 % (0-4.5); HEMATOCRIT 27.5 % (32.4-45.2); HEMOGLOBIN 9.3 GM/dL (10.7-15.3); LYMPH % 28.8 % (8-40); MCH 29.6 pg (25.7-33.7); MCHC 33.6 g/dl (32.0-36.0); MONO % 10.1 % (3.8-10.2); NEUT % 57.8 % (42.8-82.8); PLATELET COUNT 253 10^3/uL (134-434); RBC 3.13 M/mm3 (3.60-5.2); WHITE BLOOD COUNT 5.5 K/mm3 (4.0-10.0)
[2023-02-09] MEDS ORDERED: IRON SUCROSE INJECTION 200 MG in SODIUM CHLORIDE 90 ML IVPB ONE (08:36)
[2023-02-09] MEDS: PANTOPRAZOLE 40 MG TABLET PO SCH (11:04)
[2023-02-09] MEDS: CEFTRIAXONE 1 GM in DEXTROSE 5%-WATER - 50 ML IVPB SCH (11:04)
[2023-02-09] MEDS: MULTIVITAMINS (DAILY MVI) TABLET (FP) PO SCH (11:08)
[2023-02-09] MEDS: APIXABAN 2.5 MG TABLET PO SCH ×2 (11:08→22:12)
[2023-02-09] MEDS: LOSARTAN POTASSIUM 50 MG TABLET PO SCH (11:08)
[2023-02-09] MEDS: AMIODARONE HCL 200 MG TABLET PO SCH (11:08)
[2023-02-09] MEDS: ASCORBIC ACID 250 MG TABLET (FP) PO SCH (11:09)
[2023-02-09] MEDS: MAGNESIUM OXIDE 400 MG TABLET (FP) PO SCH ×2 (11:09→22:12)
[2023-02-09] MEDS: POLYETHYLENE GLYCOL (HEALTHYLAX) 3350 17 GM PACKET PO SCH ×2 (11:09→22:12)
[2023-02-09 21:25] VITALS: BMI 19.7
[2023-02-09] MEDS: ATORVASTATIN CA 40 MG TABLET (FP) PO SCH (22:12)
[2023-02-10 05:35] VITALS: BP 139/65; PULSE 76; TEMP 99.1
[2023-02-10] MEDS: INSULIN SLIDING SCALE (NOVOLOG) 1 VIAL SQ SCH (06:06)
[2023-02-10] MEDS: LEVOTHYROXINE NA 112 MCG TABLET (FP) PO SCH (06:15)
[2023-02-10] MEDS: CEFTRIAXONE 1 GM in DEXTROSE 5%-WATER - 50 ML IVPB SCH (11:01)
[2023-02-10] MEDS: APIXABAN 2.5 MG TABLET PO SCH (11:02)
[2023-02-10] MEDS: ASCORBIC ACID 250 MG TABLET (FP) PO SCH (11:02)
[2023-02-10] MEDS: LOSARTAN POTASSIUM 50 MG TABLET PO SCH (11:02)
[2023-02-10] MEDS: AMIODARONE HCL 200 MG TABLET PO SCH (11:02)
[2023-02-10] MEDS: PANTOPRAZOLE 40 MG TABLET PO SCH (11:02)
[2023-02-10] MEDS: MULTIVITAMINS (DAILY MVI) TABLET (FP) PO SCH (11:02)
[2023-02-10] MEDS: MAGNESIUM OXIDE 400 MG TABLET (FP) PO SCH (11:03)
[2023-02-10] MEDS: POLYETHYLENE GLYCOL (HEALTHYLAX) 3350 17 GM PACKET PO SCH (11:03)
== END 2023-02-10 12:39 | disposition home or self-care (01) | DRG 871 ==
LOC: JER 17:05 → JERBED 21:16 → J4W 02-03 03:09
PROVIDERS: ADMIT Internal Medicine; ATTEND Family Medicine
DX: A41.89 Other specified sepsis (principal); G93.41 Metabolic encephalopathy; J18.9 Pneumonia, unspecified organism; E87.20 Acidosis, unspecified; I24.8 Other forms of acute ischemic heart disease; I48.20 Chronic atrial fibrillation, unspecified; E03.9 Hypothyroidism, unspecified; E78.5 Hyperlipidemia, unspecified; I25.10 Atherosclerotic heart disease of native coronary artery without angina pectoris; R77.8 Other specified abnormalities of plasma proteins; F03.90 Unspecified dementia, unspecified severity, without behavioral disturbance, psychotic disturbance, mood disturbance, and anxiety; K21.9 Gastro-esophageal reflux disease without esophagitis; I44.0 Atrioventricular block, first degree; E11.65 Type 2 diabetes mellitus with hyperglycemia; R11.2 Nausea with vomiting, unspecified; I35.0 Nonrheumatic aortic (valve) stenosis; R94.31 Abnormal electrocardiogram [ECG] [EKG]; K76.0 Fatty (change of) liver, not elsewhere classified; Z86.73 Personal history of transient ischemic attack (TIA), and cerebral infarction without residual deficits; Z95.5 Presence of coronary angioplasty implant and graft
CPT/HCPCS: 0241U-QW; 36415; 70450-TC; 71045-TC-FY; 76705-TC; 80053; 81003; 82550; 82728; 82962; 83036; 83540; 83550; 83605; 83735; 84100; 84443; 84484; 85025; 85027; 85610; 85730; 86704; 86708; 86803; 87040; 87086; 87340; 87517; 93005; 93010; 97116-GP; 97162-GP; 99285-25; J1756; J3480

== ENCOUNTER 2023-04-04 11:28 | Observation (INO) | payer BC, OTHER ==
[2023-04-04] MEDS ORDERED: MAGNESIUM CITRATE 300 ML BOTTLE PO ONE ×2 (13:15→17:42)
[2023-04-04] MEDS ORDERED: SODIUM PHOSPHATE/NA BIPHOS 133 ML ENEMA PR ONE (13:17)
[2023-04-04 14:24] LABS: BASO % 0.6 % (0-2.0); EOS % 0.5 % (0-4.5); HEMOGLOBIN 11.5 GM/dL (10.7-15.3); LYMPH % 24.7 % (8-40); MCH 31.6 pg (25.7-33.7); MCHC 33.9 g/dl (32.0-36.0); MEAN CELL VOLUME 93.2 fl (80-96); MEAN PLT VOLUME 8.7 fl (7.5-11.1); NEUT % 70.2 % (42.8-82.8); PLATELET COUNT 357 10^3/uL (134-434); RBC 3.64 M/mm3 (3.60-5.2); RDW 17.4 % (11.6-15.6); WHITE BLOOD COUNT 7.7 K/mm3 (4.0-10.0)
[2023-04-04 14:30] LABS: INR 1.99 (0.83-1.09); PROTHROMBIN TIME (PATIENT) 22.9 SEC (9.7-13.0)
[2023-04-04 14:33] LABS: ACTIVATED PTT 33.5 SECONDS (25.2-36.5)
[2023-04-04 14:37] LABS: POTASSIUM 3.8 mmol/L (3.5-5.1)
[2023-04-04 14:38] LABS: CALCIUM 8.2 mg/dL (8.5-10.1)
[2023-04-04 14:39] LABS: ALBUMIN 2.2 g/dl (3.4-5.0); BLOOD UREA NITROGEN 16.8 mg/dL (7-18); MAGNESIUM 2.2 mg/dL (1.8-2.4)
[2023-04-04 14:42] LABS: CREATININE 1.1 mg/dL (0.55-1.3)
[2023-04-04 14:43] LABS: BILIRUBIN,TOTAL 0.3 mg/dL (0.2-1); TOT PROT 6.2 g/dl (6.4-8.2)
[2023-04-04 14:46] LABS: LACTIC ACID 2.5 mmol/L (0.4-2.0)
[2023-04-04] MEDS ORDERED: SODIUM CHLORIDE 500 ML IV STA (15:52)
[2023-04-04] MEDS ORDERED: POLYETHYLENE GLYCOL (HEALTHYLAX) 3350 17 GM PACKET ONE (17:59)
[2023-04-04] MEDS ORDERED: MAGNESIUM CITRATE 300 ML BOTTLE ONE (18:00)
[2023-04-04] MEDS: POLYETHYLENE GLYCOL (HEALTHYLAX) 3350 17 GM PACKET PO SCH (18:13)
[2023-04-04 18:58] LABS: LACTIC ACID 2.1 mmol/L (0.4-2.0)
[2023-04-04] MEDS ORDERED: SODIUM CHLORIDE 0.45% 1,000 ML IV SCH (22:45)
[2023-04-04] MEDS ORDERED: ACETAMINOPHEN 1000 MG/100 ML BAG IVPB PRN (22:47)
[2023-04-05] MEDS: INSULIN SLIDING SCALE (NOVOLOG) 1 VIAL SQ SCH ×4 (06:55→22:19)
[2023-04-05] MEDS ORDERED: LEVOTHYROXINE NA 112 MCG TABLET (FP) PO SCH (07:00)
[2023-04-05 08:18] LABS: POTASSIUM 3.6 mmol/L (3.5-5.1)
[2023-04-05 08:21] LABS: CALCIUM 8.4 mg/dL (8.5-10.1)
[2023-04-05 08:22] LABS: BLOOD UREA NITROGEN 16.7 mg/dL (7-18)
[2023-04-05 08:29] LABS: BASO % 0.4 % (0-2.0); EOS % 1.1 % (0-4.5); HEMATOCRIT 31.1 % (32.4-45.2); HEMOGLOBIN 10.7 GM/dL (10.7-15.3); LYMPH % 27.7 % (8-40); MCH 32.4 pg (25.7-33.7); MCHC 34.6 g/dl (32.0-36.0); MEAN CELL VOLUME 93.5 fl (80-96); MEAN PLT VOLUME 8.8 fl (7.5-11.1); NEUT % 65.8 % (42.8-82.8); PLATELET COUNT 304 10^3/uL (134-434); RBC 3.32 M/mm3 (3.60-5.2); RDW 17.8 % (11.6-15.6); WHITE BLOOD COUNT 7.5 K/mm3 (4.0-10.0)
[2023-04-05] MEDS: MAGNESIUM OXIDE 400 MG TABLET (FP) PO SCH ×2 (09:45→22:18)
[2023-04-05] MEDS: APIXABAN 2.5 MG TABLET PO SCH ×2 (09:46→22:18)
[2023-04-05] MEDS: PANTOPRAZOLE 40 MG TABLET PO SCH (09:46)
[2023-04-05] MEDS: metoPROLOL SUCCINATE 25 MG TAB.SR.24H (FP) PO SCH (09:46)
[2023-04-05] MEDS: MULTIVITAMINS (DAILY MVI) TABLET (FP) PO SCH (09:46)
[2023-04-05] MEDS: LOSARTAN POTASSIUM 50 MG TABLET PO SCH (09:46)
[2023-04-05] MEDS: POLYETHYLENE GLYCOL (HEALTHYLAX) 3350 17 GM PACKET PO SCH ×3 (09:46→22:18)
[2023-04-05] MEDS: PIPERACILLIN/TAZOB 3.375 GM 3.375 GM in DEXTROSE 5%-WATER - 50 ML IVPB SCH ×2 (09:46→17:19)
[2023-04-05] MEDS ORDERED: amLODIPine BESYLATE 5 MG TABLET (FP) PO SCH (10:00)
[2023-04-05] MEDS ORDERED: POLYETHYLENE GLYCOL (HEALTHYLAX) 3350 17 GM PACKET PO SCH (10:00)
[2023-04-05] MEDS ORDERED: LEVOTHYROXINE SODIUM 100 MCG 5 ML VIAL IVPUSH SCH (11:45)
[2023-04-05] MEDS: LEVOTHYROXINE SODIUM 100 MCG 5 ML VIAL IVPUSH SCH (11:59)
[2023-04-05] MEDS ORDERED: POTASSIUM CHLORIDE ORAL LIQUID 20 MEQ/15 ML PO ONE (15:30)
[2023-04-05] MEDS: FUROSEMIDE 40 MG TABLET (FP) PO SCH (17:19)
[2023-04-05] MEDS: ATORVASTATIN CA 40 MG TABLET (FP) PO SCH (22:18)
[2023-04-05] MEDS ORDERED: ACETAMINOPHEN 325 MG TABLET (FP) PO PRN (22:37)
[2023-04-06] MEDS: PIPERACILLIN/TAZOB 3.375 GM 3.375 GM in DEXTROSE 5%-WATER - 50 ML IVPB SCH (01:49)
[2023-04-06 09:30] LABS: BASO % 0.7 % (0-2.0); EOS % 1.9 % (0-4.5); HEMOGLOBIN 10.6 GM/dL (10.7-15.3); LYMPH % 30.1 % (8-40); MCH 30.9 pg (25.7-33.7); MCHC 32.1 g/dl (32.0-36.0); MEAN CELL VOLUME 96.2 fl (80-96); MEAN PLT VOLUME 8.6 fl (7.5-11.1); MONO % 5.1 % (3.8-10.2); NEUT % 62.2 % (42.8-82.8); PLATELET COUNT 315 10^3/uL (134-434); RBC 3.43 M/mm3 (3.60-5.2); RDW 17.9 % (11.6-15.6); WHITE BLOOD COUNT 7.1 K/mm3 (4.0-10.0)
[2023-04-06 10:01] LABS: BLOOD UREA NITROGEN 17.8 mg/dL (7-18); CALCIUM 8.6 mg/dL (8.5-10.1)
[2023-04-06 10:04] LABS: CREATININE 1.2 mg/dL (0.55-1.3)
[2023-04-06 10:06] LABS: BILIRUBIN,TOTAL 0.5 mg/dL (0.2-1); TOT PROT 5.6 g/dl (6.4-8.2)
[2023-04-06] MEDS ORDERED: PIPERACILLIN/TAZOB 3.375 GM 3.375 GM in DEXTROSE 5%-WATER - 50 ML IVPB SCH (10:45)
[2023-04-06] MEDS: PANTOPRAZOLE 40 MG TABLET PO SCH (11:33)
[2023-04-06] MEDS: MULTIVITAMINS (DAILY MVI) TABLET (FP) PO SCH (11:33)
[2023-04-06] MEDS: APIXABAN 2.5 MG TABLET PO SCH ×2 (11:33→21:35)
[2023-04-06] MEDS: MAGNESIUM OXIDE 400 MG TABLET (FP) PO SCH ×2 (11:34→21:35)
[2023-04-06] MEDS: LEVOTHYROXINE SODIUM 100 MCG 5 ML VIAL IVPUSH SCH (11:34)
[2023-04-06] MEDS: POLYETHYLENE GLYCOL (HEALTHYLAX) 3350 17 GM PACKET PO SCH ×2 (11:35→21:36)
[2023-04-06] MEDS: FUROSEMIDE 40 MG TABLET (FP) PO SCH (11:57)
[2023-04-06] MEDS: LOSARTAN POTASSIUM 50 MG TABLET PO SCH (11:57)
[2023-04-06] MEDS: metoPROLOL SUCCINATE 25 MG TAB.SR.24H (FP) PO SCH (11:58)
[2023-04-06] MEDS: INSULIN SLIDING SCALE (NOVOLOG) 1 VIAL SQ SCH ×2 (13:08→17:08)
[2023-04-06 16:25] VITALS: BMI 22.8
[2023-04-06] MEDS: AMINO ACIDS/PROTEIN HYDROLYS 30 ML LIQUID.PKT PO SCH (17:23)
[2023-04-06] MEDS: ATORVASTATIN CA 40 MG TABLET (FP) PO SCH (21:36)
[2023-04-07] MEDS: INSULIN SLIDING SCALE (NOVOLOG) 1 VIAL SQ SCH ×6 (06:10→21:30)
[2023-04-07] MEDS: PIPERACILLIN/TAZOB 3.375 GM 3.375 GM in DEXTROSE 5%-WATER - 50 ML IVPB SCH (07:20)
[2023-04-07] MEDS: AMINO ACIDS/PROTEIN HYDROLYS 30 ML LIQUID.PKT PO SCH ×2 (08:57→16:35)
[2023-04-07 09:02] LABS: BASO % 0.9 % (0-2.0); EOS % 2.6 % (0-4.5); HEMATOCRIT 29.1 % (32.4-45.2); HEMOGLOBIN 9.9 GM/dL (10.7-15.3); LYMPH % 29.8 % (8-40); MCH 31.6 pg (25.7-33.7); MEAN CELL VOLUME 93.1 fl (80-96); MEAN PLT VOLUME 8.4 fl (7.5-11.1); MONO % 5.1 % (3.8-10.2); NEUT % 61.6 % (42.8-82.8); PLATELET COUNT 282 10^3/uL (134-434); RBC 3.13 M/mm3 (3.60-5.2); RDW 17.7 % (11.6-15.6)
[2023-04-07 09:15] LABS: POTASSIUM 3.7 mmol/L (3.5-5.1)
[2023-04-07 09:21] LABS: CALCIUM 7.9 mg/dL (8.5-10.1)
[2023-04-07 09:22] LABS: BLOOD UREA NITROGEN 20.2 mg/dL (7-18); MAGNESIUM 2.5 mg/dL (1.8-2.4)
[2023-04-07 09:24] LABS: PHOSPHOROUS 2.7 mg/dL (2.5-4.9)
[2023-04-07 09:25] LABS: BILIRUBIN,TOTAL 0.2 mg/dL (0.2-1); CREATININE 1.1 mg/dL (0.55-1.3); TOT PROT 5.4 g/dl (6.4-8.2)
[2023-04-07] MEDS: metoPROLOL SUCCINATE 25 MG TAB.SR.24H (FP) PO SCH ×2 (10:16→21:29)
[2023-04-07] MEDS: MAGNESIUM OXIDE 400 MG TABLET (FP) PO SCH (10:16)
[2023-04-07] MEDS: APIXABAN 2.5 MG TABLET PO SCH ×2 (10:16→21:29)
[2023-04-07] MEDS: PANTOPRAZOLE 40 MG TABLET PO SCH (10:16)
[2023-04-07] MEDS: POLYETHYLENE GLYCOL (HEALTHYLAX) 3350 17 GM PACKET PO SCH ×2 (10:16→21:30)
[2023-04-07] MEDS: MULTIVITAMINS (DAILY MVI) TABLET (FP) PO SCH (10:16)
[2023-04-07] MEDS: FUROSEMIDE 40 MG TABLET (FP) PO SCH (10:16)
[2023-04-07] MEDS: LEVOTHYROXINE SODIUM 100 MCG 5 ML VIAL IVPUSH SCH (10:16)
[2023-04-07] MEDS: ASCORBIC ACID 250 MG TABLET (FP) PO SCH (10:16)
[2023-04-07] MEDS: LOSARTAN POTASSIUM 50 MG TABLET PO SCH (10:16)
[2023-04-07] MEDS: LIOTHYRONINE SODIUM 25 MCG TABLET PO SCH (10:20)
[2023-04-07] MEDS ORDERED: BISACODYL 10 MG SUPP.RECT PR ONE (13:45)
[2023-04-07] MEDS: DOCUSATE SODIUM 100 MG CAPSULE (FP) PO SCH ×2 (14:26→21:29)
[2023-04-07] MEDS: ATORVASTATIN CA 40 MG TABLET (FP) PO SCH (21:30)
[2023-04-08 02:58] VITALS: RESP 18
[2023-04-08] MEDS: INSULIN SLIDING SCALE (NOVOLOG) 1 VIAL SQ SCH ×4 (06:28→21:32)
[2023-04-08] MEDS: POLYETHYLENE GLYCOL (HEALTHYLAX) 3350 17 GM PACKET PO SCH ×2 (09:17→21:32)
[2023-04-08] MEDS: AMINO ACIDS/PROTEIN HYDROLYS 30 ML LIQUID.PKT PO SCH ×2 (09:17→17:04)
[2023-04-08] MEDS: LIOTHYRONINE SODIUM 25 MCG TABLET PO SCH (09:17)
[2023-04-08] MEDS: LEVOTHYROXINE SODIUM 100 MCG 5 ML VIAL IVPUSH SCH (09:17)
[2023-04-08] MEDS: LOSARTAN POTASSIUM 50 MG TABLET PO SCH (09:17)
[2023-04-08] MEDS: PANTOPRAZOLE 40 MG TABLET PO SCH (09:18)
[2023-04-08] MEDS: MULTIVITAMINS (DAILY MVI) TABLET (FP) PO SCH (09:18)
[2023-04-08] MEDS: metoPROLOL SUCCINATE 25 MG TAB.SR.24H (FP) PO SCH ×2 (09:18→21:31)
[2023-04-08] MEDS: ASCORBIC ACID 250 MG TABLET (FP) PO SCH (09:18)
[2023-04-08] MEDS: FUROSEMIDE 40 MG TABLET (FP) PO SCH (09:18)
[2023-04-08] MEDS: DOCUSATE SODIUM 100 MG CAPSULE (FP) PO SCH ×2 (09:18→21:31)
[2023-04-08] MEDS: APIXABAN 2.5 MG TABLET PO SCH ×2 (09:19→21:31)
[2023-04-08 10:43] LABS: BASO % 0.6 % (0-2.0); EOS % 2.3 % (0-4.5); HEMATOCRIT 27.8 % (32.4-45.2); HEMOGLOBIN 9.6 GM/dL (10.7-15.3); LYMPH % 39.8 % (8-40); MCH 32.1 pg (25.7-33.7); MCHC 34.4 g/dl (32.0-36.0); MEAN CELL VOLUME 93.3 fl (80-96); MEAN PLT VOLUME 8.4 fl (7.5-11.1); MONO % 5.6 % (3.8-10.2); NEUT % 51.7 % (42.8-82.8); PLATELET COUNT 280 10^3/uL (134-434); RBC 2.98 M/mm3 (3.60-5.2); RDW 17.9 % (11.6-15.6); WHITE BLOOD COUNT 5.4 K/mm3 (4.0-10.0)
[2023-04-08] MEDS ORDERED: BISACODYL 10 MG SUPP.RECT PR ONE (11:00)
[2023-04-08 12:12] LABS: POTASSIUM 3.4 mmol/L (3.5-5.1)
[2023-04-08 12:21] LABS: ALBUMIN 2.1 g/dl (3.4-5.0); BLOOD UREA NITROGEN 24.5 mg/dL (7-18); CALCIUM 8.1 mg/dL (8.5-10.1); MAGNESIUM 2.5 mg/dL (1.8-2.4)
[2023-04-08 12:24] LABS: PHOSPHOROUS 2.9 mg/dL (2.5-4.9)
[2023-04-08 12:25] LABS: CREATININE 1.1 mg/dL (0.55-1.3)
[2023-04-08 12:26] LABS: BILIRUBIN,TOTAL 0.3 mg/dL (0.2-1); TOT PROT 5.6 g/dl (6.4-8.2)
[2023-04-08] MEDS ORDERED: POTASSIUM CHLORIDE ORAL LIQUID 20 MEQ/15 ML PO ONE (13:22)
[2023-04-08] MEDS: ATORVASTATIN CA 40 MG TABLET (FP) PO SCH (21:31)
[2023-04-09] MEDS: INSULIN SLIDING SCALE (NOVOLOG) 1 VIAL SQ SCH ×4 (06:11→21:58)
[2023-04-09] MEDS: LEVOTHYROXINE SODIUM 100 MCG 5 ML VIAL IVPUSH SCH (09:19)
[2023-04-09] MEDS: POLYETHYLENE GLYCOL (HEALTHYLAX) 3350 17 GM PACKET PO SCH ×2 (09:19→21:57)
[2023-04-09] MEDS: FUROSEMIDE 40 MG TABLET (FP) PO SCH (09:20)
[2023-04-09] MEDS: MULTIVITAMINS (DAILY MVI) TABLET (FP) PO SCH (09:20)
[2023-04-09] MEDS: ASCORBIC ACID 250 MG TABLET (FP) PO SCH (09:20)
[2023-04-09] MEDS: DOCUSATE SODIUM 100 MG CAPSULE (FP) PO SCH (09:20)
[2023-04-09] MEDS: LIOTHYRONINE SODIUM 25 MCG TABLET PO SCH (09:20)
[2023-04-09] MEDS: APIXABAN 2.5 MG TABLET PO SCH ×2 (09:20→21:57)
[2023-04-09] MEDS: LOSARTAN POTASSIUM 50 MG TABLET PO SCH (09:20)
[2023-04-09] MEDS: PANTOPRAZOLE 40 MG TABLET PO SCH (09:20)
[2023-04-09] MEDS: AMINO ACIDS/PROTEIN HYDROLYS 30 ML LIQUID.PKT PO SCH ×2 (09:20→16:30)
[2023-04-09] MEDS: metoPROLOL SUCCINATE 25 MG TAB.SR.24H (FP) PO SCH ×2 (09:20→21:57)
[2023-04-09 09:28] LABS: BASO % 0.6 % (0-2.0); EOS % 1.9 % (0-4.5); HEMATOCRIT 26.9 % (32.4-45.2); HEMOGLOBIN 9.1 GM/dL (10.7-15.3); MCH 31.7 pg (25.7-33.7); MCHC 33.8 g/dl (32.0-36.0); MEAN CELL VOLUME 93.8 fl (80-96); MEAN PLT VOLUME 8.4 fl (7.5-11.1); MONO % 7.2 % (3.8-10.2); NEUT % 51.3 % (42.8-82.8); PLATELET COUNT 239 10^3/uL (134-434); RBC 2.87 M/mm3 (3.60-5.2); RDW 17.7 % (11.6-15.6); WHITE BLOOD COUNT 5.2 K/mm3 (4.0-10.0)
[2023-04-09 09:46] LABS: POTASSIUM 3.5 mmol/L (3.5-5.1)
[2023-04-09 09:56] LABS: ALBUMIN 1.8 g/dl (3.4-5.0); BLOOD UREA NITROGEN 27.1 mg/dL (7-18)
[2023-04-09 10:00] LABS: BILIRUBIN,TOTAL 0.3 mg/dL (0.2-1)
[2023-04-09] MEDS: SPIRONOLACTONE 25 MG TABLET PO SCH (10:09)
[2023-04-09] MEDS: ATORVASTATIN CA 40 MG TABLET (FP) PO SCH (21:57)
[2023-04-10] MEDS ORDERED: LEVOTHYROXINE NA 100 MCG TABLET (FP) PO SCH (07:00)
[2023-04-10] MEDS: INSULIN SLIDING SCALE (NOVOLOG) 1 VIAL SQ SCH ×2 (08:20→11:59)
[2023-04-10 08:57] VITALS: BP 136/58; PULSE 67; TEMP 98.7
[2023-04-10] MEDS: metoPROLOL SUCCINATE 25 MG TAB.SR.24H (FP) PO SCH (09:27)
[2023-04-10] MEDS: AMINO ACIDS/PROTEIN HYDROLYS 30 ML LIQUID.PKT PO SCH (09:27)
[2023-04-10] MEDS: FUROSEMIDE 40 MG TABLET (FP) PO SCH (09:27)
[2023-04-10] MEDS: PANTOPRAZOLE 40 MG TABLET PO SCH (09:27)
[2023-04-10] MEDS: POLYETHYLENE GLYCOL (HEALTHYLAX) 3350 17 GM PACKET PO SCH (09:27)
[2023-04-10] MEDS: MULTIVITAMINS (DAILY MVI) TABLET (FP) PO SCH (09:28)
[2023-04-10] MEDS: SPIRONOLACTONE 25 MG TABLET PO SCH (09:28)
[2023-04-10] MEDS: APIXABAN 2.5 MG TABLET PO SCH (09:28)
[2023-04-10] MEDS: ASCORBIC ACID 250 MG TABLET (FP) PO SCH (09:28)
[2023-04-10] MEDS: LOSARTAN POTASSIUM 50 MG TABLET PO SCH (09:28)
[2023-04-10] MEDS ORDERED: LIOTHYRONINE SODIUM 5 MCG TABLET PO SCH (10:00)
[2023-04-10 10:58] LABS: BASO % 0.4 % (0-2.0); HEMATOCRIT 28.3 % (32.4-45.2); HEMOGLOBIN 9.2 GM/dL (10.7-15.3); LYMPH % 37.4 % (8-40); MCH 31.1 pg (25.7-33.7); MCHC 32.5 g/dl (32.0-36.0); MEAN PLT VOLUME 8.6 fl (7.5-11.1); MONO % 6.5 % (3.8-10.2); NEUT % 53.7 % (42.8-82.8); PLATELET COUNT 266 10^3/uL (134-434); RBC 2.95 M/mm3 (3.60-5.2); RDW 17.2 % (11.6-15.6); WHITE BLOOD COUNT 6.6 K/mm3 (4.0-10.0)
== END 2023-04-10 13:20 | disposition home or self-care (01) ==
LOC: JER 11:28 → JERBED 18:08 → J5S 23:49
PROVIDERS: ADMIT Internal Medicine; ATTEND Internal Medicine
PROC: 3E033GC Introduction of Other Therapeutic Substance into Peripheral Vein, Percutaneous Approach (ICD-10-PCS; principal; 2023-04-04)
PROC: 3E013VG Introduction of Insulin into Subcutaneous Tissue, Percutaneous Approach (ICD-10-PCS; 2023-04-04)
DX: I73.89 Other specified peripheral vascular diseases (principal); K56.41 Fecal impaction; R18.8 Other ascites; J90 Pleural effusion, not elsewhere classified; E87.20 Acidosis, unspecified; E88.09 Other disorders of plasma-protein metabolism, not elsewhere classified; I11.0 Hypertensive heart disease with heart failure; I50.9 Heart failure, unspecified; I48.91 Unspecified atrial fibrillation; R94.5 Abnormal results of liver function studies; E11.9 Type 2 diabetes mellitus without complications; G62.9 Polyneuropathy, unspecified; I25.10 Atherosclerotic heart disease of native coronary artery without angina pectoris; E78.5 Hyperlipidemia, unspecified; E03.9 Hypothyroidism, unspecified; F03.90 Unspecified dementia, unspecified severity, without behavioral disturbance, psychotic disturbance, mood disturbance, and anxiety; I69.351 Hemiplegia and hemiparesis following cerebral infarction affecting right dominant side; K21.9 Gastro-esophageal reflux disease without esophagitis; Z95.5 Presence of coronary angioplasty implant and graft; Z79.01 Long term (current) use of anticoagulants; D51.0 Vitamin B12 deficiency anemia due to intrinsic factor deficiency; I70.92 Chronic total occlusion of artery of the extremities; K76.0 Fatty (change of) liver, not elsewhere classified; I51.7 Cardiomegaly; Z79.4 Long term (current) use of insulin; Z91.148 Patient's other noncompliance with medication regimen for other reason; Z91.81 History of falling; K74.60 Unspecified cirrhosis of liver
CPT/HCPCS: 36415; 71045-TC-FY; 74181-TC; 75635-TC; 76705-TC; 80048; 80053; 82550; 82553; 82607; 82728; 82746; 82962; 82977; 83516; 83540; 83550; 83605; 83690; 83735; 83880; 84100; 84439; 84443; 84481; 85025; 85610; 85730; 86038; 86704; 86803; 86850; 86900; 86901; 87340; 87517; 87635; 93306-TC; 96361; 96372; 96374; 97161-GP; 99285-25; G0378

== ENCOUNTER 2023-05-29 18:38 | Inpatient (IN) | payer BC, OTHER ==
[2023-05-29] MEDS ORDERED: SODIUM CHLORIDE 1,402 ML IV ONE ×2 (20:16→22:02)
[2023-05-29] MEDS ORDERED: VANCOMYCIN 1,000 MG in DEXTROSE 5%-WATER - 250 ML IVPB ONE (20:40)
[2023-05-29] MEDS ORDERED: PIPERACILLIN/TAZOB 3.375 GM 3.375 GM in DEXTROSE 5%-WATER - 50 ML IVPB ONE (20:40)
[2023-05-29 21:18] LABS: HEMATOCRIT 33.9 % (32.4-45.2); HEMOGLOBIN 10.5 GM/dL (10.7-15.3); MCH 29.5 pg (25.7-33.7); MCHC 30.9 g/dl (32.0-36.0); MEAN CELL VOLUME 95.6 fl (80-96); MEAN PLT VOLUME 9.3 fl (7.5-11.1); PLATELET COUNT 478 10^3/uL (134-434); RBC 3.55 M/mm3 (3.60-5.2); RDW 14.2 % (11.6-15.6); WHITE BLOOD COUNT 17.8 K/mm3 (4.0-10.0)
[2023-05-29] MEDS ORDERED: PIPERACILLIN/TAZOB 3.375 GM 3.375 GM/50 ML BAG IVPB ONE (21:24)
[2023-05-29] MEDS ORDERED: VANCOMYCIN 1 GRAM (PRE-DOCKED) 1,000 MG/250 ML BAG IVPB ONE (21:25)
[2023-05-29 21:44] LABS: CHLORIDE 101 mmol/L (98-107); POTASSIUM 4.3 mmol/L (3.5-5.1); SODIUM 135 mmol/L (136-145)
[2023-05-29 21:46] LABS: ALBUMIN 2.4 g/dl (3.4-5.0); ANION GAP 11 mmol/L (4-13); CO2 23 mmol/L (21-32)
[2023-05-29 21:47] LABS: BLOOD UREA NITROGEN 86.1 mg/dL (7-18); LACTIC ACID 4.6 mmol/L (0.4-2.0)
[2023-05-29 21:49] LABS: CREATININE 1.8 mg/dL (0.55-1.3)
[2023-05-29 21:50] LABS: SGOT/AST 17 U/L (15-37); SGPT/ALT 20 U/L (13-61)
[2023-05-29 21:51] LABS: BILIRUBIN,TOTAL 0.3 mg/dL (0.2-1); TOT PROT 7.4 g/dl (6.4-8.2)
[2023-05-29 21:52] LABS: ALK PHOS 128 U/L (45-117)
[2023-05-29 21:54] LABS: INR 1.92 (0.83-1.09); PROTHROMBIN TIME (PATIENT) 22.1 SEC (9.7-13.0)
[2023-05-29 21:55] LABS: ACTIVATED PTT 29.6 SECONDS (25.2-36.5)
[2023-05-29 21:56] LABS: GLUCOSE,RANDOM 777 mg/dL (74-106)
[2023-05-29 22:02] LABS: ANISOCYTOSIS 1+; MACROCYTOSIS 0; OVALOCYTE 1+; TARGET CELLS 1+; TOXIC GRANULATION 1+
[2023-05-29 22:06] LABS: PLATELET ESTIMATE INCREASED
[2023-05-29 22:43] LABS: EPI CELLS 13 /uL (0-25.1); HYALINE CASTS 1 /uL (0-3.1); URINE APPEARANCE CLEAR; URINE BACTERIA 63 /uL (0-1359); URINE BILIRUBIN NEGATIVE (NEGATIVE); URINE COLOR YELLOW; URINE GLUCOSE (UA) 3+ (NEGATIVE); URINE KETONE NEGATIVE (NEGATIVE); URINE LEUK ESTERASE 2+ (NEGATIVE); URINE NITRITE NEGATIVE (NEGATIVE); URINE PROTEIN NEGATIVE (NEGATIVE); URINE RBC 11 /uL (0-23.9); URINE UROBILINOGEN 0.2 mg/dL (0.2-1.0); URINE WBC 328 /uL (0-25.8)
[2023-05-29] MEDS ORDERED: SODIUM CHLORIDE 0.9% 500 ML INFUS.BAG IV ONE (22:48)
[2023-05-29] MEDS ORDERED: INSULIN REGULAR HUMAN 100 UNITS/ML *VIAL IVPUSH ONE (23:16)
[2023-05-30 00:32] LABS: VENOUS BASE EXCESS -1.2 mmol/L (-2-2); VENOUS O2 SATURATION 50.9 % (70-80); VENOUS PCO2 44.4 mmHg (38-52); VENOUS PH 7.357 (7.310-7.410)
[2023-05-30] MEDS ORDERED: ACETAMINOPHEN 325 MG TABLET (FP) PO PRN (02:10)
[2023-05-30] MEDS ORDERED: INSULIN REGULAR HUMAN 100 UNITS/ML *VIAL* (FOR IVP) IVPUSH ONE ×2 (02:21→03:39)
[2023-05-30] MEDS ORDERED: SODIUM CHLORIDE 0.45% 1,000 ML IV SCH (02:30)
[2023-05-30] MEDS ORDERED: BISACODYL 10 MG SUPP.RECT PR PRN (02:35)
[2023-05-30] MEDS ORDERED: INSULIN REGULAR HUMAN 100 UNITS/ML *VIAL IVPUSH ONE (02:46)
[2023-05-30] MEDS ORDERED: METOPROLOL TARTRATE 5 MG/5 ML VIAL IVPUSH ONE (03:20)
[2023-05-30] MEDS ORDERED: INSULIN REGULAR 100 UNITS in SODIUM CHLORIDE 99 ML IVPB SCH ×2 (03:30→03:45)
[2023-05-30] MEDS ORDERED: LEVOTHYROXINE NA 100 MCG TABLET (FP) PO SCH (07:00)
[2023-05-30 07:30] LABS: HEMOGLOBIN 9.5 GM/dL (10.7-15.3); MCH 29.6 pg (25.7-33.7); MCHC 31.6 g/dl (32.0-36.0); MEAN CELL VOLUME 93.7 fl (80-96); MEAN PLT VOLUME 8.9 fl (7.5-11.1); PLATELET COUNT 444 10^3/uL (134-434); RDW 13.5 % (11.6-15.6); WHITE BLOOD COUNT 20.6 K/mm3 (4.0-10.0)
[2023-05-30] MEDS ORDERED: dilTIAZem HCL 50 MG/10 ML - 10 ML VIAL IVPUSH PRN (07:34)
[2023-05-30 07:44] LABS: INR 1.87 (0.83-1.09); PROTHROMBIN TIME (PATIENT) 21.6 SEC (9.7-13.0)
[2023-05-30 07:46] LABS: ACTIVATED PTT 27.8 SECONDS (25.2-36.5)
[2023-05-30 07:49] LABS: CHLORIDE 107 mmol/L (98-107); SODIUM 140 mmol/L (136-145)
[2023-05-30 08:04] LABS: CALCIUM 9.6 mg/dL (8.5-10.1); GLUCOSE,RANDOM 319 mg/dL (74-106)
[2023-05-30 08:05] LABS: BLOOD UREA NITROGEN 81.6 mg/dL (7-18); CO2 22 mmol/L (21-32); MAGNESIUM 2.3 mg/dL (1.8-2.4)
[2023-05-30 08:08] LABS: CREATININE 1.5 mg/dL (0.55-1.3); PHOSPHOROUS 2.4 mg/dL (2.5-4.9); SGOT/AST 24 U/L (15-37); SGPT/ALT 18 U/L (13-61)
[2023-05-30 08:09] LABS: TOT PROT 6.2 g/dl (6.4-8.2)
[2023-05-30 08:11] LABS: ALK PHOS 100 U/L (45-117); BILIRUBIN,TOTAL 0.3 mg/dL (0.2-1)
[2023-05-30 08:24] LABS: ANION GAP 12 mmol/L (4-13); POTASSIUM 2.7 mmol/L (3.5-5.1)
[2023-05-30] MEDS ORDERED: POTASSIUM CHLORIDE ORAL LIQUID 20 MEQ/15 ML PO ONE (09:00)
[2023-05-30] MEDS: METOPROLOL TARTRATE 25 MG TABLET (FP) PO SCH (09:05)
[2023-05-30 09:16] LABS: ANISOCYTOSIS 1+; MACROCYTOSIS 0; OVALOCYTE 1+
[2023-05-30 09:20] LABS: PLATELET ESTIMATE INCREASED
[2023-05-30] MEDS ORDERED: SODIUM CHLORIDE 0.45% 1,000 ML with POTASSIUM CHLORIDE 40 MEQ IV SCH (09:30)
[2023-05-30] MEDS ORDERED: POLYETHYLENE GLYCOL (HEALTHYLAX) 3350 17 GM PACKET PO SCH (10:00)
[2023-05-30] MEDS ORDERED: PANTOPRAZOLE 40 MG TABLET PO SCH (10:00)
[2023-05-30] MEDS ORDERED: APIXABAN 2.5 MG TABLET PO SCH (10:00)
[2023-05-30] MEDS ORDERED: CEFTRIAXONE 1 GM in DEXTROSE 5%-WATER - 50 ML IVPB SCH (10:00)
[2023-05-30] MEDS ORDERED: ASCORBIC ACID 250 MG TABLET (FP) PO SCH (10:00)
[2023-05-30] MEDS: POTASSIUM CHLORIDE 40 MEQ in AMINO ACIDS 4.25%/D5W 1,000 ML IV SCH (13:17)
[2023-05-30] MEDS: PIPERACILLIN/TAZOB 2.25 GM 2.25 GM in DEXTROSE 5%-WATER - 50 ML IVPB SCH ×2 (13:17→18:47)
[2023-05-30] MEDS: POLYETHYLENE GLYCOL (HEALTHYLAX) 3350 17 GM PACKET PO SCH ×2 (13:18→21:27)
[2023-05-30] MEDS: LIOTHYRONINE SODIUM 5 MCG TABLET PO SCH (13:19)
[2023-05-30] MEDS: MUPIROCIN 2% TOPICAL OINTMENT FOR DECOLONIZATION NS SCH ×2 (13:19→21:27)
[2023-05-30 14:04] LABS: EPI CELLS 6 /uL (0-25.1); HYALINE CASTS 0 /uL (0-3.1); URINE APPEARANCE TURBID; URINE BACTERIA 481 /uL (0-1359); URINE BILIRUBIN NEGATIVE (NEGATIVE); URINE COLOR YELLOW; URINE GLUCOSE (UA) 3+ (NEGATIVE); URINE KETONE NEGATIVE (NEGATIVE); URINE LEUK ESTERASE 3+ (NEGATIVE); URINE NITRITE NEGATIVE (NEGATIVE); URINE PROTEIN NEGATIVE (NEGATIVE); URINE UROBILINOGEN 0.2 mg/dL (0.2-1.0); URINE WBC 5822 /uL (0-25.8)
[2023-05-30 15:06] LABS: YEAST NEGATIVE (NEGATIVE)
[2023-05-30 15:07] LABS: URINE RBC NONE SEEN /uL (0-23.9)
[2023-05-30] MEDS ORDERED: ACETAMINOPHEN 1000 MG/100 ML BAG IVPB PRN (15:14)
[2023-05-30] MEDS ORDERED: SODIUM PHOSPHATE/NA BIPHOS 133 ML ENEMA RC ONE (15:15)
[2023-05-30] MEDS: INSULIN ASPART SLIDING SCALE (NOVOLOG) 1 VIAL SQ SCH ×2 (18:45→22:55)
[2023-05-30] MEDS ORDERED: VANCOMYCIN 500 MG in DEXTROSE 5%-WATER - 100 ML IVPB SCH (20:00)
[2023-05-30] MEDS: CHLORHEXIDINE GLUCONATE 4% CLEANSER FOR DECOLONIZATION TP SCH (21:27)
[2023-05-30] MEDS ORDERED: LACTATED RINGERS SOLUTION 1000 ML INFUS.BAG IV ONE ×2 (21:33→23:00)
[2023-05-30] MEDS ORDERED: ATORVASTATIN CA 80 MG TABLET (FP) PO SCH (22:00)
[2023-05-30 23:46] LABS: CHLORIDE 107 mmol/L (98-107); SODIUM 142 mmol/L (136-145)
[2023-05-30 23:48] LABS: ALBUMIN 1.8 g/dl (3.4-5.0)
[2023-05-30 23:49] LABS: BLOOD UREA NITROGEN 88.3 mg/dL (7-18); CO2 12 mmol/L (21-32); GLUCOSE,RANDOM 251 mg/dL (74-106)
[2023-05-30 23:52] LABS: CREATININE 1.7 mg/dL (0.55-1.3); SGPT/ALT 506 U/L (13-61)
[2023-05-30 23:53] LABS: BILIRUBIN,TOTAL 0.5 mg/dL (0.2-1); TOT PROT 5.8 g/dl (6.4-8.2)
[2023-05-30 23:55] LABS: ALK PHOS 111 U/L (45-117)
[2023-05-31 00:09] LABS: ANION GAP 23 mmol/L (4-13); LACTIC ACID 17.6 mmol/L (0.4-2.0); POTASSIUM 6.1 mmol/L (3.5-5.1); SGOT/AST 2177 U/L (15-37)
[2023-05-31] MEDS ORDERED: INSULIN REGULAR HUMAN 100 UNITS/ML *VIAL IVPUSH ONE ×3 (00:20→20:49)
[2023-05-31] MEDS ORDERED: DEXTROSE 50%-WATER 25 GM/50 ML DISP.SYRIN IVPUSH ONE ×3 (00:21→20:51)
[2023-05-31] MEDS ORDERED: MEROPENEM 1 GM in DEXTROSE 5%-WATER 100 ML IVPB SCH ×2 (00:45→22:00)
[2023-05-31] MEDS ORDERED: SODIUM BICARBONATE 8.4% - 150 MEQ in DEXTROSE 5%-WATER - 950 ML IVPB ONE (01:00)
[2023-05-31] MEDS ORDERED: TRIPLE LUMEN FLUSH 4 ML ML IVPUSH PRN (01:29)
[2023-05-31 02:23] LABS: ARTERIAL BLD GAS O2 SATURATION 97.9 % (95-98); ARTERIAL BLOOD GAS BASE EXCESS -13.2 mmol/L (-2-2); ARTERIAL BLOOD GAS PO2 110.2 mmHg (80-100); ARTERIAL BLOOD GAS pH 7.343 (7.350-7.450)
[2023-05-31] MEDS: NOREPINEPHRINE 0.9 % NACL 8 MG/250 ML BAG IVPB SCH ×3 (02:37→22:45)
[2023-05-31] MEDS: INSULIN ASPART SLIDING SCALE (NOVOLOG) 1 VIAL SQ SCH ×6 (02:39→22:10)
[2023-05-31] MEDS: MEROPENEM 500 MG in DEXTROSE 5%-WATER 100 ML IVPB SCH ×2 (03:36→14:36)
[2023-05-31 03:45] LABS: LACTIC ACID 17.4 mmol/L (0.4-2.0)
[2023-05-31] MEDS: POLYETHYLENE GLYCOL (HEALTHYLAX) 3350 17 GM PACKET PO SCH ×3 (05:18→21:26)
[2023-05-31 06:56] LABS: BASO % 0.2 % (0-2.0); EOS % 0.2 % (0-4.5); HEMATOCRIT 21.6 % (32.4-45.2); LYMPH % 3.6 % (8-40); MCH 30.6 pg (25.7-33.7); MCHC 31.7 g/dl (32.0-36.0); MEAN CELL VOLUME 96.3 fl (80-96); MEAN PLT VOLUME 9.8 fl (7.5-11.1); MONO % 2.3 % (3.8-10.2); NEUT % 93.7 % (42.8-82.8); PLATELET COUNT 201 10^3/uL (134-434); RBC 2.25 M/mm3 (3.60-5.2); RDW 13.6 % (11.6-15.6); WHITE BLOOD COUNT 15.5 K/mm3 (4.0-10.0)
[2023-05-31 06:59] LABS: PROTHROMBIN TIME (PATIENT) 86.8 SEC (9.7-13.0)
[2023-05-31] MEDS: LEVOTHYROXINE SODIUM 100 MCG 5 ML VIAL IVPUSH SCH (07:10)
[2023-05-31 07:13] LABS: CHLORIDE 102 mmol/L (98-107); POTASSIUM 5.2 mmol/L (3.5-5.1); SODIUM 141 mmol/L (136-145)
[2023-05-31 07:15] LABS: CALCIUM 9.6 mg/dL (8.5-10.1)
[2023-05-31 07:16] LABS: ALBUMIN 1.8 g/dl (3.4-5.0); ANION GAP 25 mmol/L (4-13); BLOOD UREA NITROGEN 98.6 mg/dL (7-18); CO2 13 mmol/L (21-32); GLUCOSE,RANDOM 273 mg/dL (74-106)
[2023-05-31 07:19] LABS: CREATININE 1.7 mg/dL (0.55-1.3); PHOSPHOROUS 7.6 mg/dL (2.5-4.9)
[2023-05-31 07:20] LABS: BILIRUBIN,TOTAL 0.9 mg/dL (0.2-1); TOT PROT 5.4 g/dl (6.4-8.2)
[2023-05-31 07:56] LABS: LACTIC ACID 17.9 mmol/L (0.4-2.0)
[2023-05-31 07:57] LABS: ALK PHOS 366 U/L (45-117)
[2023-05-31 08:23] LABS: SGPT/ALT 3456 U/L (13-61)
[2023-05-31 08:27] LABS: HEMOGLOBIN 6.9 GM/dL (10.7-15.3)
[2023-05-31 08:35] LABS: SGOT/AST > 20000 U/L (15-37)
[2023-05-31 09:20] LABS: INR 7.63 (0.83-1.09)
[2023-05-31] MEDS: PHYTONADIONE 10 MG/1 ML AMP IVPB ONE ×2 (09:23→10:42)
[2023-05-31] MEDS ORDERED: PANTOPRAZOLE SODIUM 40 MG VIAL IVPUSH SCH (10:00)
[2023-05-31] MEDS: PANTOPRAZOLE SODIUM 40 MG VIAL IVPUSH SCH ×2 (10:40→21:25)
[2023-05-31] MEDS: MUPIROCIN 2% TOPICAL OINTMENT FOR DECOLONIZATION NS SCH ×2 (10:41→21:26)
[2023-05-31] MEDS: LIOTHYRONINE SODIUM 5 MCG TABLET PO SCH (10:41)
[2023-05-31] MEDS ORDERED: VANCOMYCIN/WATER FOR INJ (PEG) 1,000 MG/200 ML BAG IVPB ONE (11:00)
[2023-05-31 11:43] LABS: ANISOCYTOSIS 0; HELMET CELLS 0; HOWELL-JOLLY BODIES 0; MACROCYTOSIS 0; OVALOCYTE 0; ROULEAU 0; SICKELED CELLS 0; TARGET CELLS 0; TEAR DROP CELLS 0; TOXIC GRANULATION 0
[2023-05-31] MEDS: POTASSIUM CHLORIDE 40 MEQ in AMINO ACIDS 4.25%/D5W 1,000 ML IV SCH (12:26)
[2023-05-31 14:44] LABS: LACTIC ACID 12.2 mmol/L (0.4-2.0)
[2023-05-31 15:12] VITALS: BMI 16.5
[2023-05-31] MEDS ORDERED: DEXTROSE 50%-WATER 25 GM/50 ML DISP.SYRIN ONE (18:57)
[2023-05-31] MEDS ORDERED: DEXTROSE 50%-WATER - 25 GM/50 ML VIAL IVPUSH ONE (18:57)
[2023-05-31 19:10] LABS: BASO % 0.2 % (0-2.0); EOS % 1.3 % (0-4.5); HEMATOCRIT 22.4 % (32.4-45.2); HEMOGLOBIN 7.2 GM/dL (10.7-15.3); LYMPH % 6.1 % (8-40); MCH 28.7 pg (25.7-33.7); MCHC 32.2 g/dl (32.0-36.0); MEAN CELL VOLUME 89.3 fl (80-96); MEAN PLT VOLUME 10.2 fl (7.5-11.1); NEUT % 89.4 % (42.8-82.8); PLATELET COUNT 119 10^3/uL (134-434); RBC 2.51 M/mm3 (3.60-5.2); RDW 16.2 % (11.6-15.6); WHITE BLOOD COUNT 13.1 K/mm3 (4.0-10.0)
[2023-05-31 19:18] LABS: PROTHROMBIN TIME (PATIENT) 61.8 SEC (9.7-13.0)
[2023-05-31] MEDS: DEXTROSE 10%-WATER - 1,000 ML IV SCH (19:31)
[2023-05-31 19:48] LABS: INR 5.42 (0.83-1.09)
[2023-05-31 20:15] LABS: ALBUMIN 2.1 g/dl (3.4-5.0); ALK PHOS 526 U/L (45-117); ANION GAP 20 mmol/L (4-13); BLOOD UREA NITROGEN 86.6 mg/dL (7-18); CHLORIDE 103 mmol/L (98-107); CO2 15 mmol/L (21-32); CREATININE 1.8 mg/dL (0.55-1.3); GLUCOSE,RANDOM 31 mg/dL (74-106); POTASSIUM 5.6 mmol/L (3.5-5.1); SGOT/AST 14483 U/L (15-37); SGPT/ALT 2861 U/L (13-61); SODIUM 138 mmol/L (136-145); TOT PROT 5.3 g/dl (6.4-8.2)
[2023-05-31 20:28] LABS: ANISOCYTOSIS 1+; MACROCYTOSIS 0
[2023-05-31] MEDS ORDERED: CALCIUM GLUC IN NACL, ISO-OSM 1 GM/50 ML BAG IVPB ONE (20:51)
[2023-05-31] MEDS: CHLORHEXIDINE GLUCONATE 4% CLEANSER FOR DECOLONIZATION TP SCH (21:25)
[2023-05-31 22:38] LABS: BLOOD UREA NITROGEN 86.3 mg/dL (7-18); CALCIUM 8.8 mg/dL (8.5-10.1); CREATININE 1.9 mg/dL (0.55-1.3); POTASSIUM 5.7 mmol/L (3.5-5.1)
[2023-06-01 01:02] LABS: HEMOGLOBIN 9.6 GM/dL (10.7-15.3); MCH 29.6 pg (25.7-33.7); MCHC 33.1 g/dl (32.0-36.0); MEAN CELL VOLUME 89.3 fl (80-96); MEAN PLT VOLUME 10.3 fl (7.5-11.1); PLATELET COUNT 93 10^3/uL (134-434); RBC 3.25 M/mm3 (3.60-5.2); RDW 15.7 % (11.6-15.6); WHITE BLOOD COUNT 16.4 K/mm3 (4.0-10.0)
[2023-06-01] MEDS: INSULIN ASPART SLIDING SCALE (NOVOLOG) 1 VIAL SQ SCH ×6 (02:31→21:44)
[2023-06-01] MEDS: MEROPENEM 500 MG in DEXTROSE 5%-WATER 100 ML IVPB SCH ×2 (02:31→14:02)
[2023-06-01 04:32] LABS: ANISOCYTOSIS 0; MACROCYTOSIS 0; OVALOCYTE 1+
[2023-06-01 05:33] LABS: ARTERIAL BLD GAS O2 SATURATION 98.7 % (95-98); ARTERIAL BLOOD GAS BASE EXCESS -11.8 mmol/L (-2-2); ARTERIAL BLOOD GAS pH 7.352 (7.350-7.450)
[2023-06-01] MEDS: POLYETHYLENE GLYCOL (HEALTHYLAX) 3350 17 GM PACKET PO SCH ×3 (06:00→21:02)
[2023-06-01] MEDS: LEVOTHYROXINE SODIUM 100 MCG 5 ML VIAL IVPUSH SCH (06:15)
[2023-06-01 07:23] LABS: HEMATOCRIT 28.7 % (32.4-45.2); HEMOGLOBIN 9.5 GM/dL (10.7-15.3); MCH 29.3 pg (25.7-33.7); MCHC 33.3 g/dl (32.0-36.0); MEAN CELL VOLUME 88.1 fl (80-96); MEAN PLT VOLUME 10.1 fl (7.5-11.1); PLATELET COUNT 82 10^3/uL (134-434); RBC 3.25 M/mm3 (3.60-5.2); RDW 16.1 % (11.6-15.6); WHITE BLOOD COUNT 16.9 K/mm3 (4.0-10.0)
[2023-06-01 07:32] LABS: POTASSIUM 5.5 mmol/L (3.5-5.1)
[2023-06-01 07:40] LABS: CALCIUM 8.9 mg/dL (8.5-10.1)
[2023-06-01 07:41] LABS: BLOOD UREA NITROGEN 89.6 mg/dL (7-18); MAGNESIUM 1.8 mg/dL (1.8-2.4)
[2023-06-01 07:44] LABS: PHOSPHOROUS 7.8 mg/dL (2.5-4.9)
[2023-06-01 07:45] LABS: BILIRUBIN,TOTAL 2.9 mg/dL (0.2-1)
[2023-06-01 07:47] LABS: LACTIC ACID 9.6 mmol/L (0.4-2.0)
[2023-06-01 08:29] LABS: PROTHROMBIN TIME (PATIENT) 114.9 SEC (9.7-13.0)
[2023-06-01] MEDS ORDERED: CALCIUM GLUC IN NACL, ISO-OSM 1 GM/50 ML BAG IVPB ONE (09:06)
[2023-06-01] MEDS: LIOTHYRONINE SODIUM 5 MCG TABLET PO SCH (09:08)
[2023-06-01] MEDS: MUPIROCIN 2% TOPICAL OINTMENT FOR DECOLONIZATION NS SCH ×2 (09:08→21:02)
[2023-06-01] MEDS: PHYTONADIONE 10 MG/1 ML AMP IVPB SCH (09:08)
[2023-06-01] MEDS: PANTOPRAZOLE SODIUM 40 MG VIAL IVPUSH SCH ×2 (09:08→21:01)
[2023-06-01] MEDS ORDERED: SODIUM ZIRCONIUM CYCLOSILICATE (LOKELMA) 5 GM PACKET PO ONE (09:11)
[2023-06-01] MEDS ORDERED: INSULIN REGULAR HUMAN 100 UNITS/ML *VIAL IVPUSH ONE (09:12)
[2023-06-01] MEDS ORDERED: DEXTROSE 50%-WATER - 25 GM/50 ML VIAL IVPUSH ONE ×2 (09:13→13:51)
[2023-06-01] MEDS ORDERED: CALCIUM GLUCONATE 10% - 1,000 MG/10 ML VIAL ONE (09:25)
[2023-06-01] MEDS ORDERED: DEXTROSE 50%-WATER 25 GM/50 ML DISP.SYRIN ONE ×3 (09:25→21:40)
[2023-06-01] MEDS: NOREPINEPHRINE 0.9 % NACL 8 MG/250 ML BAG IVPB SCH (10:32)
[2023-06-01 11:25] LABS: INR 10.13 (0.83-1.09)
[2023-06-01 11:59] LABS: ANISOCYTOSIS 0; MACROCYTOSIS 0
[2023-06-01] MEDS: POTASSIUM CHLORIDE 40 MEQ in AMINO ACIDS 4.25%/D5W 1,000 ML IV SCH (13:39)
[2023-06-01 18:31] LABS: PROTHROMBIN TIME (PATIENT) 110.7 SEC (9.7-13.0)
[2023-06-01 18:32] LABS: INR 9.26 (0.83-1.09)
[2023-06-01] MEDS ORDERED: PIPERACILLIN/TAZOB 2.25 GM 2.25 GM in DEXTROSE 5%-WATER - 50 ML IVPB SCH (19:45)
[2023-06-01] MEDS: DEXTROSE 10%-WATER - 1,000 ML IV SCH (20:54)
[2023-06-01] MEDS: PIPERACILLIN/TAZOB 2.25 GM 2.25 GM in DEXTROSE 5%-WATER - 50 ML IVPB SCH (20:57)
[2023-06-01] MEDS: CHLORHEXIDINE GLUCONATE 4% CLEANSER FOR DECOLONIZATION TP SCH (21:01)
[2023-06-01] MEDS: METOPROLOL TARTRATE 25 MG TABLET (FP) PO SCH (21:01)
[2023-06-01] MEDS ORDERED: DEXTROSE 10%-WATER - 1,000 ML IV SCH (21:42)
[2023-06-01] MEDS ORDERED: DEXTROSE 50%-WATER 25 GM/50 ML DISP.SYRIN IVPUSH PRN (21:47)
[2023-06-02] MEDS: NOREPINEPHRINE 0.9 % NACL 8 MG/250 ML BAG IVPB SCH ×2 (01:58→07:33)
[2023-06-02] MEDS: INSULIN ASPART SLIDING SCALE (NOVOLOG) 1 VIAL SQ SCH ×3 (02:05→10:22)
[2023-06-02] MEDS: MEROPENEM 500 MG in DEXTROSE 5%-WATER 100 ML IVPB SCH (02:06)
[2023-06-02] MEDS: VASopressin 40 UNITS/100 ML BAG IV SCH ×3 (02:10→02:12)
[2023-06-02] MEDS: PIPERACILLIN/TAZOB 2.25 GM 2.25 GM in DEXTROSE 5%-WATER - 50 ML IVPB SCH ×2 (02:17→09:17)
[2023-06-02] MEDS: POLYETHYLENE GLYCOL (HEALTHYLAX) 3350 17 GM PACKET PO SCH (06:13)
[2023-06-02 06:32] VITALS: TEMP 97
[2023-06-02 07:12] LABS: HEMATOCRIT 26.6 % (32.4-45.2); HEMOGLOBIN 8.4 GM/dL (10.7-15.3); MCHC 31.5 g/dl (32.0-36.0); MEAN PLT VOLUME 11.3 fl (7.5-11.1); RBC 2.89 M/mm3 (3.60-5.2); RDW 17.5 % (11.6-15.6); WHITE BLOOD COUNT 20.3 K/mm3 (4.0-10.0)
[2023-06-02 07:27] LABS: ACTIVATED PTT 56.3 SECONDS (25.2-36.5)
[2023-06-02 07:28] LABS: PLATELET COUNT 36 10^3/uL (134-434)
[2023-06-02 07:46] LABS: INR > 15.00 (0.83-1.09)
[2023-06-02 07:48] LABS: CHLORIDE 103 mmol/L (98-107); SODIUM 137 mmol/L (136-145)
[2023-06-02 07:53] LABS: ALBUMIN 1.8 g/dl (3.4-5.0); BLOOD UREA NITROGEN 81.6 mg/dL (7-18); CO2 11 mmol/L (21-32); GLUCOSE,RANDOM 126 mg/dL (74-106)
[2023-06-02 07:55] LABS: CALCIUM 8.6 mg/dL (8.5-10.1)
[2023-06-02 07:56] LABS: CREATININE 2.4 mg/dL (0.55-1.3)
[2023-06-02 07:57] LABS: BILIRUBIN,TOTAL 4.7 mg/dL (0.2-1)
[2023-06-02 07:58] LABS: TOT PROT 4.4 g/dl (6.4-8.2)
[2023-06-02 08:22] LABS: ALK PHOS 471 U/L (45-117); ANION GAP 24 mmol/L (4-13); POTASSIUM 6.4 mmol/L (3.5-5.1); SGOT/AST 3406 U/L (15-37); SGPT/ALT 1669 U/L (13-61)
[2023-06-02] MEDS ORDERED: INSULIN REGULAR HUMAN 100 UNITS/ML *VIAL ONE ×2 (09:11→09:29)
[2023-06-02 09:12] VITALS: RESP 20
[2023-06-02] MEDS: LEVOTHYROXINE SODIUM 100 MCG 5 ML VIAL IVPUSH SCH (09:14)
[2023-06-02] MEDS: PANTOPRAZOLE SODIUM 40 MG VIAL IVPUSH SCH (09:15)
[2023-06-02] MEDS: MUPIROCIN 2% TOPICAL OINTMENT FOR DECOLONIZATION NS SCH (09:16)
[2023-06-02] MEDS: LIOTHYRONINE SODIUM 5 MCG TABLET PO SCH (09:16)
[2023-06-02] MEDS: PHYTONADIONE 10 MG/1 ML AMP IVPB SCH (09:16)
[2023-06-02] MEDS: METOPROLOL TARTRATE 25 MG TABLET (FP) PO SCH (09:17)
[2023-06-02] MEDS ORDERED: DEXTROSE 50%-WATER 25 GM/50 ML DISP.SYRIN IVPUSH ONE (09:45)
[2023-06-02] MEDS ORDERED: CALCIUM GLUC IN NACL, ISO-OSM 1 GM/50 ML BAG IVPB ONE (09:45)
[2023-06-02] MEDS ORDERED: INSULIN REGULAR HUMAN 100 UNITS/ML *VIAL IVPUSH ONE (09:45)
[2023-06-02] MEDS ORDERED: SODIUM BICARBONATE 8.4% 50 MEQ/50 ML DISP.SYRIN IVPUSH ONE (09:45)
[2023-06-02 10:16] VITALS: BP 101/46; PULSE 85
[2023-06-02] MEDS ORDERED: SODIUM BICARBONATE 8.4% 50 MEQ/50 ML DISP.SYRIN ONE (10:21)
[2023-06-02] MEDS ORDERED: SODIUM BICARBONATE 8.4% - 150 MEQ in DEXTROSE 5%-WATER - 950 ML IV SCH (11:00)
[2023-06-02 11:51] LABS: ANISOCYTOSIS 0; MACROCYTOSIS 0
== END 2023-06-02 14:46 | disposition expired | DRG 871 ==
LOC: JER 18:38 → JERBED 23:42 → JICU 05-30 01:28
PROVIDERS: ADMIT Family Medicine; ATTEND Family Medicine
PROC: 05H633Z Insertion of Infusion Device into Left Subclavian Vein, Percutaneous Approach (ICD-10-PCS; principal; 2023-05-31)
PROC: B547ZZA Ultrasonography of Left Subclavian Vein, Guidance (ICD-10-PCS; 2023-05-31)
PROC: 4A133B1 Monitoring of Arterial Pressure, Peripheral, Percutaneous Approach (ICD-10-PCS; 2023-05-31)
PROC: 4A133J1 Monitoring of Arterial Pulse, Peripheral, Percutaneous Approach (ICD-10-PCS; 2023-05-31)
PROC: 30233N1 Transfusion of Nonautologous Red Blood Cells into Peripheral Vein, Percutaneous Approach (ICD-10-PCS; 2023-05-31)
PROC: 30233K1 Transfusion of Nonautologous Frozen Plasma into Peripheral Vein, Percutaneous Approach (ICD-10-PCS; 2023-05-31)
DX: A41.89 Other specified sepsis (principal); E11.01 Type 2 diabetes mellitus with hyperosmolarity with coma; L89.154 Pressure ulcer of sacral region, stage 4; R65.21 Severe sepsis with septic shock; U07.1 COVID-19; G93.41 Metabolic encephalopathy; J18.9 Pneumonia, unspecified organism; R18.8 Other ascites; K55.9 Vascular disorder of intestine, unspecified; M46.28 Osteomyelitis of vertebra, sacral and sacrococcygeal region; D68.9 Coagulation defect, unspecified; N39.0 Urinary tract infection, site not specified; E46 Unspecified protein-calorie malnutrition; Z68.1 Body mass index [BMI] 19.9 or less, adult; N17.9 Acute kidney failure, unspecified; I69.351 Hemiplegia and hemiparesis following cerebral infarction affecting right dominant side; K92.2 Gastrointestinal hemorrhage, unspecified; E87.20 Acidosis, unspecified; I13.0 Hypertensive heart and chronic kidney disease with heart failure and stage 1 through stage 4 chronic kidney disease, or unspecified chronic kidney disease; I46.9 Cardiac arrest, cause unspecified; E11.22 Type 2 diabetes mellitus with diabetic chronic kidney disease; N18.9 Chronic kidney disease, unspecified; F03.90 Unspecified dementia, unspecified severity, without behavioral disturbance, psychotic disturbance, mood disturbance, and anxiety; I50.9 Heart failure, unspecified; E03.9 Hypothyroidism, unspecified; I35.0 Nonrheumatic aortic (valve) stenosis; E11.51 Type 2 diabetes mellitus with diabetic peripheral angiopathy without gangrene; I48.91 Unspecified atrial fibrillation; K72.90 Hepatic failure, unspecified without coma; E78.5 Hyperlipidemia, unspecified; K21.9 Gastro-esophageal reflux disease without esophagitis; I25.10 Atherosclerotic heart disease of native coronary artery without angina pectoris; I44.0 Atrioventricular block, first degree; K76.0 Fatty (change of) liver, not elsewhere classified; K80.20 Calculus of gallbladder without cholecystitis without obstruction; E87.5 Hyperkalemia; Z95.5 Presence of coronary angioplasty implant and graft
CPT/HCPCS: 0241U-QW; 36415; 36430; 36600; 71045-TC-FY; 74018-TC-FY; 74176-TC; 76705-TC; 80048; 80053; 81003; 82010; 82436; 82550; 82570; 82803; 82962; 83036; 83605; 83735; 83930; 84100; 84133; 84300; 84436; 84443; 84484; 84540; 85025; 85384; 85610; 85730; 86140; 86850; 86900; 86901; 86922; 87040; 87070; 87076; 87077; 87086; 87186; 87205; 93005; 93010; 99285-25; G0480; J3490; P9017; P9038; P9058